=== PATIENT | male | born 1940 | race Caucasian/White ===

== ENCOUNTER 2020-05-31 08:42 | Outpatient (CLI) | payer MEDICARE, SELFPAY ==
[2020-05-31 08:57] LABS: Basophils Absolute Auto 0.1 K/mm3 (0.0-0.1); Basophils Percent Auto 1.8 % (0.2-1.2); Eosinophils Absolute Auto 0.4 K/mm3 (0-0.3); Eosinophils Percent Auto 6.5 % (0-4.4); Hematocrit 44.7 % (42.0-52.0); Hemoglobin 15.1 g/dL (14.0-18.0); Lymphocytes Absolute Auto 1.11 K/mm3 (0.9-3.2); Lymphocytes Percent Auto 16.4 % (18.3-44.2); Mean Corpuscular HGB Conc 33.8 g/dl (32-36); Mean Corpuscular Hemoglobin 30.9 pg (26-34); Mean Corpuscular Volume 91.4 fl (80-100); Mean Platelet Volume 8.9 fl (7.4-10.4); Monocytes Absolute Auto 0.4 K/mm3 (0.1-0.6); Monocytes Percent Auto 6.5 % (2.6-8.5); Neutrophils Absolute Auto 4.7 K/mm3 (1.3-6.7); Neutrophils Percent Auto 68.8 % (45.5-73.1); Platelet Count Result 221 k/mm3 (150-375); Red Blood Count 4.89 M/mm3 (4.6-6.20); Red Cell Distribution Width 12.4 % (11.5-14.5); White Blood Count 6.8 K/mm3 (4.5-10.0)
[2020-05-31 09:10] LABS: Alanine Aminotransferase 76 U/L (4-50); Albumin Level 4.2 g/dL (3.5-5.1); Alkaline Phosphatase 50 U/L (38-126); Anion Gap 6 mmol/L (8-16); Aspartate Amino Transferase 47 U/L (17-59); Bilirubin,Total 0.7 mg/dL (0.2-1.3); Blood Urea Nitrogen 11 mg/dL (9-20); Calcium 9.4 mg/dL (8.4-10.2); Carbon Dioxide 32 mmol/L (22-30); Chloride 103 mmol/L (98-107); Cholesterol 166 mg/dL (0-200); Estimated Glomerular Filt Rate > 60; Glucose 121 mg/dL (75-110); HDL Direct 43 mg/dL; Potassium 3.9 mmol/L (3.4-5.0); Sodium 141 mmol/L (137-145); Triglycerides 137 mg/dL (<150)
[2020-05-31 09:20] LABS: LDL Cholesterol Direct 91 mg/dL
[2020-06-04 00:20] LABS: PSA, Free 0.91 ng/mL; PSA, Total 5.9 ng/mL (<=4.0); Percent Free Prostate Spec Ag 15 % (>25)
== END 2020-05-31 08:43 | disposition home or self-care (01) ==
PROVIDERS: PCP Family Medicine; Visit Provider Family Medicine
DX: N40.1 Benign prostatic hyperplasia with lower urinary tract symptoms (principal); I10 Essential (primary) hypertension; E78.2 Mixed hyperlipidemia
CPT/HCPCS: 36415; 80053; 80061; 84153; 84154; 85025

== ENCOUNTER 2021-05-08 09:53 | Outpatient (CLI) | payer MEDICARE, SELFPAY ==
[2021-05-08 10:28] LABS: Basophils Absolute Auto 0.1 K/mm3 (0.0-0.1); Basophils Percent Auto 1.2 % (0.2-1.2); Eosinophils Absolute Auto 0.1 K/mm3 (0-0.3); Eosinophils Percent Auto 1.9 % (0-4.4); Hematocrit 46.3 % (42.0-52.0); Hemoglobin 15.5 g/dL (14.0-18.0); Immature Granulocyte Absolute 0.02 K/mm3 (0.00-0.031); Immature Granulocyte Percent A 0.3 % (0-0.5); Lymphocytes Absolute Auto 0.83 K/mm3 (0.9-3.2); Lymphocytes Percent Auto 11.2 % (18.3-44.2); Mean Corpuscular HGB Conc 33.5 g/dl (32-36); Mean Corpuscular Hemoglobin 30.5 pg (26-34); Mean Corpuscular Volume 91.1 fl (80-100); Mean Platelet Volume 9.1 fl (7.4-10.4); Monocytes Absolute Auto 0.5 K/mm3 (0.1-0.6); Monocytes Percent Auto 6.8 % (2.6-8.5); Neutrophils Absolute Auto 5.8 K/mm3 (1.3-6.7); Neutrophils Percent Auto 78.6 % (45.5-73.1); Platelet Count Result 212 k/mm3 (150-375); Red Blood Count 5.08 M/mm3 (4.6-6.20); Red Cell Distribution Width 13.2 % (11.5-14.5); White Blood Count 7.4 K/mm3 (4.5-10.0)
[2021-05-08 10:42] LABS: Alanine Aminotransferase 154 U/L (4-50); Albumin Level 4.5 g/dL (3.5-5.1); Alkaline Phosphatase 65 U/L (38-126); Anion Gap 8 mmol/L (8-16); Aspartate Amino Transferase 81 U/L (17-59); Blood Urea Nitrogen 14 mg/dL (9-20); Calcium 9.6 mg/dL (8.4-10.2); Carbon Dioxide 30 mmol/L (22-30); Chloride 104 mmol/L (98-107); Cholesterol 263 mg/dL (0-200); Estimated Glomerular Filt Rate > 60; Glucose 111 mg/dL (65-110); HDL Direct 47 mg/dL; Potassium 3.7 mmol/L (3.4-5.0); Sodium 142 mmol/L (137-145); Triglycerides 96 mg/dL (<150)
[2021-05-08 10:53] LABS: LDL Cholesterol Direct 185 mg/dL
[2021-05-08 11:34] LABS: Vitamin B12 > 1000.0 pg/mL (239-931)
[2021-05-11 11:56] LABS: Vitamin B6 62.1 ng/mL (2.1-21.7)
[2021-05-12 20:52] LABS: PSA, Free 0.98 ng/mL; PSA, Total 5.2 ng/mL (<=4.0); Percent Free Prostate Spec Ag 19 % (>25)
== END 2021-05-08 09:54 | disposition home or self-care (01) ==
PROVIDERS: PCP Family Medicine; Visit Provider Family Medicine
DX: R97.20 Elevated prostate specific antigen [PSA] (principal); I10 Essential (primary) hypertension; E78.2 Mixed hyperlipidemia; E56.9 Vitamin deficiency, unspecified; E03.9 Hypothyroidism, unspecified; R68.89 Other general symptoms and signs
CPT/HCPCS: 36415; 80053; 80061; 82607; 84153; 84154; 84207; 84443; 85025

== ENCOUNTER → 2021-05-16 08:58 | Outpatient (CLI) | payer MEDICARE, SELFPAY ==
--- NOTE | ~2021-05-16 | US_ITS ---
EXAMINATION: US abdomen limited DATE: 05/16/2021 10:40 INDICATION: Abnormal levels of other serum enzymes TECHNIQUE: Multiple grayscale and Doppler ultrasound images of the abdomen were obtained. COMPARISON: None FINDINGS: The pancreatic head and body are normal in appearance. The pancreatic tail is not visualized. Liver has normal contour, with a smooth surface. There is increased parenchymal echogenicity and coarsened echotexture consistent with diffuse hepatic steatosis with typical small geographic hypoechoic region s of focal fatty sparing along the gallbladder fossa. 2.7 cm anechoic hepatic cyst. No other hepatic lesions identified. No intrahepatic biliary duct dilation suspected. Portal venous flow was seen in t he hepatopetal, normal direction and has normal Doppler waveform. The gallbladder is normal in appear ance. There is no cholelithiasis. The common bile duct measures 4 mm, which is normal. Visualized po rtions of the inferior vena cava and aorta are normal. Right kidney measures 10.9 cm in length with n ormal contour and echogenicity and no hydronephrosis. IMPRESSION: 1. Diffuse hepatic steatosis. Reviewed, dictated and finalized at location A. IGN EXCHANGE DEALER
--- NOTE | ~2021-05-16 | MR_ITS ---
EXAMINATION: MR brain IAC wo/w con DATE: 05/16/2021 10:17 INDICATION: Other general symptoms and signs. TECHNIQUE: Magnetic resonance imaging (MRI) of the brain, brainstem, and internal auditory canals was performed without and with 18 mL MultiHance intravenous contrast. Sequences included sagittal and ax ial T1-weighted FSE, axial diffusion-weighted FS EPI, axial T2*-weighted GRE, axial T2-weighted FLAIR Propeller, axial T2-weighted Propeller, small rpyan-kb-cloa coronal FIESTA, small jyjmy-ij-wpcm sudhakar nal T1-weighted FSE, and small ublxq-po-axui axial T1-weighted SPGR. Postcontrast sequences included axial T1-weighted FSE, small oerrh-wz-lhko coronal T1-weighted FSE, and small hdrcs-cf-feif axial T1- weighted SPGR. Apparent diffusion coefficient (ADC) maps were created. COMPARISON: None. FINDINGS: There are scattered areas of nonspecific increased T2-weighted signal intensity in the cere bral white matter, which is within normal limits for the patient's age. There is no intracranial hemo rrhage, acute infarction, or abnormal intracranial mass lesion. The ventricles are normal in size. Th ere are likely changes of ocular lens replacement surgeries. There is mild mucosal thickening in the ethmoid sinuses. There is a trace right mastoid effusion. The internal auditory canals and inner and middle ears are normal. IMPRESSION: 1. Normal aging brain. Reviewed, dictated and finalized at location E. AD MILLING MACHINE SET UP OPERATOR IMPRESSION: 1. Normal aging brain.
[2021-05-16 09:34] LABS: Estimated Glomerular Filt Rate > 60
== END ==
PROVIDERS: PCP Family Medicine; Visit Provider Family Medicine
DX: R74.8 Abnormal levels of other serum enzymes (principal)
CPT/HCPCS: 70553; 76705; A9577

== ENCOUNTER 2021-08-15 18:04 | Observation (INO) | payer MEDICARE, SELFPAY ==
[2021-08-15] VITALS (12 sets, daily range): BP systolic 113–147; BP diastolic 67–87; PULSE 65–72; RESP 17–18; TEMP 36.4; O2SAT 94–100
--- NOTE | ~2021-08-15 | XR_ITS ---
EXAM: XR knee RT 2V HISTORY: pain s/p fall,GENERALIZED PAIN RT KNEE COMPARISON: 05/24/15 FINDINGS: Normal mineralization. No fracture or dislocation. No lytic or blastic lesion. Right knee arthroplasty, without complication. No erosion or periosteal change. Soft tissues within normal limit s. IMPRESSION: No acute osseous finding in the right knee. No hardware related complication. Reviewed, dictated and finalized at location K.
--- NOTE | ~2021-08-15 | CT_ITS ---
EXAMINATION: CT brain wo con DATE: 08/15/2021 22:16 INDICATION: increased confusion, unwitnessed fall today TECHNIQUE: Computed tomography (CT) of the head was performed without intravenous contrast. The mA wa s adjusted according to patient size. Iterative reconstruction technique was employed. The dose-lengt h product was 605.33 mGy-cm. COMPARISON: None FINDINGS: No acute intracranial hemorrhage or extra-axial fluid collection. No hydrocephalus, mass, or herniation. No acute ischemic infarct. Unremarkable dural venous sinus attenuation. No acute osseous abnormality. The aerated spaces are clear. Mild atrophy and moderate chronic white matter change. Bilateral lens replacements. IMPRESSION: No acute intracranial process. Reviewed, dictated and finalized at location K.
[2021-08-15 20:53] LABS: Basophils Absolute Auto 0.1 K/mm3 (0.0-0.1); Basophils Percent Auto 0.5 % (0.2-1.2); Eosinophils Percent Auto 0.2 % (0-4.4); Hematocrit 41.4 % (42.0-52.0); Immature Granulocyte Absolute 0.04 K/mm3 (0.00-0.031); Immature Granulocyte Percent A 0.4 % (0-0.5); Lymphocytes Absolute Auto 0.84 K/mm3 (0.9-3.2); Lymphocytes Percent Auto 7.9 % (18.3-44.2); Mean Corpuscular HGB Conc 33.8 g/dl (32-36); Mean Corpuscular Hemoglobin 30.2 pg (26-34); Mean Corpuscular Volume 89.2 fl (80-100); Mean Platelet Volume 8.9 fl (7.4-10.4); Monocytes Absolute Auto 0.6 K/mm3 (0.1-0.6); Neutrophils Absolute Auto 9.1 K/mm3 (1.3-6.7); Platelet Count Result 224 k/mm3 (150-375); Red Blood Count 4.64 M/mm3 (4.6-6.20); Red Cell Distribution Width 12.8 % (11.5-14.5); White Blood Count 10.7 K/mm3 (4.5-10.0)
[2021-08-15 20:56] LABS: Appearance Urine Clear (Clear); Bilirubin Urine Negative (Negative); Blood Urine Negative (Negative); Color Urine Yellow (Yellow); Glucose Urine UA Negative (Negative); Ketones Urine Trace mg/dL (Negative); Leukocyte Esterase Ur Negative LEU/UL (Negative); Nitrate Urine Negative (Negative); Protein Urine Trace mg/dL (Negative); Urobilinogen Urine 0.2 mg/dL (<2.0); pH Urine 8.5 (5.0-9.0)
--- NOTE | 2021-08-15 20:58 | ED.NAVMDI ---
HPI - Nausea/Vomiting/Diarrhea General Chief complaint: Nausea/Vomiting/Diarrhea <GAYLA Feliciano Last Filed: 08/16/21 02:35> Stated complaint: feel sickly <GAYLA Feliciano Last Filed: 08/16/21 02:35> Time Seen by Provider: 08/15/21 20:24 <GAYLA Feliciano Last Filed: 08/16/21 02:35> History of Present Illness HPI Narrative: Patient is a 80-year-old male with a history of angle-closure glaucoma status post surgery 2 weeks ago, dementia, who presents emergency department with his friend, who is his power of hospital superintendent, for nausea and reported low blood pressure earlier today. Patient's friend states that patient has had increased confusion over the past 2 days as well, and when he went to check on him, he was complaining of nausea. He took his blood pressure, and noted it was low, and decided to bring him to the ED. Patient denies this symptom, he states that he fell earlier today landing on his right knee, is currently feeling fine, and wants to go home. He denies any head injury or loss of consciousness, but he is a poor historian secondary to dementia. POA states that he does not feel that patient is safe to go home due to falls and increased confusion. Additionally, patient has been experiencing eye redness since his surgery, but no pain or change to his vision. <GAYLA Feliciano Last Filed: 08/16/21 02:35> Related Data Home medications: Home Medications Medication Instructions Recorded Confirmed amlodipine 10 mg PO HS 08/16/21 08/16/21 atropine 1 drp RIGHT EYE BID 08/16/21 08/16/21 donepezil 5 mg PO HS 08/16/21 08/16/21 losartan 100 mg PO DAILY 08/16/21 08/16/21 memantine 5 mg PO BID 08/16/21 08/16/21 prednisolone acetate 1 drp RIGHT EYE Q2H 08/16/21 08/16/21 <GAYLA Feliciano Last Filed: 08/16/21 02:35> Allergies/Adverse reactions: Allergies Allergy/AdvReac Type Severity Reaction Status Date / Time No Known Allergies Allergy Verified 08/03/21 13:26 <Inocencia Pisano PA-C - Last Filed: 08/16/21 02:35> Review of Systems Review of Systems: Gen: Denies fevers or chills Eyes: Denies eye pain or visual change ENT: Denies congestion Respiratory: Denies shortness of breath or cough CV: Denies chest pain or palpitations GI: Reports nausea, resolved. Denies abdominal pain emesis or diarrhea denies burning, urgency, frequency or hematuria Musculoskeletal: Denies back pain or muscle pain Neuro: Denies numbness, tingling, weakness or focal weakness Skin: Denies rash Except as documented, all other systems reviewed and negative <Inocencia Pisano PA-C - Last Filed: 08/16/21 02:35> All systems reviewed & are unremarkable except as noted in HPI and below <Inocencia Pisano PA-C - Last Filed: 08/16/21 02:35> [facility] Past Medical History Medical History: Medical History Arthritis Corneal dystrophy Elevated PSA Elevated PSA, less than 10 ng/ml Essential (primary) hypertension Fatty liver Glaucoma (increased eye pressure) Lead exposure Mixed hyperlipidemia <Inocencia Pisano PA-C - Last Filed: 08/16/21 02:35> Surgical History Surgical History: Surgical History History of total knee arthroplasty Hx of blepharoplasty <Inocencia Pisano PA-C - Last Filed: 08/16/21 02:35> Family History Family History: Family History Father Hypertension Cerebrovascular accident Sibling Patient's sister is in good health Family history of lymphoma <Inocencia Pisano PA-C - Last Filed: 08/16/21 02:35> Social History Social History: Social History (Updated 08/03/21 @ 13:27 by Lesley Frazier) Social History: Smoking status: Never smoker Second hand tobacco smoke exposure: No Alcoho
[2021-08-15 21:04] LABS: Mucus Urine Few /lpf; WBC Urine 0-3 /hpf
[2021-08-15 21:07] LABS: Add Urine Microscopic? YES
[2021-08-15 21:08] LABS: Alanine Aminotransferase 56 U/L (4-50); Albumin Level 4.5 g/dL (3.5-5.1); Alkaline Phosphatase 66 U/L (38-126); Anion Gap 9 mmol/L (8-16); Aspartate Amino Transferase 42 U/L (17-59); Bilirubin,Total 0.8 mg/dL (0.2-1.3); Blood Urea Nitrogen 16 mg/dL (9-20); Calcium 10.2 mg/dL (8.4-10.2); Carbon Dioxide 26 mmol/L (22-30); Chloride 103 mmol/L (98-107); Estimated CRCL calculation 63 ml/min; Estimated Glomerular Filt Rate > 60; Glucose 135 mg/dL (65-110); Lipase 192 U/L (23-300); Potassium 3.5 mmol/L (3.4-5.0); Sodium 138 mmol/L (137-145)
[2021-08-15 22:52] LABS: SARS-CoV-2 RNA PCR Negative
[2021-08-16] VITALS (7 sets, daily range): BP systolic 94–155; BP diastolic 54–91; PULSE 65–74; RESP 16–21; TEMP 36.1–37.2; O2SAT 95–100; BMI 27.9
--- NOTE | 2021-08-16 02:01 | PC.NURSE ---
This patient, Enmanuel Kelly, was admitted to [address] [place] [address] Room 305-02. Patient/family oriented to hospital policies and general routines including ID bracelet, bed and alarms, visiting hours, pain management, procedures, bathroom and other care routines, personal items, smoking policy, room service/diet, and visiting hours. Information on how to activate the Rapid Response Team has been discussed. Patient/Family are encouraged to report perceived risks to care and to ask questions if they do not understand what they are told or what they should do.
[2021-08-16] MEDS: ATORVASTATIN 40 MG TABLET PO (09:30)
[2021-08-16] MEDS: ATROPINE SULFATE 1% OPHTH SOLN 5 ML BOTTLE 1 DROP RIGHT EYE ×2 (09:31→17:30)
[2021-08-16] MEDS: prednisoLONE ACETATE 1% OPHTH 5 ML 1 DROP RIGHT EYE ×8 (09:31→22:59)
[2021-08-16] MEDS: TAMSULOSIN HCL 0.4 MG CAPSULE PO (09:32)
[2021-08-16] MEDS: hydroCHLOROthiazide 12.5 MG CAPSULE PO (09:32)
[2021-08-16] MEDS: LOSARTAN POTASSIUM 100 MG TABLET PO (09:32)
--- NOTE | 2021-08-16 11:07 | PM.IMHP ---
H&P: HPI History of Present Illness Date/Time: 08/16/21 11:07 Patient is alert to self and place. He is disoriented to time. He is confused on plan of care. Patient does not a good short-term memory. He continues being needed orientated in turn her conversation. Patient will need placement in a facility for safety and continued management. No acute concerns reported by RN during the night. Chief Complaint: Acute confusion, patient requires placement Review of Systems Review of Systems: All systems reviewed & are unremarkable except as noted in HPI and below PMFSH Past Medical History Medical History Arthritis Corneal dystrophy Elevated PSA Elevated PSA, less than 10 ng/ml Essential (primary) hypertension Fatty liver Glaucoma (increased eye pressure) Lead exposure Mixed hyperlipidemia Surgical History Surgical History History of total knee arthroplasty Hx of blepharoplasty Family History Family History Father Hypertension Cerebrovascular accident Sibling Patient's sister is in good health Family history of lymphoma Social History Social History (Updated 08/03/21 @ 13:27 by Lesley Frazier) Social History: Smoking status: Never smoker Second hand tobacco smoke exposure: No Alcohol intake: current Alcohol use details: Occasionally Substance use: never Substance use type: does not use Additional living arrangements comments: Gender identity (if verbalized by the patient): Male Sexual Orientation (if Verbalized by the Patient): Straight or Heterosexual Spiritual care concerns: No Meds Home Medications and Allergies Home Medications Medication Instructions Recorded Confirmed Type atorvastatin 40 mg tablet 40 mg PO DAILY #90 tablet 05/13/21 08/16/21 Rx hydrochlorothiazide 12.5 mg capsule 12.5 mg PO DAILY #90 cap 05/13/21 08/16/21 Rx latanoprost 0.005 % eye drops 1 drp EACH EYE QPM #7.5 ml 05/13/21 08/16/21 Rx tamsulosin 0.4 mg capsule 0.4 mg PO DAILY #90 cap 05/13/21 08/16/21 Rx donepezil 23 mg tablet 23 mg PO DAILY #90 tablet 08/08/21 08/16/21 Rx memantine 28 mg capsule 28 mg PO DAILY #90 ea 08/08/21 08/16/21 Rx sprinkle,extended release 24hr amlodipine 10 mg PO HS 08/16/21 08/16/21 History atropine 1 drp RIGHT EYE BID 08/16/21 08/16/21 History donepezil 5 mg PO HS 08/16/21 08/16/21 History losartan 100 mg PO DAILY 08/16/21 08/16/21 History memantine 5 mg PO BID 08/16/21 08/16/21 History prednisolone acetate 1 drp RIGHT EYE Q2H 08/16/21 08/16/21 History Allergies Allergy/AdvReac Type Severity Reaction Status Date / Time No Known Allergies Allergy Verified 08/03/21 13:26 Vital Signs Vital Signs - 24 hr 08/15/21 18:59 08/15/21 21:19 08/15/21 21:20 Temperature 97.6 F Pulse Rate 65 Respiratory Rate 17 Blood Pressure 113/67 136/73 Pulse Oximetry 96 99 99 08/15/21 21:30 08/15/21 21:31 08/15/21 21:45 Temperature Pulse Rate Respiratory Rate Blood Pressure 138/79 Pulse Oximetry 99 97 99 08/15/21 21:46 08/15/21 22:00 08/15/21 22:01 Temperature Pulse Rate Respiratory Rate Blood Pressure 125/75 132/71 Pulse Oximetry 98 97 94 08/15/21 22:22 08/15/21 22:32 08/15/21 22:33 Temperature Pulse Rate 71 72 Respiratory Rate 18 18 Blood Pressure 140/83 131/87 147/84 H Pulse Oximetry 100 100 100 08/16/21 00:11 08/16/21 01:35 08/16/21 02:00 Temperature 96.9 F L Pulse Rate 72 74 68 Respiratory Rate 16 16 16 Blood Pressure 105/91 H 135/82 155/82 H Pulse Oximetry 98 99 99 08/16/21 05:24 08/16/21 09:22 Temperature 96.9 F L Pulse Rate 69 Respiratory Rate 16 Blood Pressure 155/81 H Pulse Oximetry 100 100 Exam Narrative: General: No acute distress. Mental Status: Awake, alert and oriented to person, plac
[2021-08-16] MEDS: MEMANTINE HCL XR 28 MG CAP PO (12:23)
[2021-08-16] MEDS: LATANOPROST 0.005% OP SOLN 2.5 ML BTL 1 DROP EACH EYE (17:30)
[2021-08-16] MEDS: amLODIPine BESYLATE 5 MG TABLET 10 MG PO (20:09)
[2021-08-16] MEDS: DONEPEZIL HCL 10 MG TABLET PO (20:09)
[2021-08-17 06:00] VITALS: BP 122/71; PULSE 58; RESP 16; TEMP 36.6; O2SAT 96
[2021-08-17 07:04] LABS: Basophils Absolute Auto 0.2 K/mm3 (0.0-0.1); Eosinophils Absolute Auto 0.3 K/mm3 (0-0.3); Eosinophils Percent Auto 3.7 % (0-4.4); Hematocrit 40.1 % (42.0-52.0); Hemoglobin 13.6 g/dL (14.0-18.0); Immature Granulocyte Absolute 0.03 K/mm3 (0.00-0.031); Immature Granulocyte Percent A 0.4 % (0-0.5); Lymphocytes Absolute Auto 1.43 K/mm3 (0.9-3.2); Lymphocytes Percent Auto 17.5 % (18.3-44.2); Mean Corpuscular HGB Conc 33.9 g/dl (32-36); Mean Corpuscular Hemoglobin 30.4 pg (26-34); Mean Corpuscular Volume 89.7 fl (80-100); Mean Platelet Volume 9.3 fl (7.4-10.4); Monocytes Absolute Auto 0.7 K/mm3 (0.1-0.6); Monocytes Percent Auto 8.6 % (2.6-8.5); Neutrophils Absolute Auto 5.5 K/mm3 (1.3-6.7); Neutrophils Percent Auto 67.8 % (45.5-73.1); Platelet Count Result 221 k/mm3 (150-375); Red Blood Count 4.47 M/mm3 (4.6-6.20); Red Cell Distribution Width 12.9 % (11.5-14.5); White Blood Count 8.2 K/mm3 (4.5-10.0)
[2021-08-17 07:23] LABS: Anion Gap 7 mmol/L (8-16); Blood Urea Nitrogen 18 mg/dL (9-20); Calcium 9.3 mg/dL (8.4-10.2); Carbon Dioxide 27 mmol/L (22-30); Chloride 106 mmol/L (98-107); Estimated CRCL calculation 52 ml/min; Estimated Glomerular Filt Rate > 60; Glucose 93 mg/dL (65-110); Magnesium 1.8 mg/dL (1.6-2.3); Potassium 3.6 mmol/L (3.4-5.0); Sodium 140 mmol/L (137-145)
[2021-08-17 08:00] VITALS: PULSE 58; RESP 16; O2SAT 96
[2021-08-17] MEDS: LOSARTAN POTASSIUM 100 MG TABLET PO (08:42)
[2021-08-17] MEDS: ATORVASTATIN 40 MG TABLET PO (08:42)
[2021-08-17] MEDS: ATROPINE SULFATE 1% OPHTH SOLN 5 ML BOTTLE 1 DROP RIGHT EYE (08:42)
[2021-08-17] MEDS: TAMSULOSIN HCL 0.4 MG CAPSULE PO (08:42)
[2021-08-17] MEDS: MEMANTINE HCL XR 28 MG CAP PO (08:42)
[2021-08-17] MEDS: hydroCHLOROthiazide 12.5 MG CAPSULE PO (08:43)
[2021-08-17] MEDS: prednisoLONE ACETATE 1% OPHTH 5 ML 1 DROP RIGHT EYE ×2 (08:43→10:19)
--- NOTE | 2021-08-17 11:50 | PM.DS ---
DS: Admitting Diagnosis Discharge Date 08/17/2021 Admitting Diagnosis Acute on chronic confusion DS: Discharge Diagnosis Discharge Diagnosis (1) Leukocytosis: Code(s): D72.829 - Elevated white blood cell count, unspecified Status: Acute Assessment and Plan: Monitor vital signs, I and O shows, WBC and trend fever (2) Confusion: Code(s): R41.0 - Disorientation, unspecified Status: Acute Assessment and Plan: Reorientation (3) Alzheimer's dementia: Qualifiers: Alzheimer's disease onset: late-onset Dementia behavioral disturbance: without behavioral disturbance Qualified Code(s): G30.1 - Alzheimer's disease with late onset; F02.80 - Dementia in other diseases classified elsewhere without behavioral disturbance Code(s): G30.9 - Alzheimer's disease, unspecified; F02.80 - Dementia in other diseases classified elsewhere without behavioral disturbance Status: Acute Assessment and Plan: 3 orientated Consult Case Management for possible placement (4) Hyperglycemia: Code(s): R73.9 - Hyperglycemia, unspecified Status: Acute Assessment and Plan: Monitor blood glucose levels were DS: Summary Hospital Course Reason for hospitalization: Acute confusion Hospital Course: Patient is a 80-year-old male who is alert to self and place. He has a past medical history of hypertension hyperlipidemia fatty liver. The patient is a poor historian and therefore is unable to provide an accurate history and plan of care. A mini-mental was performed during his hospitalization which revealed 20 of 30 suggesting moderate dementia. Patient does not have any children and his significant other several years ago. He has a power of patent attorney named Kana who has been a) for 20 years, paperwork is within the chart. My plan is to send him to an assisted living facility. We had an in-depth discussion about fdc, skilled therapy and assisted living facility. Myc was against going to a fdc. We discussed asking for respite care at a assisted living facility for the weekend or possibly staying with the patient during the weekend. Patient is technically able to continue to care for himself and he does not have any medical reasons to be admitted. Patient was able to work well with physical therapy and occupational therapy. Attempted to support friends with resources in the outpatient setting. Case management also provided Ryann with information for assisted living and 24 hour care at home. Status at Discharge Cognitive/behavioral status at discharge: Alert to self and place Functional status at discharge: independent ambulation Overall status at discharge: patient is back to baseline Time Spent with Patient Time attestation: Total time spent providing and/or coordinating discharge services: Time spent: Less than 30 minutes Specific discharge activities: Strongly encouraged to go to an assisted living facility and follow up with primary care physician within 1 week Exam Narrative: General: No acute distress. Mental Status: Awake, alert and oriented to person, place, with clear speech. Skin: Skin in warm, dry and intact without rashes or lesions. Head: Normocephalic and atraumatic. Eyes: Conjunctivae are clear without exudates or hemorrhage. Sclera is non-icteric. EOM are intact, PERRLA. Ears: The external ear and canal are non-tender and without swelling or discharge. Nose: Nasal mucosa is pink and moist. Septum midline. Nares patent bilaterally. Throat: Oral mucosa pink and moist with good dentition. Tongue midline. Neck: The neck supple without adenopathy. Trachea midline. No JVD. Cardiac: S1 and S2 regular rate and rhythm. No murmurs, gallops, or rubs auscultated. Respiratory: Chest wall symmetric, nontender and without deformity or trauma. Respirations even and unlabored. Lung sounds are clear to auscultation in all lobes bilaterally without whe
[2021-08-17 14:00] VITALS: BP 116/57; PULSE 71; RESP 20; TEMP 36.2; O2SAT 95
== END 2021-08-17 15:15 | disposition home or self-care (01) ==
LOC: ANHED 23:04 → ANH3MEDSUR 08-16 11:15
PROVIDERS: Physician Assistant; Admitting Provider Internal Medicine; Emergency Provider Emergency Medicine; PCP Family Medicine; Visit Provider Nurse Practitioner Family
DX: D72.829 Elevated white blood cell count, unspecified (principal); R11.2 Nausea with vomiting, unspecified; R19.7 Diarrhea, unspecified; R41.0 Disorientation, unspecified; E78.5 Hyperlipidemia, unspecified; I10 Essential (primary) hypertension; G30.9 Alzheimer's disease, unspecified; F02.80 Dementia in other diseases classified elsewhere, unspecified severity, without behavioral disturbance, psychotic disturbance, mood disturbance, and anxiety; R73.9 Hyperglycemia, unspecified; Z20.822 Contact with and (suspected) exposure to COVID-19
CPT/HCPCS: 36415; 70450; 73560; 80048; 80053; 81001; 83690; 83735; 85025; 97165; 99285; A9270; C9803; G0378; U0003; U0005

== ENCOUNTER 2024-05-19 16:38 | Inpatient (IN) | payer MEDICARE, SELFPAY ==
--- NOTE | ~2024-05-19 | CT_ITS ---
History: Lethargic, increasing confusion PROCEDURE: CT head without contrast. COMPARISON: 08/15/2021 TECHNIQUE: Axial imaging of the head performed from the skull base to the vertex without IV contrast. Sagittal a nd coronal reformations obtained. DLP: 681mGy-cm FINDINGS: The ventricles are enlarged. The dilatation of the ventricles is proportional to the degree of sulcal prominence, not uncommon in the senescent brain. Decreased attenuation is identified within the periventricular white matter, likely secondary to micr ovascular ischemic disease, in a patient of this age. There is no mass, mass effect or midline shift. There is no abnormal extra-axial fluid collection or intracranial hemorrhage. Visualized paranasal sinuses are clear. The mastoid air cells are well aerated. No acute displaced fractures within the overlying cranium. Impression: No acute intracranial hemorrhage or suspicious mass effect. Reviewed, dictated and finalized at location A. [employer] PROF[employer] Impression: No acute intracranial hemorrhage or suspicious mass effect.
--- NOTE | ~2024-05-19 | XR_ITS ---
CHEST RADIOGRAPH CLINICAL HISTORY: Fever . COMPARISON: 02/15/2016 TECHNIQUE: Single portable view of the chest. FINDINGS The cardiomediastinal silhouette is unremarkable. Increased interstitial markings are identified bilaterally, findings suggesting mild pulmonary vascul ar congestion. The lungs are otherwise clear. IMPRESSION: Mild pulmonary vascular congestion, without focal infiltrate or effusion. Reviewed, dictated and finalized at location A. WORKER
[2024-05-19 16:42] VITALS: BP 131/68; PULSE 75; RESP 23; TEMP 38.2
[2024-05-19 16:46] VITALS: BP 132/67; PULSE 74; RESP 21; TEMP 38.2; O2SAT 94
[2024-05-19 16:47] VITALS: O2SAT 95
--- NOTE | 2024-05-19 17:43 | ECG_ITS ---
Test Date: 2024-05-19 18:31:29 Measurements Intervals [place] Rate: 70 P: 63 UT: 195 QRS: -61 QRSD: 142 T: 23 QT: 392 QTc: 425 Interpretive Statements SINUS RHYTHM RIGHT BUNDLE BRANCH BLOCK LEFT ANTERIOR FASCICULAR BLOCK BASELINE ARTIFACT- I, II, III, AVR, AVL, AVF, V1-V6 ABNORMAL ECG No previous ECG available for comparison Electronically Signed On 05-20-2024 06:10:30 ARTIST'S REPRESENTATIVE by Adrián Wilson D.O.
--- OUTSIDE RECORDS SUMMARY | 2024-05-19 17:58 | XMS_ITS | Continuity of Care Document ---
Author Organization [facility] Address [id number] [place] [address] [address] Phone Care Team Providers Care Pipe Stress Engineer Name Role Phone [facility], [facility] Unavailable Unavail able Sickage, Cassie Unavailable Unavailable Procedures Procedure Date Progressive Lens Per Lens Oct- Vision Svcs Frames Purchases Oct- Anti-reflective Coating Oct- Tint Photochromatic, Polycarb Oct--201 0 Polycarb Lens Per Lens Oct- Medical Tax Oct- Eye Exam & Treatment Oct- Optic Nerve Head Eval Oct- IPO Reduced 15% Oct Fundus Photography W/ Report Refraction Jan- Visual Field Examination-Professional Helen Visual Field Examination(s) Office/outpatient Visit, Est Optic Nerve Head Eval IPO Reduced 15% Office/outpatient Visit, Est Optic Nerve Head Eval IPO Reduced 15% Visual Field Examination-Professional Marcie Visual Field Examination(s) Office/outpatient Visit, Est Optic Nerve Head Eval IOP Red Less Than 15% W Plan Of Care Apr IOP Red Less That 15% W Plan Of Care Apr Office/outpatient Visit, Est Optic Nerve Head Eval Fundus Photography W/ Report Visual Field Examination(s) Office/outpatient Visit, Est Frames Deluxe Progressive Lens, Hi Index Anti-reflective Coating Tint Photochromatic, Hi Index 7 Lens-Index>1.66Plas;>1.80Glas 7 Eye Exam & Treatment Refraction Fundus Photography W/ Report Visual Field Examination(s) Office/outpatient Visit, Est Advance Directives Directive Yes / No Effective Date File Name No Information Encounters Encounter Description Practice Location Reason(s) For Visit Diagnoses Date Provider Providers Copied on Encounter [facility], [address] [place] [address] [address], [place], [place], [address], tel:[phone] [facility] No Information Jan- 9-201 0 [facility] . [address] [facility], [facility] [address], [place], [place], [id number], . tel:[phone] Referring Provider: Jennifer Cochran, [address], [place], [address]. tel:[phone] Provider: Cassie Ayala, [address] [place], [address]. tel:[phone] [facility], [address] [place] [address] [address], [place], [place], [address], [place] tel:[phone] [facility] No Information Jan-1 2-201 0 Gris Mcintyre [address] [facility] [address] , [address], [place], [address], [place]. tel:[phone] Referring Provider: Jennifer Cochran, [address], [place], [address]. tel:[phone] [facility], [address] [place] [address] [address], [place], [place], [address], [place] tel:[phone] [facility] No Information Shamir-0 8-201 0 Gris Mcintyre [address] , [address], [place], [facility], [place]. tel:[phone] Referring Provider: Jennifer Cochran, [address], [place], [facility]. tel:[phone] [facility], [address] [place] [address] [address], [place], [place], [address], [place] tel:[phone] [facility] No Information Shamir-0 7-201 0 Gris Rodriguez. [address] , [address], [place], [facility], [place]. tel:[phone] Referring Provider: Jennifer Cochran, [address], [place], [facility]. tel:[phone] Office/outpat ient Visit, [facility], [address] [facility] [address], [place], [place], [address], [place] tel:[phone] [facility] No Information 2 6-201 0 Gris Rodriguez. [address] , [address], [place], [facility], [place]. tel:[phone] Office/outpat ient Visit, [facility], [address], [place], [place], [address], [place] tel:[phone] [facility] No Information Dec-2 2-200 9 Gris Rodriguez. [address] , [address], [place], [facility], [place]. tel:[phone] [facility], [address], [place], [place], [address], [place] tel:[phone] [facility] No Information August-1 9-200 9 Gris Rodriguez. [address] , [address], [place], [facility], [place]. tel:[phone] Referring Provider: Jennifer Cochran, [address], [place], [facility]. tel:[phone] [facility], [address], [place], [place], [address], [place] tel:[phone] [facility] No Information 8-200 9 Gris Rodriguez. [address] , [address], [place], [facility], [place]. tel:[phone] Referring Provider: Jennifer Cochran, [address], [place], [facility]. tel:[phone] Office/outpat ient Visit, [facility], [address], [place], [place], [address], [place] tel:[phone] [facility] No Information 0200 9 Gris Rodriguez. [address] , [address], [place], [facility], [place]. tel:[phone] Office/outpat ient Visit, [facility], [address], [place], [place], [address], [place] tel:[phone] [facility] No Information 6200 8 Gris Rodriguez. [address] , [address], [place], [facility], [place]. tel:[phone] Referring Provider: Jennifer Cochran, [address], [place], [facility]. tel:[phone] [facility], [address], [place], [place], [address], [place] tel:[phone] [facility] No Information 0200 8 Gris Rodriguez. [address] , [address], [place], [facility], [place]. tel:[phone] Referring Provider: Jennifer Cochran, [address], [place], [facility]. tel:[phone] Office/outpat ient Visit, Est [facility], [address], [place], [place], [address], [place] tel:[phone] [facility] No Information 2 8 Gris Rodriguez. [address] , [address], [place], [facility], [place]. tel:[phone] [facility], [address], [place], [place], [address], [place] tel:[phone] [facility] No Information 7 [facility] . [address] [facility], [address], [place], [place], [address], [place]. tel:[phone] Referring Provider: Jennifer Cochran, [address], [place], [facility]. tel:[phone] sulting Provider: Cassie Ayala, [address] [place] [address], [facility]. tel:[phone] [facility], [address], [place], [place], [address], [place] tel:[phone] [facility] No Information 7 Gris Rodriguez. [address] , [address], [place], [facility], [place]. tel:[phone] Referring Provider: Jennifer Cochran, [address], [place], [facility]. tel:[phone] [facility], [address], [place], [place], [address], [place] tel:[phone] [facility] No Information 7 Gris Rodriguez. [address] , [address], [place], [facility], [place]. tel:[phone] Referring Provider: Jennifer Cochran, [address], [place], [address]. tel:[phone] Office/outpat ient Visit, [facility], [address], [place], [place], [address], [place] tel:[phone] [facility] No Information Mar-2 0-200 7 Landry Jennifer. [address] , [address], [place], [address], [place]. tel:[phone] Family History Family Member Type Diagnosis Age At Onset No Information Payers Payer name Insurance type Covered alliance party ID Authoriza tion(s) No Information Social History Type Description Quantity Date Captured Comments Sex Male Smoking Status No Information Chief Complaint And Reason For Visit No Information Reason For Referral Reason For Referral No Information History Of Present Illness Encounter Date Complaint History Of Prese nt Illness No Information Functional Status Date Functional Assessmen t No Information Instructions Date Instruction Additional Infor mation No Information Assessments Type Assessment Date No Information Patient Care Teams Name Effective Dates (start - stop) Status Members No Information
--- OUTSIDE RECORDS SUMMARY | 2024-05-19 17:58 | XMS_ITS | Referral Summary ---
Author Organization [facility] [place] [address] Address [address] [place] [address] Care Team Providers Care Nut Packer Name Role Phone Mindy Walker MD Primary Care Provider Allergies No known active allergies Medications doxycycline (doxycycline) 100 mg capsule take 1 tablet by oral route every day 0 0 6 Active tafluprost (ZIOPTAN, PF,) 0.0015 % dropperette instill 1 drop by ophthalmic route every day into affected eye(s) 0 each 0 6 Active atorvastatin (LIPITOR) 40 mg tablet take 1 tablet by oral route every day 0 0 6 Active wwrhq-5q-frx-epa -fish oil (OMEGA 3) 350-400 mg capsule 0 0 6 Active meloxicam (MOBIC) 15 mg tablet take 1 tablet by oral route every day 0 0 6 Active b complex vitamins tablet take 1 by Oral route once 0 0 6 Active losartan (COZAAR) 25 mg tablet take 1 tablet by oral route every day 0 0 6 Active ergocalciferol (VITAMIN D2) 50,000 unit capsule take 1 capsule by oral route every week 0 0 6 Active dorzolamide-dolores lol, PF, (COSOPT, PF,) 2-0.5 % dropperette instill 1 drop by ophthalmic route 2 times every day into affected eye(s) 0 each 0 6 Active amLODIPine (NORVASC) 10 mg tablet take 1 tablet by oral route every day 0 0 6 Active Active Problems Problem Noted Date Diagnosed Date Abnormal electrocardiography 05/16/2015 Overview (07/20/2016): Abnormal ECG Preoperative state 05/16/2015 Overview (07/20/2016): Preoperative cardiovascular examination Benign hypertension 05/16/2015 Overview (07/20/2016): HTN (hypertension), benign Dyslipidemia 05/16/2015 Overview (07/20/2016): Dyslipidemia Family history of coronary artery disease 2015 Overview (07/20/2016): Family history of premature CAD Obesity with body mass index 30 or greater 05/16 Overview (07/20/2016): Obesity (BMI 30-39.9) Social History Tobacco Use Types Packs/Day Years Used Date Smoking Tobacco: Former Alcohol Use Standard Drinks/Week Comments Yes 0 (1 standard drink = 0.6 oz pur e alcohol) Personal Safety Answer Date Recorded Getting School Help Needed Not on file 06/27 Sex and Gender Information Value Date Recorded Sex Assigned at Not on file Legal Sex 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 Gender Identity Not on file Sexual Orientation Not on file Last Filed Vital Signs Vital Sign Reading Time Taken Comments Blood Pressure 138/81 05/16/2015 2:16 PM FORENSIC MANAGER Pulse 74 05/16/2015 2:16 PM FORENSIC MANAGER Temperature - - Respiratory Rate - - Oxygen Saturation - - Inhaled Oxygen Concentration - - Weight 102.1 kg (225 lb) 05/16/2015 2:16 PM FORENSIC MANAGER Height 175.3 cm (5' 9 ) 05/16/2015 2:16 PM FORENSIC MANAGER Body Mass Index 33.23 05/16/2015 2:16 PM FORENSIC MANAGER Plan of Treatment [place] [address] MEDICARE [facility] Care Teams Nut Packer Relationship Specialty Start Date End Date Mindy Walker MD [address] [place], [place] [id number] PCP - General 05/24/15
--- OUTSIDE RECORDS SUMMARY | 2024-05-19 17:58 | XMS_ITS | Clinical Summary ---
Author Organization [facility] [place] [address] Address [address] [place] [address] Care Team Providers Care Director Experimental Medicine Name Role Phone Mindy Walker MD Primary [...] route every day 0 0 6 Active sgbem-1p-yeo-epa -fish oil (OMEGA 3) 350-400 mg capsule [...] greater 05/16 Overview (07/20/2016): Obesity (BMI 30-39.9) Family History Medical History Relation Name Comments Heart attack Father 2 Myocardial infa rction; Cause of : Myocardial infarction Hypertension Father 2 Hypertension; Relation Name Status Comments Father 1 (Age 49) Father 2 Social History Tobacco Use Types Packs/Day Years Used Date Smoking Tobacco: Former Alcohol Use Standard Drinks/Week Comments Yes 0 (1 standard drink = 0.6 oz pur e alcohol) Personal Safety Answer Date Recorded Getting School Help Needed Not on file 06/27 Sex and Gender Information Value Date Recorded Sex Assigned at Not on file Legal Sex 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 Gender Identity Not on file Sexual Orientation Not on file Obstetrics History Last Filed Vital Signs Vital Sign Reading Time Taken Comments Blood Pressure 138/81 05/16/2015 2:16 PM INTERNATIONAL SALES MANAGER Pulse 74 05/16/2015 2:16 PM INTERNATIONAL SALES MANAGER Temperature - - Respiratory Rate - - Oxygen Saturation - - Inhaled Oxygen Concentration - - Weight 102.1 kg (225 lb) 05/16/2015 2:16 PM INTERNATIONAL SALES MANAGER Height 175.3 cm (5' 9 ) 05/16/2015 2:16 PM INTERNATIONAL SALES MANAGER Body Mass Index 33.23 05/16/2015 2:16 PM INTERNATIONAL SALES MANAGER Plan of Treatment Not on file Insurance MEDICARE [employer] Care Teams Director Experimental Medicine Relationship Specialty Start Date End Date Mindy Walker MD [address] [facility] [address] [place] [address] PCP - General 05/24/15
[2024-05-19 18:09] VITALS: BP 145/74; PULSE 84; RESP 18; TEMP 38.2; O2SAT 100
--- NOTE | 2024-05-19 18:34 | ED_ITS ---
HPI - General Adult General Chief complaint: Upper Respiratory Infection Stated complaint: lethargic Time Seen by Provider: 05/19/24 17:38 History of Present Illness HPI narrative: This is an 83-year-old male sent from the memory care unit for increased lethargy. The patient himself is A&O x1. He has no complaints. He does not know why he is in the emergency department. The care home says that he has been more lethargic than usual with decreased activity and increased confusion since this morning. 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 Fatty liver Arthritis Essential (primary) hypertension Mixed hyperlipidemia Surgical History Surgical History Hx of blepharoplasty History of total knee arthroplasty Family History Family History Father Hypertension Cerebrovascular accident Sibling Patient's sister is in good health Family history of lymphoma Social History Social History Social History: Smoking status: Never smoker Second hand tobacco smoke exposure: No Alcohol intake: current Alcohol use details: Occasionally Substance use: never Substance use type: does not use Living arrangements: alone Additional living arrangements comments: Occupation/Education: retired Gender identity (if verbalized by the patient): Male Sexual Orientation (if Verbalized by the Patient): Straight or Heterosexual Spiritual care concerns: No Exam 2 Narrative: APPEARANCE: No apparent distress. A&O x1 Head: atraumatic. EYES: EOMI, NOSE: Atraumatic NECK: Trachea midline RESPIRATORY: No increased rate of breathing CTAB CARDIOVASCULAR: RRR, no peripheral edema ABDOMINAL: Non-distended soft nontender MUSCULOSKELETAl: No obvious deformities NEURO: Alert. Moving 4/4 extremities SKIN:: Patient has a large erythematous fluctuant mass on his back consistent with abscess PSYCHIATRIC: Normal affect Course Vital Signs Vital signs: Vital Signs Temperature 100.7 F H 05/19/24 16:42 Pulse Rate 75 05/19/24 16:42 Respiratory Rate 23 H 05/19/24 16:42 Blood Pressure 131/68 05/19/24 16:42 Oxygen Delivery Room Air 05/19/24 16:42 Temperature 100.7 F H 05/19/24 18:09 Pulse Rate 78 05/19/24 19:24 Respiratory Rate 15 05/19/24 19:24 Blood Pressure 142/68 H 05/19/24 19:24 Pulse Oximetry 99 05/19/24 19:24 Oxygen Delivery Room Air 05/19/24 18:09 Procedures Abscess I/D back: Date of Incision: 05/19/24 Technique: incised with #11 blade and probed loculations Amount of fluid expressed (mL): 10 Irrigation: Yes Packing used?: none I&D Results: Pus and Blood Medical Decision Making MDM Narrative Medical decision making narrative: -Course: 83-year-old male presenting with increased lethargy from the care home. On arrival he was febrile. On physical exam he had a large subcutaneous abscess on his back that was incised and drained. Sepsis workup obtained which was positive for influenza. Lactic acid 2.6. Patient received 30 cc/kilogram bolus. Started on Tamiflu. Patient will be placed in observation for further management. -DDX includes but is not limited to: Sepsis UTI dehydration abscess pneumonia viral illness Vital Signs Vital Signs: Vital Signs Temperature 100.7 F H 05/19/24 16:42 Pulse Rate 75 05/19/24 16:42 Respiratory Rate 23 H 05/19/24 16:42 Blood Pressure 131/68 05/19/24 16:42 Oxygen Delivery Room Air 05/19/24 16:42 Temperature 100.7 F H 05/19/24 18:09 Pulse Rate 78 05/19/24 19:24 Respiratory Rate 15 05/19/24 19:24 Blood Pressure 142/68 H 05/19/24 19:24 Pulse Oximetry 99 05/19/24 19:24 Oxygen Delivery Room Air 05/19/24 18:09 Lab Data 05/19/24 18:36 05/19/24 18:36 Labs: Lab Results 0205/19/24 05/19/24 Range/Units 18:36 18:39 18:40 WBC 10.6 H (4.5-10.0) K/mm3 RBC 4.71 (4.6-6.20) M/mm3 Hgb 14.2 (14.0-18.0) g/dL Hct 44.1 (42.0-52.0) % MCV 93.6 (80-100) fl MCH 30.1 (26-34) pg MCHC 32.2 (32-36) g/dl RDW 13.1 (11.5-14.5) % Plt Count 180 (150-375) k/mm3 MPV 9.3 (7.4-10.4) fl Immature Gran % (Auto) Not Reportable Neut % (Auto) Not Reportable Lymph % (Auto) Not Reportable [place] % (Auto) Not Reportable Eos % (Auto) Not Reportable Baso % (Auto) Not Reportable Lymph # (Auto) Not Reportable [place] # (Auto) Not Reportable Eos # (Auto) Not Reportable Baso # (Auto) Not Reportable Abs Immat Gran (auto) Not Reportable Absolute Neuts (auto) Not Reportable Absolute Nucleated RBC Not Reportable Total Counted 100 Neutrophils % (Manual) 80 H (46-73) % Band Neutrophils % 10 H (0-6) % Lymphocytes % (Manual) 4.0 L (18-44) % Monocytes % (Manual) 5 (3-9) % Basophils % (Manual) 1 (0-1) % Nucleated RBC % Not Reportable Abs Neuts (Manual) 9.54 H (1.3-6.7) K/mm3 Abs Lymphs (Manual) 0.42 L (1.1-4.5) K/mm3 Abs Monocytes (Manual) 0.53 (0.1-0.90) K/mm3 Abs Basophils (Manual) 0.10 (0.0-0.1) K/mm3 Platelet Estimate Adequate (Adequate) Schistocytes None seen PT 14.9 H (11.1-14.7) Seconds INR 1.1 APTT 31.3 (22.3-36.8) Seconds Sodium 140 (137-145) mmol/L Potassium 3.8 (3.4-5.0) mmol/L Chloride 102 (98-107) mmol/L Carbon Dioxide 24 (22-30) mmol/L Anion Gap 14 H (4-12) mmol/L BUN 17 (9-20) mg/dL Creatinine 1.03 (0.7-1.3) mg/dL Estim Creat Clear Calc 55 ml/min Estimated GFR > 60 (59 - ) Glucose 99 (65-110) mg/dL Lactic Acid 2.6 H (0.7-2.0) mmol/L Calcium 9.2 (8.4-10.2) mg/dL Phosphorus 3.1 (2.5-4.5) mg/dL Magnesium 2.0 (1.6-2.3) mg/dL Total Bilirubin 0.9 (0.2-1.3) mg/dL AST 48 (17-59) U/L ALT 41 (6-50) U/L Alkaline Phosphatase 80 (38-126) U/L Total Protein 7.0 (6.3-8.2) g/dL Albumin 4.2 (3.5-5.1) g/dL Lipase 164 (23-300) U/L TSH (Reflex) 0.490 (0.465-4.68) uIU/mL Urine Color Yellow (Yellow) Urine Appearance Clear (Clear) Urine pH 5.5 (5.0-9.0) Ur Specific [place] 1.022 (1.001-1.035) Urine Protein 1+ H (Negative) mg/dL Urine Glucose (UA) Negative (Negative) mg/dL Urine Ketones Trace H (Negative) mg/dL Ur Blood (Man) 1+ H (Negative) Urine Nitrate Negative (Negative) Urine Bilirubin Negative (Negative) Urine Urobilinogen 1.0 (<2.0) mg/dL Leukocyte Esterase Rfl Negative (Negative) NIR/UL Urine RBC 11-20 H (0-2) /hpf Urine WBC 0-5 (0-3) /hpf Ur Squamous Epith Cells None seen (Few) /hpf Urine Bacteria None seen /hpf Urine Casts 3-5 Urine Opiates Screen Negative (Negative) Urine Methadone Screen Negative (Negative) Ur Barbiturates Screen Negative (Negative) Ur Phencyclidine Scrn Negative (Negative) Ur Amphetamine Screen Negative (Negative) U Benzodiazepines Scrn Negative (Negative) Urine Cocaine Screen Negative (Negative) U Cannabinoids Screen Negative (Negative) Ethyl Alcohol < 10 (<10) mg/dL Influenza A (RT-PCR) Positive A (Negative) Influenza B (RT-PCR) Negative (Negative) RSV (RT-PCR) Negative (Negative) SARS-CoV-2 RNA (RT-PCR) Negative (Negative) ABG Data ABG results: 05/19/24 18:28 Puncture Site Right radial ABG pH 7.462 H ABG pCO2 34.5 L ABG pO2 56.2 L ABG PO2/FiO2 Ratio 2.68 ABG HCO3 24.1 ABG O2 Saturation 91.1 L ABG O2 Content 17.7 ABG Base Excess 0.8 A-a Gradient 52.2 Oxyhemoglobin 89.9 L Total Hemoglobin 14.0 O2 Delivery Device Room air O2 Liters/Min Not Reportable FiO2 21 Discharge Plan Discharge Clinical Impression: Influenza, Abscess Patient Disposition: Still a Patient Condition: Stable Patient Language: [place] Prescriptions: No Action prednisolone acetate 1 % drops,suspension 1 drp RIGHT EYE Q2H Rx Instructions: instill 1 drp into right eye q2hr for 7 days, started on 08/11 memantine [Namenda Titration Vince] 5-10 mg tablets,dose pack See Rx Instructions PO PER PKG DIR Qty: 49 0RF Rx Instructions: PO PER PKG DIR atorvastatin 40 mg tablet 40 mg PO DAILY Qty: 90 1RF atropine 1 % drops 1 drp RIGHT EYE BID Qty: 15 0RF donepezil [Aricept] 23 mg tablet 23 mg PO DAILY Qty: 90 3RF hydrochlorothiazide 12.5 mg capsule 12.5 mg PO DAILY Qty: 90 1RF losartan 100 mg tablet 100 mg PO DAILY Qty: 90 1RF tamsulosin 0.4 mg capsule 0.4 mg PO DAILY Qty: 90 1RF latanoprost 0.005 % drops 1 drp EACH EYE QPM Qty: 7.5 0RF amlodipine 10 mg tablet See Rx Instructions .ROUTE .COMPLEX Qty: 90 1RF Dose Instruction: 1 TAB BY MOUTH AT BEDTIME Rx Instructions: 1 TAB BY MOUTH AT BEDTIME Follow-up/Referrals: Aaron,Mindy Perea MD [Primary Care Provider] -
[2024-05-19 18:42] LABS: Alveolar/Arterial O2 Gradient 52.2 mmHg; Base Excess ABG 0.8 mEq/l (+/-2.0); Fractional Inspired Oxygen 21 %; HCO3 ABG 24.1 mEq/l (22.0-26.0); Oxygen Content ABG 17.7 %vol (16.0-22.0); Oxygen Saturation ABG 91.1 % (95.0-100.0); Oxyhemoglobin 89.9 % THb (90.0-100.0); PCO2 ABG 34.5 mmHg (35.0-45.0); PO2 ABG 56.2 mmHg (80.0-100.0); PO2 FiO2 Ratio Arterial Blood 2.68 %; pH ABG 7.462 (7.350-7.450)
[2024-05-19 18:43] LABS: Site Drawn RIGHT RADIAL
[2024-05-19 18:44] LABS: Device ROOM AIR; Modified Allen's Test Pass
[2024-05-19 18:46] LABS: Hematocrit 44.1 % (42.0-52.0); Hemoglobin 14.2 g/dL (14.0-18.0); Mean Corpuscular HGB Conc 32.2 g/dl (32-36); Mean Corpuscular Hemoglobin 30.1 pg (26-34); Mean Corpuscular Volume 93.6 fl (80-100); Mean Platelet Volume 9.3 fl (7.4-10.4); Platelet Count Result 180 k/mm3 (150-375); Red Blood Count 4.71 M/mm3 (4.6-6.20); Red Cell Distribution Width 13.1 % (11.5-14.5); White Blood Count 10.6 K/mm3 (4.5-10.0)
[2024-05-19 18:54] LABS: Ethanol < 10 mg/dL (<10)
[2024-05-19 18:55] LABS: Lactic Acid Reflex 2.6 mmol/L (0.7-2.0)
[2024-05-19 18:55] LABS: Add Urine Microscopic? YES; Appearance Urine Clear (Clear); Bacteria Urine None Seen /hpf; Bilirubin Urine Negative (Negative); Blood Urine 1+ (Negative); Color Urine Yellow (Yellow); Glucose Urine UA Negative (Negative); Ketones Urine Trace mg/dL (Negative); Leukocyte Esterase Ur Negative LEU/UL (Negative); Nitrate Urine Negative (Negative); Protein Urine 1+ mg/dL (Negative); Specific Grav Ur 1.022 (1.001-1.035); Squamous Epithelial Cell Urine None Seen /hpf (Few); WBC Urine 0-5 /hpf (0-3); pH Urine 5.5 (5.0-9.0)
[2024-05-19] MEDS: SODIUM CHLORIDE 0.9% IV 700 ML 999 ML IV CONT (18:59)
[2024-05-19] MEDS: SODIUM CHLORIDE 0.9% IV 1,000 ML 999 ML IV CONT ×2 (18:59)
[2024-05-19 19:02] LABS: INR 1.1; Prothrombin Time 14.9 Seconds (11.1-14.7)
[2024-05-19] MEDS: ACETAMINOPHEN 500 MG TABLET 1000 MG PO (19:02)
[2024-05-19 19:03] LABS: Partial Thromboplastin Time 31.3 Seconds (22.3-36.8)
[2024-05-19 19:10] LABS: Alanine Aminotransferase 41 U/L (6-50); Albumin Level 4.2 g/dL (3.5-5.1); Alkaline Phosphatase 80 U/L (38-126); Anion Gap 14 mmol/L (4-12); Aspartate Amino Transferase 48 U/L (17-59); Bilirubin,Total 0.9 mg/dL (0.2-1.3); Blood Urea Nitrogen 17 mg/dL (9-20); Calcium 9.2 mg/dL (8.4-10.2); Carbon Dioxide 24 mmol/L (22-30); Chloride 102 mmol/L (98-107); Estimated CRCL calculation 55 ml/min; Estimated Glomerular Filt Rate > 60; Glucose 99 mg/dL (65-110); Lipase 164 U/L (23-300); Phosphorus 3.1 mg/dL (2.5-4.5); Potassium 3.8 mmol/L (3.4-5.0); Sodium 140 mmol/L (137-145)
[2024-05-19 19:14] LABS: Band Neutrophils Percent 10 % (0-6); Basophils Percent Manual 1 % (0-1); Lymphocytes Absolute Manual 0.42 K/mm3 (1.1-4.5); Monocytes Absolute Manual 0.53 K/mm3 (0.1-0.90); Monocytes Percent Manual 5 % (3-9); Neutrophils Absolute Manual 9.54 K/mm3 (1.3-6.7); Neutrophils Percent Manual 80 % (46-73); Platelet Estimate Adequate (Adequate); Total Cells Counted 100
[2024-05-19 19:15] LABS: Schistocytes None Seen
[2024-05-19 19:22] LABS: Influenza A QL RT-PCR Positive (Negative); Influenza B QL RT-PCR Negative (Negative); RSV RNA, RT-PCR Negative (Negative); SARS-CoV-2 RNA PCR Negative (Negative)
[2024-05-19 19:24] VITALS: BP 142/68; PULSE 78; RESP 15; O2SAT 99
[2024-05-19 19:29] LABS: Amphetamine Screen Urine Negative (Negative); Barbiturate Screen Urine Negative (Negative); Benzodiazepines Screen Urine Negative (Negative); Cannabinoid Screen Urine Negative (Negative); Cocaine Screen Urine Negative (Negative); Methadone Screen Urine Negative (Negative); Opiate Screen Urine Negative (Negative); Phencyclidine Screen Urine Negative (Negative)
[2024-05-19 21:41] LABS: Reflex Lactic Acid Yes or No Add Lactic
[2024-05-19 22:36] LABS: Lactic Acid 0.9 mmol/L (0.7-2.0)
[2024-05-19 22:40] VITALS: BP 111/48; PULSE 66; RESP 22; O2SAT 94
--- NOTE | 2024-05-19 22:43 | P.HP_ITS ---
H&P: HPI History of Present Illness Date/Time: 05/19/24 22:43 Chief Complaint: Decreased activity Narrative: 83-year-old male with past medical history of dementia, essential hypertension, glaucoma, hepatic steatosis and glaucoma who presented to the ER from [facility] due to lethargy and increased confusion. The entirety of the HPI was obtained from review of past medical records, EMS report and ER physician reported as patient is only alert orient x1. Patient is usually alert orient x2 per retirement staff. The patient's only complaint was feeling tired. Patient's temperature in route to the ER was 100.6. The patient cannot provide any meaningful review of systems he has no complaints at the time of my evaluation. He is oriented to person and the fact that he is in a hospital. Review of Systems 2 Review of Systems: Unable to obtain due to patient's history of dementia [facility] Past Medical History Medical History (Updated 05/19/24 @ 22:56 by Cyndee Davis DO) Alcohol abuse Vitamin D deficiency Dementia BPH (benign prostatic hyperplasia) Hepatic steatosis Glaucoma (increased eye pressure) Corneal dystrophy Lead exposure Arthritis Essential (primary) hypertension Mixed hyperlipidemia Surgical History Surgical History (Updated 05/20/24 @ 07:47 by Cyndee Davis DO) Status post cataract extraction of both eyes with insertion of intraocular lens Hx of blepharoplasty History of total knee arthroplasty Family History Family History Father Hypertension Cerebrovascular accident Sibling Patient's sister is in good health Family history of lymphoma Social History Social History (Updated 05/19/24 @ 22:54 by Cyndee Davis DO) Social History: He is and resides at [facility]. Code status: DNR/DNI Healthcare power of deputy attorney general: Kana Grimes Years smoked: 20 Smoking status: Former smoker Tobacco type: cigarettes Second hand tobacco smoke exposure: No Alcohol intake: never Alcohol use details: Occasionally Substance use: never Substance use type: does not use Do You Feel Safe in your Home?: Yes Lack of Transportation: No Lack of Food: Never True Current Housing: I Have Housing Concerned About Future Housing: No Difficulty Paying Gas/Electric Bills: No Difficulty Paying for Meds: No Currently Unemployed: No Education: Don't Know Difficulty w/ Childcare or Family Care: No Living arrangements: alone Additional living arrangements comments: Occupation/Education: retired Gender identity (if verbalized by the patient): Male Sexual Orientation (if Verbalized by the Patient): Straight or Heterosexual Spiritual care concerns: No Meds Home Medications and Allergies Home Medications ?Medication ?Instructions ?Recorded ?Confirmed ?Type atropine 1 % eye drops 1 drp RIGHT EYE BID #15 mL 08/28/21 05/20/24 Rx losartan 100 mg tablet 100 mg PO DAILY #90 tabs 08/28/21 05/20/24 Rx tamsulosin 0.4 mg capsule 0.4 mg PO DAILY #90 caps 08/28/21 05/20/24 Rx latanoprost 0.005 % eye drops 1 drp ophthalmic (eye) QPM #7.5 mL 12/05/21 05/20/24 Rx amlodipine 5 mg tablet 5 mg PO .qam 05/20/24 05/20/24 History atorvastatin 40 mg tablet 40 mg PO QHS 05/20/24 05/20/24 History citalopram 10 mg tablet 10 mg PO DAILY 05/20/24 05/20/24 History divalproex 125 mg tablet,delayed 125 mg PO BID 05/20/24 05/20/24 History release divalproex 250 mg tablet,delayed 250 mg PO DAILY@1200 05/20/24 05/20/24 History release donepezil 23 mg tablet (Aricept) 23 mg PO QHS 05/20/24 05/20/24 History memantine 10 mg tablet 10 mg PO .q12hr 05/20/24 05/20/24 History multivitamin with folic acid 400 1 tablet PO DAILY 05/20/24 05/20/24 History mcg tablet (Tab-A-Luis) ramelteon 8 mg tablet 8 mg PO HS 05/20/24 05/20/24 History Allergies Allergy/AdvReac Type Severity Reaction Status Date / Time No Known Allergies Allergy Verified 05/20/24 02:47 Vital Signs Vital Signs - 24 hr 05/19/24 16:42 05/19/24 16:46 05/19/24 16:47 Temperature 100.7 F H 100.7 F H Pulse Rate 75 74 Respiratory Rate 23 H 21 H Blood Pressure 131/68 132/67 Pulse Oximetry 94 95 Oxygen Delivery Room Air Room Air 05/19/24 18:09 05/19/24 19:24 Temperature 100.7 F H Pulse Rate 84 78 Respiratory Rate 18 15 Blood Pressure 145/74 H 142/68 H Pulse Oximetry 100 99 Oxygen Delivery Room Air Exam 2 Narrative: Weight 87 kg BMI 28.3 Const: Other: No acute distress, well-developed well-nourished, appears stated age HENMT: Other: Head is normocephalic atraumatic, mucous membranes are tacky, no oral pharyngeal erythema Eyes: Other: Pupils are equal and reactive, no scleral icterus, no conjunctival pallor Neck: Other: No JVD, no lymphadenopathy Resp: Other: End-expiratory wheezing, no increased work of breathing GI: Other: Soft, nontender, nondistended, positive bowel Skin: Other: No jaundice, no pallor Neuro: Other: Alert oriented person place, speech is clear, no facial asymmetry Extrem: Other: No clubbing, cyanosis or edema Psych: Other: Pleasantly confused, cooperative, poor judgment and insight H&P: Results Labs Labs: Laboratory Tests 05/19/24 18:36 05/19/24 18:36 05/19/24 05/19/24 05/19/24 18:28 18:36 18:39 WBC 10.6 H RBC 4.71 Hgb 14.2 Hct 44.1 MCV 93.6 MCH 30.1 MCHC 32.2 RDW 13.1 Plt Count 180 MPV 9.3 Immature Gran % (Auto) Not Reportable Neut % (Auto) Not Reportable Lymph % (Auto) Not Reportable [place] % (Auto) Not Reportable Eos % (Auto) Not Reportable Baso % (Auto) Not Reportable Lymph # (Auto) Not Reportable [place] # (Auto) Not Reportable Eos # (Auto) Not Reportable Baso # (Auto) Not Reportable Abs Immat Gran (auto) Not Reportable Absolute Neuts (auto) Not Reportable Absolute Nucleated RBC Not Reportable Total Counted 100 Neutrophils % (Manual) 80 H Band Neutrophils % 10 H Lymphocytes % (Manual) 4.0 L Monocytes % (Manual) 5 Basophils % (Manual) 1 Nucleated RBC % Not Reportable Abs Neuts (Manual) 9.54 H Abs Lymphs (Manual) 0.42 L Abs Monocytes (Manual) 0.53 Abs Basophils (Manual) 0.10 Platelet Estimate Adequate Schistocytes None seen PT 14.9 H INR 1.1 APTT 31.3 Puncture Site Right radial ABG pH 7.462 H ABG pCO2 34.5 L ABG pO2 56.2 L ABG PO2/FiO2 Ratio 2.68 ABG HCO3 24.1 ABG O2 Saturation 91.1 L ABG O2 Content 17.7 ABG Base Excess 0.8 A-a Gradient 52.2 Oxyhemoglobin 89.9 L Total Hemoglobin 14.0 O2 Delivery Device Room air O2 Liters/Min Not Reportable FiO2 21 Sodium 140 Potassium 3.8 Chloride 102 Carbon Dioxide 24 Anion Gap 14 H BUN 17 Creatinine 1.03 Estim Creat Clear Calc 55 Estimated GFR > 60 Glucose 99 Lactic Acid 2.6 H Calcium 9.2 Phosphorus 3.1 Magnesium 2.0 Total Bilirubin 0.9 AST 48 ALT 41 Alkaline Phosphatase 80 Total Protein 7.0 Albumin 4.2 Lipase 164 TSH (Reflex) 0.490 Urine Color Urine Appearance Urine pH Ur Specific [place] Urine Protein Urine Glucose (UA) Urine Ketones Ur Blood (Man) Urine Nitrate Urine Bilirubin Urine Urobilinogen Leukocyte Esterase Rfl Urine RBC Urine WBC Ur Squamous Epith Cells Urine Bacteria Urine Casts Urine Opiates Screen Urine Methadone Screen Ur Barbiturates Screen Ur Phencyclidine Scrn Ur Amphetamine Screen U Benzodiazepines Scrn Urine Cocaine Screen U Cannabinoids Screen Ethyl Alcohol < 10 Influenza A (RT-PCR) Positive A Influenza B (RT-PCR) Negative RSV (RT-PCR) Negative SARS-CoV-2 RNA (RT-PCR) Negative 05/19/24 05/19/24 18:40 22:16 WBC RBC Hgb Hct MCV MCH MCHC RDW Plt Count MPV Immature Gran % (Auto) Neut % (Auto) Lymph % (Auto) [place] % (Auto) Eos % (Auto) Baso % (Auto) Lymph # (Auto) [place] # (Auto) Eos # (Auto) Baso # (Auto) Abs Immat Gran (auto) Absolute Neuts (auto) Absolute Nucleated RBC Total Counted Neutrophils % (Manual) Band Neutrophils % Lymphocytes % (Manual) Monocytes % (Manual) Basophils % (Manual) Nucleated RBC % Abs Neuts (Manual) Abs Lymphs (Manual) Abs Monocytes (Manual) Abs Basophils (Manual) Platelet Estimate Schistocytes PT INR APTT Puncture Site ABG pH ABG pCO2 ABG pO2 ABG PO2/FiO2 Ratio ABG HCO3 ABG O2 Saturation ABG O2 Content ABG Base Excess A-a Gradient Oxyhemoglobin Total Hemoglobin O2 Delivery Device O2 Liters/Min FiO2 Sodium Potassium Chloride Carbon Dioxide Anion Gap BUN Creatinine Estim Creat Clear Calc Estimated GFR Glucose Lactic Acid 0.9 Calcium Phosphorus Magnesium Total Bilirubin AST ALT Alkaline Phosphatase Total Protein Albumin Lipase TSH (Reflex) Urine Color Yellow Urine Appearance Clear Urine pH 5.5 Ur Specific [place] 1.022 Urine Protein 1+ H Urine Glucose (UA) Negative Urine Ketones Trace H Ur Blood (Man) 1+ H Urine Nitrate Negative Urine Bilirubin Negative Urine Urobilinogen 1.0 Leukocyte Esterase Rfl Negative Urine RBC 11-20 H Urine WBC 0-5 Ur Squamous Epith Cells None seen Urine Bacteria None seen Urine Casts 3-5 Urine Opiates Screen Negative Urine Methadone Screen Negative Ur Barbiturates Screen Negative Ur Phencyclidine Scrn Negative Ur Amphetamine Screen Negative U Benzodiazepines Scrn Negative Urine Cocaine Screen Negative U Cannabinoids Screen Negative Ethyl Alcohol Influenza A (RT-PCR) Influenza B (RT-PCR) RSV (RT-PCR) SARS-CoV-2 RNA (RT-PCR) Impressions Head CT 05/19/24 18:03 Impression: No acute intracranial hemorrhage or suspicious mass effect. Chest X-Ray 05/19/24 18:12 IMPRESSION: Mild pulmonary vascular congestion, without focal infiltrate or effusion. EKG: Normal sinus rhythm rate of 70 QTC 425 left axis deviation, right bundle-branch block. Cardiology interpretation pending All imaging and EKGs personally reviewed and interpreted. And unless stated otherwise agree with radiologic and cardiology interpretation. Assessment and Plan Assessment and plan (1) Influenza A: Code(s): J10.1 - Influenza due to other identified influenza virus with other respiratory manifestations Status: Acute (2) Abscess: Code(s): L02.91 - Cutaneous abscess, unspecified Status: Acute (3) Dementia: Qualifiers: Alzheimer's disease onset: late onset Dementia behavioral or psychological symptom: unspecified whether behavioral, psychotic, or mood disturbance or anxiety Dementia severity: severe Dementia type: Alzheimer's Q ualified Code(s): G30.1 - Alzheimer's disease with late onset; F02.C0 - Dementia in other diseases classified elsewhere, severe, without behavioral disturbance, psychotic disturbance, mood disturbance, and anxiety Code(s): F03.90 - Unspecified dementia, unspecified severity, without behavioral disturbance, psychotic disturbance, mood disturbance, and anxiety Status: Acute (4) Essential (primary) hypertension: Code(s): I10 - Essential (primary) hypertension Status: Acute Plan The patient presented with lethargy and fever had some bandemia with a minimal elevation in white count. The patient had to sources of infection with influenza a and an abscess to his back. Abscess on his back was locally incised and drained by ER provider. No surrounding cellulitis noted. Patient was not started on antibiotics as localized incision and drainage should be adequate. However blood cultures have been obtained and are pending. Patient has been started on Tamiflu. The patient did have some ketones in his urine in appeared intervascular volume depleted. He received adequate IV fluid hydration in the ER with a total of 2.7 L of fluid bolus. Will give 1 more L of IV fluids at 100 mL an hour and then re-evaluate fluid status. Patient's blood pressures remain normotensive. Will resume patient's home antihypertensive medications. Will provide supportive care needed with Tylenol. Patient does appear intravascularly volume Will check repeat CBC and electrolyte panel in a.m. patient will need localized wound care to abscess on his back. Will review patient's home medications and reconcile once med rec has been verified. Quality VTE Prophylaxis VTE prophylaxis: pharmacologic ordered (Lovenox 40 mg subQ daily) Hospitalist [facility] Advance Care Plan I have confirmed that the patient's Advanced Care Plan is present, code status is documented, or surrogate decision maker is listed in patient medical record.: Yes Medication Reconciliation I have utilized all available resources to obtain, update and review the patients current medications (includes all prescriptions, OTC, herbals, cannabis, and nutritional supplements).: Yes
[2024-05-20] MEDS: OSELTAMIVIR PHOSPHATE 30 MG CAPSULE PO ×3 (00:23→19:53)
[2024-05-20] MEDS: SODIUM CHLORIDE 0.9% IV 1,000 ML 100 ML IV CONT (00:24)
[2024-05-20 01:10] VITALS: BP 120/80; PULSE 68; RESP 15; O2SAT 96
--- NOTE | 2024-05-20 01:40 | ADMGEN ---
This patient, Enmanuel Kelly, was admitted to [address] [place] [address] Room 305-02 at 01:40. Patient/family oriented to hospital policies and general routines including ID bracelet, bed and alarms, visiting hours, pain management, procedures, bathroom and other care routines, personal items, smoking policy, room service/diet, and visiting hours. Information on how to activate the Rapid Response Team has been discussed. Patient/Family are encouraged to report perceived risks to care and to ask questions if they do not understand what they are told or what they should do.
[2024-05-20 01:47] VITALS: O2SAT 96; BMI 28.3
[2024-05-20 02:18] VITALS: BP 137/70; PULSE 66; RESP 20; TEMP 37.2; O2SAT 94
[2024-05-20 05:14] VITALS: BP 155/67; PULSE 73; RESP 16; TEMP 37.2; O2SAT 92
[2024-05-20 07:10] LABS: Basophils Absolute Auto 0.1 K/mm3 (0.0-0.1); Basophils Percent Auto 0.5 % (0.2-1.2); Eosinophils Percent Auto 0.2 % (0-4.4); Hematocrit 41.4 % (42.0-52.0); Hemoglobin 13.4 g/dL (14.0-18.0); Immature Granulocyte Absolute 0.04 K/mm3 (0.00-0.031); Immature Granulocyte Percent A 0.4 % (0-0.5); Lymphocytes Absolute Auto 0.85 K/mm3 (0.9-3.2); Mean Corpuscular HGB Conc 32.4 g/dl (32-36); Mean Corpuscular Hemoglobin 30.5 pg (26-34); Mean Corpuscular Volume 94.1 fl (80-100); Monocytes Percent Auto 10.8 % (2.6-8.5); Neutrophils Absolute Auto 7.5 K/mm3 (1.3-6.7); Neutrophils Percent Auto 79.1 % (45.5-73.1); Platelet Count Result 163 k/mm3 (150-375); Red Cell Distribution Width 13.1 % (11.5-14.5); White Blood Count 9.4 K/mm3 (4.5-10.0)
[2024-05-20 07:26] LABS: Anion Gap 12 mmol/L (4-12); Blood Urea Nitrogen 13 mg/dL (9-20); Calcium 8.5 mg/dL (8.4-10.2); Carbon Dioxide 25 mmol/L (22-30); Chloride 105 mmol/L (98-107); Estimated CRCL calculation 59 ml/min; Estimated Glomerular Filt Rate > 60; Glucose 77 mg/dL (65-110); Potassium 3.6 mmol/L (3.4-5.0); Sodium 142 mmol/L (137-145)
--- NOTE | 2024-05-20 09:17 | P.PNIM_ITS ---
Progress Note: A&P Assessment and Plan (1) Influenza A: Code(s): J10.1 - Influenza due to other identified influenza virus with other respiratory manifestations Status: Acute Assessment and Plan: * Respiratory panel positive for influenza A * Continue Tamiflu * Chest x-ray showed mild pulmonary vascular congestion without focal infiltrate or effusion * Continue guaifenesin * Will start prednisone 40 mg daily * Pep therapy and incentive spirometry ordered * Will obtain echocardiogram (2) Abscess: Code(s): L02.91 - Cutaneous abscess, unspecified Status: Acute Assessment and Plan: * Patient had abscess on his back, I&D while in the ED * Wound nurse consult * Bandemia noted * Blood cultures obtained and pending * Patient was not treated with antibiotics while in the ED or when admitted * Will treat with vancomycin for now (3) Dementia: Qualifiers: Alzheimer's disease onset: late onset Dementia behavioral or psychological symptom: unspecified whether behavioral, psychotic, or mood disturbance or anxiety Dementia severity: severe Dementia type: Alzheimer's Qualified Code(s): G30.1 - Alzheimer's disease with late onset; F02.C0 - Dementia in other diseases classified elsewhere, severe, without behavioral disturbance, psychotic disturbance, mood disturbance, and anxiety Code(s): F03.90 - Unspecified dementia, unspecified severity, without behavioral disturbance, psychotic disturbance, mood disturbance, and anxiety Status: Acute Assessment and Plan: * Continue Namenda * Head CT was negative for any acute intracranial hemorrhage or suspicious mass- effect, shown decreased attenuation within periventricular white matter secondary to microvascular ischemic disease (4) Essential (primary) hypertension: Code(s): I10 - Essential (primary) hypertension Status: Acute Assessment and Plan: * Blood pressure ranging 137/70 to 155/67 * Continue amlodipine Time Spent With Patient Time with patient: 25 - 35 minutes Subjective Date/time seen: 05/20/24 09:17 Interval history: Interval history: This is an 83-year-old male with a significant past medical history of dementia, hypertension, glaucoma, hepatic steatosis, who presented to the hospital with in decreased lethargy and increased confusion from his memory care center. Workup in the hospital included a right knee x-ray which did not show any acute osseous findings. Head CT was negative for any acute intracranial hemorrhage or suspicious mass-effect. Chest x-ray showed mild pulmonary vascular congestion without focal infiltrate or effusion. Initial labs showed a white blood cell count of 10.6, band neutrophils 10, anion gap 14, lactic acid 2.6> 0.9. UA was obtained which showed 1+ urine protein, trace urine ketone, 1+ urine blood, 11- 20 urine RBC. Urine drug screen was negative. Respiratory panel was positive for influenza A. Blood cultures were obtained and pending. EKG showed sinus rhythm with a right bundle branch block, left anterior fascicular block, with a rate of 70, QTC 425. Patient was given 2.5 L normal saline, Tamiflu and was started on IV fluids at 100 mL/hour while in the ED. Subjective: Patient is only oriented x1. Patient's baseline orientation is alert and oriented times 1-2. He is from memory care. He is currently on room air. Labs and imaging reviewed. Review of Systems Review of Systems: Unable to obtain due to patient's history of dementia Exam Narrative: General: In no acute distress, well nourished Head: atraumatic, no encephalopathy Eyes: PERRLA, sclera clear ENT: moist mucous membranes, nasal passages clear Neck: supple, no JVD, no adenopathy, trachea midline Cardiac: Normal S1 and S2. mild murmur, No gallops or friction rubs, peripheral pulses intact. Respiratory: Currently wheezing with rhonchi throughout all lung amezcua bilaterally, he does not appear to be in any acute respiratory distress or use of accessory muscles to breathe. Currently on room air. Gastrointestinal: soft, non-distended, non-tender, normoactive bowel sounds. : voiding without difficulty. Extremities: moves all extremities well, no edema Skin: clean, dry, intact. No wounds or lesions. Neuro: Alert and oriented x1, cranial nerves intact, no neuro deficits. Psych: normal mood, normal affect, interactive Objective Data Vital Signs Vital Signs: Vital Signs - 24 hr 05/19/24 16:42 05/19/24 16:46 05/19/24 16:47 Temperature 100.7 F H 100.7 F H Pulse Rate 75 74 Respiratory Rate 23 H 21 H Blood Pressure 131/68 132/67 Pulse Oximetry 94 95 Oxygen Delivery Room Air Room Air 05/19/24 18:09 05/19/24 19:24 05/19/24 22:40 Temperature 100.7 F H Pulse Rate 84 78 66 Respiratory Rate 18 15 22 H Blood Pressure 145/74 H 142/68 H 111/48 L Pulse Oximetry 100 99 94 Oxygen Delivery Room Air 05/20/24 01:10 05/20/24 01:47 05/20/24 02:18 Temperature 98.9 F Pulse Rate 68 66 Respiratory Rate 15 20 Blood Pressure 120/80 137/70 Pulse Oximetry 96 96 94 Oxygen Delivery Room Air 05/20/24 05:14 Temperature 98.9 F Pulse Rate 73 Respiratory Rate 16 Blood Pressure 155/67 H Pulse Oximetry 92 Oxygen Delivery Intake/Output Intake/Output: Intake & Output 05/17/24 05/18/24 05/19/24 05/20/24 23:59 23:59 23:59 23:59 Intake Total 2700 Output Total 300 Balance 2700 -300 Meds/Results Medications: Active Medications Generic Name Dose Route Start Last Admin Trade Name Freq PRN Reason Stop Dose Admin Acetaminophen 650 mg 05/19/24 23:00 Acetaminophen 325 Mg Tablet PO Q4H PRN Mild Pain (1-3) or Fever Enoxaparin Sodium 40 mg 05/20/24 09:00 Enoxaparin 40 Mg/0.4 Ml Syringe SUB-Q DAILY TOMMY Oseltamivir Phosphate 30 mg 05/19/24 22:05 05/20/24 00:23 Oseltamivir Phosphate 30 Mg Capsule PO 05/24/24 22:04 30 mg Q12HR TOMMY Administration Radiology Results: ITS Impressions Head CT 05/19/24 18:03 Impression: No acute intracranial hemorrhage or suspicious mass effect. Chest X-Ray 05/19/24 18:12 IMPRESSION: Mild pulmonary vascular congestion, without focal infiltrate or effusion. Labs Labs: Laboratory Results - last 24 hr 05/19/24 05/19/24 05/19/24 18:28 18:36 18:39 WBC 10.6 H RBC 4.71 Hgb 14.2 Hct 44.1 MCV 93.6 MCH 30.1 MCHC 32.2 RDW 13.1 Plt Count 180 MPV 9.3 Immature Gran % (Auto) Not Reportable Neut % (Auto) Not Reportable Lymph % (Auto) Not Reportable [place] % (Auto) Not Reportable Eos % (Auto) Not Reportable Baso % (Auto) Not Reportable Lymph # (Auto) Not Reportable [place] # (Auto) Not Reportable Eos # (Auto) Not Reportable Baso # (Auto) Not Reportable Abs Immat Gran (auto) Not Reportable Absolute Neuts (auto) Not Reportable Absolute Nucleated RBC Not Reportable Total Counted 100 Neutrophils % (Manual) 80 H Band Neutrophils % 10 H Lymphocytes % (Manual) 4.0 L Monocytes % (Manual) 5 Basophils % (Manual) 1 Nucleated RBC % Not Reportable Abs Neuts (Manual) 9.54 H Abs Lymphs (Manual) 0.42 L Abs Monocytes (Manual) 0.53 Abs Basophils (Manual) 0.10 Platelet Estimate Adequate Schistocytes None seen PT 14.9 H INR 1.1 APTT 31.3 Puncture Site Right radial ABG pH 7.462 H ABG pCO2 34.5 L ABG pO2 56.2 L ABG PO2/FiO2 Ratio 2.68 ABG HCO3 24.1 ABG O2 Saturation 91.1 L ABG O2 Content 17.7 ABG Base Excess 0.8 A-a Gradient 52.2 Oxyhemoglobin 89.9 L Total Hemoglobin 14.0 O2 Delivery Device Room air O2 Liters/Min Not Reportable FiO2 21 Sodium 140 Potassium 3.8 Chloride 102 Carbon Dioxide 24 Anion Gap 14 H BUN 17 Creatinine 1.03 Estim Creat Clear Calc 55 Estimated GFR > 60 Glucose 99 Lactic Acid 2.6 H Calcium 9.2 Phosphorus 3.1 Magnesium 2.0 Total Bilirubin 0.9 AST 48 ALT 41 Alkaline Phosphatase 80 Total Protein 7.0 Albumin 4.2 Lipase 164 TSH (Reflex) 0.490 Urine Color Urine Appearance Urine pH Ur Specific [place] Urine Protein Urine Glucose (UA) Urine Ketones Ur Blood (Man) Urine Nitrate Urine Bilirubin Urine Urobilinogen Leukocyte Esterase Rfl Urine RBC Urine WBC Ur Squamous Epith Cells Urine Bacteria Urine Casts Urine Opiates Screen Urine Methadone Screen Ur Barbiturates Screen Ur Phencyclidine Scrn Ur Amphetamine Screen U Benzodiazepines Scrn Urine Cocaine Screen U Cannabinoids Screen Ethyl Alcohol < 10 Influenza A (RT-PCR) Positive A Influenza B (RT-PCR) Negative RSV (RT-PCR) Negative SARS-CoV-2 RNA (RT-PCR) Negative 05/19/24 05/19/24 05/20/24 18:40 22:16 06:03 WBC 9.4 RBC 4.40 L Hgb 13.4 L Hct 41.4 L MCV 94.1 MCH 30.5 MCHC 32.4 RDW 13.1 Plt Count 163 MPV 10.0 Immature Gran % (Auto) 0.4 Neut % (Auto) 79.1 H Lymph % (Auto) 9.0 L [place] % (Auto) 10.8 H Eos % (Auto) 0.2 Baso % (Auto) 0.5 Lymph # (Auto) 0.85 L [place] # (Auto) 1.0 H Eos # (Auto) 0.0 Baso # (Auto) 0.1 Abs Immat Gran (auto) 0.04 H Absolute Neuts (auto) 7.5 H Absolute Nucleated RBC 0.000 Total Counted Neutrophils % (Manual) Band Neutrophils % Lymphocytes % (Manual) Monocytes % (Manual) Basophils % (Manual) Nucleated RBC % 0.0 Abs Neuts (Manual) Abs Lymphs (Manual) Abs Monocytes (Manual) Abs Basophils (Manual) Platelet Estimate Schistocytes PT INR APTT Puncture Site ABG pH ABG pCO2 ABG pO2 ABG PO2/FiO2 Ratio ABG HCO3 ABG O2 Saturation ABG O2 Content ABG Base Excess A-a Gradient Oxyhemoglobin Total Hemoglobin O2 Delivery Device O2 Liters/Min FiO2 Sodium 142 Potassium 3.6 Chloride 105 Carbon Dioxide 25 Anion Gap 12 BUN 13 Creatinine 0.86 Estim Creat Clear Calc 59 Estimated GFR > 60 Glucose 77 Lactic Acid 0.9 Calcium 8.5 Phosphorus Magnesium Total Bilirubin AST ALT Alkaline Phosphatase Total Protein Albumin Lipase TSH (Reflex) Urine Color Yellow Urine Appearance Clear Urine pH 5.5 Ur Specific [place] 1.022 Urine Protein 1+ H Urine Glucose (UA) Negative Urine Ketones Trace H Ur Blood (Man) 1+ H Urine Nitrate Negative Urine Bilirubin Negative Urine Urobilinogen 1.0 Leukocyte Esterase Rfl Negative Urine RBC 11-20 H Urine WBC 0-5 Ur Squamous Epith Cells None seen Urine Bacteria None seen Urine Casts 3-5 Urine Opiates Screen Negative Urine Methadone Screen Negative Ur Barbiturates Screen Negative Ur Phencyclidine Scrn Negative Ur Amphetamine Screen Negative U Benzodiazepines Scrn Negative Urine Cocaine Screen Negative U Cannabinoids Screen Negative Ethyl Alcohol Influenza A (RT-PCR) Influenza B (RT-PCR) RSV (RT-PCR) SARS-CoV-2 RNA (RT-PCR) Quality VTE Prophylaxis VTE prophylaxis: pharmacologic ordered (Lovenox 40 mg subQ daily)
[2024-05-20] MEDS: ENOXAPARIN 40 MG/0.4 ML SYRINGE SUB-Q (10:26)
[2024-05-20] MEDS: amLODIPine BESYLATE 5 MG TABLET PO (11:16)
[2024-05-20] MEDS: TAMSULOSIN HCL 0.4 MG CAPSULE PO (11:16)
[2024-05-20] MEDS: guaiFENesin 12 HR 600 MG TABCR 1200 MG PO ×2 (11:16→19:52)
[2024-05-20] MEDS: MULTIVITAMINS THERAPEUTIC TAB (*BKC) 1 TABLET PO (11:16)
[2024-05-20] MEDS: LOSARTAN POTASSIUM 100 MG TABLET PO (11:16)
[2024-05-20] MEDS: DIVALPROEX SODIUM DR 250 MG TABEC PO (11:16)
[2024-05-20] MEDS: CITALOPRAM HYDROBROMIDE 10 MG TABLET PO (11:17)
[2024-05-20] MEDS: MEMANTINE 10 MG TABLET PO ×2 (11:17→19:52)
[2024-05-20] MEDS: ATROPINE SULFATE 1% OPHTH SOLN 5 ML BOTTLE 1 DROP RIGHT EYE ×2 (11:33→20:01)
[2024-05-20 13:42] VITALS: BP 105/50; PULSE 55; RESP 20; TEMP 36.6; O2SAT 95
[2024-05-20] MEDS: LATANOPROST 0.005% OP SOLN 2.5 ML BTL 1 DROP EACH EYE (17:10)
[2024-05-20] MEDS: DIVALPROEX SODIUM DR 125 MG TABEC PO (17:25)
[2024-05-20] MEDS: predniSONE 20 MG TABLET 40 MG PO (18:11)
[2024-05-20 19:00] LABS: Procalcitonin 0.7 ng/mL
[2024-05-20] MEDS: ATORVASTATIN 40 MG TABLET PO (19:52)
[2024-05-20] MEDS: VANCOMYCIN 1,250 MG/NS 250 ML 1,250 MG/250 ML BAG 166.67 MG IVPB (19:53)
[2024-05-20 21:24] VITALS: BP 120/61; PULSE 59; RESP 24; TEMP 36.8; O2SAT 97
[2024-05-20] MEDS: VANCOMYCIN 1,000 MG/NS 250 ML 1,000 MG/250 ML BAG 250 MG IVPB (21:46)
--- NOTE | 2024-05-21 | ECHO_ITS ---
Patient Info Name: Enmanuel Kelly Age: 83 years : 1940 Gender: Male Ht: 69 in Wt: 191 lbs BSA: 2.07 m2 HR: 57 bpm BP: 131 / 65 mmHg Technical Quality: Good Exam Date: 05/21/2024 11:51 AM Exam Location: Echo Lab Exam Room: [facility] Patient Status: Inpatient Admit Date: 05/21/2024 Staff Ordering Physician: Agatha Gaona APRN [employer] Technician: Juanita Alvarez RDCS Attending Provider: Agatha Gaona APRN Referring Physician: Candelaria CORREIA; Exam Type: CA echo doppler color flow Study Info Indications - Shortness of breath Complete two-dimensional, color flow and Doppler transthoracic echocardiogram is performed. Summary 1. Complete two-dimensional, color flow and Doppler transthoracic echocardiogram is performed. 2. Left ventricular chamber dimension is normal. 3. Left ventricular systolic function is normal, estimated at 60-65%. 4. The left ventricular diastolic function is abnormal. 5. E/e' 11 is mildly elevated. 6. Left atrial chamber dimension is mildly enlarged. 7. There is severe aortic valve sclerosis. 8. There is moderate aortic valve stenosis with a peak velocity of 311 cm/s, mean gradient of 16 mmHg, and aortic valve area of 1.4 cm2. 9. There is mild aortic valve regurgitation. 10. There is mild mitral valve regurgitation. 11. There is mild to moderate tricuspid valve regurgitation. 12. Mild pulmonary hypertension, estimated pulmonary arterial systolic pressure is 45 mmHg. 13. The aortic root size at the sinus of Valsalva is mildly dilated at 4.2 cm. 14. Dilated inferior vena cava with >50% collapse upon inspiration consistent with elevated right atrial pressure, 10 mmHg. Left Ventricle E/e' 11 is mildly elevated. Left ventricular chamber dimension is normal. Left ventricular systolic function is normal, estimated at 60-65%. The left ventricular diastolic function is abnormal. Right Ventricle Right ventricular chamber dimension is normal. Right ventricular systolic function is normal. Left Atria Left atrial chamber dimension is mildly enlarged. Right Atria Right atrial chamber dimension is normal. Aortic Valve The aortic valve is trileaflet. There is severe aortic valve sclerosis. There is moderate aortic valve stenosis with a peak velocity of 311 cm/s, mean gradient of 16 mmHg, and aortic valve area of 1.4 cm2. There is mild aortic valve regurgitation. Pulmonic Valve There is no pulmonic regurgitation. Mitral Valve There is no mitral valve stenosis. There is mild mitral valve regurgitation. Tricuspid Valve There is mild to moderate tricuspid valve regurgitation. Mild pulmonary hypertension, estimated pulmonary arterial systolic pressure is 45 mmHg. Pericardium/Pleural There is no pericardial effusion. Inferior Vena Cava Dilated inferior vena cava with >50% collapse upon inspiration consistent with elevated right atrial pressure, 10 mmHg. Aorta The aortic root size at the sinus of Valsalva is mildly dilated at 4.2 cm. Left Ventricular Outflow Tract Name Value Normal LVOT 2D LVOT Diameter 2.0 cm LVOT Doppler LVOT Peak Gradient 9 mmHg LVOT Mean Gradient 5 mmHg LVOT VTI 36 cm LVOT VTI/AV VTI Ratio 0.5 LVOT Stroke Volume 110 ml LVOT CO 5.7 l/min LVOT CI 2.7 l/min/m2 Pulmonic Valve Name Value Normal PV Doppler PV Peak Gradient 5 mmHg Mitral Valve Name Value Normal MV Doppler MV Peak Gradient 4 mmHg MV Mean Gradient 1 mmHg MV Decel Avery 415 cm/s2 MV PHT 71 ms MV Area (PHT) 3.1 cm2 4.0-5.0 MV Area (Cont Eq VTI) 3.4 cm2 MV Regurgitation Doppler MR Peak Gradient 119 mmHg MV Diastolic Function MV E Peak Velocity 101 cm/s MV A Peak Velocity 65 cm/s MV E/A 1.6 MV Decel Time 244 ms MV Annular TDI MV E/e' (Septal) 10.4 <=8.0 MV E/e' (Lateral) 11.9 <=8.0 MV E/e' (Average) 11.2 Tricuspid Valve Name Value Normal TV Regurgitation Doppler TR Peak Velocity 294 cm/s TR Peak Gradient 35 mmHg Estimated PAP/RSVP RA Pressure 10 mmHg <=5 PA Systolic Pressure 45 mmHg <36 RV Systolic Pressure 45 mmHg <36 Aortic Valve Name Value Normal AV Doppler AV Peak Velocity 311 cm/s AV Peak Gradient 29 mmHg AV Mean Gradient 16 mmHg AV VTI 79 cm AV Area (Cont Eq VTI) 1.4 cm2 >=3.0 AV Regurgitation 2D LVOT Area 3.1 cm2 AV Regurgitation Doppler AR Decel Time 2,788 ms AR Decel Avery 136 cm/s2 AR PHT 809 ms Ventricles Name Value Normal LV Dimensions 2D/MM IVS Diastolic Thickness (2D) 0.9 cm 0.6-1.0 LVID Diastole (2D) 5.8 cm 4.2-5.8 LVIW Diastolic Thickness (2D) 0.9 cm 0.6-1.0 LVID Systole (2D) 3.5 cm 2.5-4.0 LVOT Diameter 2.0 cm LV Mass (2D Cubed) 193.85 g 88.00-224.00 LV Mass Index (2D Cubed) 94 g/m2 49-115 Relative Wall Thickness (2D) 0.31 LV Fractional Shortening/Ejection Fraction 2D/MM LV Fractional Shortening (2D) 39 % 25-43 LV EF (2D Teicholz) 68 % 52-72 LV Diastolic Volume (4C MOD) 163 ml LV EF (4C MOD) 65 % LV Diastolic Volume (2C MOD) 151 ml LV EF (2C MOD) 62 % LV Diastolic Volume (BP MOD) 160 ml 62-150 LV Diastolic Volume Index (BP MOD) 77 ml/m2 34-74 LV Systolic Volume (BP MOD) 57 ml 21-61 LV Systolic Volume Index (BP MOD) 28 ml/m2 11-31 LV EF (BP MOD) 64 % 52-72 LV Diastolic Length (4C) 9.9 cm LV Systolic Length (4C) 8.0 cm LV Stroke Volume (4C MOD) 106 ml Atria Name Value Normal LA Dimensions LA Volume (4C A-L) 48 ml LA Volume (BP A-L) 61 ml RA Dimensions RA Area (4C) 18.1 cm2 <=18.0 Report Signatures
[2024-05-21 06:00] VITALS: BP 131/65; PULSE 57; RESP 22; TEMP 36.2; O2SAT 95
[2024-05-21 07:48] LABS: Basophils Percent Auto 0.2 % (0.2-1.2); Hematocrit 38.1 % (42.0-52.0); Hemoglobin 12.5 g/dL (14.0-18.0); Immature Granulocyte Absolute 0.01 K/mm3 (0.00-0.031); Immature Granulocyte Percent A 0.2 % (0-0.5); Lymphocytes Absolute Auto 0.55 K/mm3 (0.9-3.2); Lymphocytes Percent Auto 10.3 % (18.3-44.2); Mean Corpuscular HGB Conc 32.8 g/dl (32-36); Mean Corpuscular Hemoglobin 30.4 pg (26-34); Mean Corpuscular Volume 92.7 fl (80-100); Mean Platelet Volume 10.1 fl (7.4-10.4); Monocytes Absolute Auto 0.5 K/mm3 (0.1-0.6); Monocytes Percent Auto 9.9 % (2.6-8.5); Neutrophils Absolute Auto 4.2 K/mm3 (1.3-6.7); Neutrophils Percent Auto 79.4 % (45.5-73.1); Platelet Count Result 149 k/mm3 (150-375); Red Blood Count 4.11 M/mm3 (4.6-6.20); Red Cell Distribution Width 12.9 % (11.5-14.5); White Blood Count 5.3 K/mm3 (4.5-10.0)
[2024-05-21 07:51] LABS: Alanine Aminotransferase 44 U/L (6-50); Albumin Level 3.6 g/dL (3.5-5.1); Alkaline Phosphatase 66 U/L (38-126); Anion Gap 9 mmol/L (4-12); Aspartate Amino Transferase 63 U/L (17-59); Bilirubin,Total 0.7 mg/dL (0.2-1.3); Blood Urea Nitrogen 14 mg/dL (9-20); Calcium 8.8 mg/dL (8.4-10.2); Carbon Dioxide 27 mmol/L (22-30); Chloride 105 mmol/L (98-107); Estimated CRCL calculation 69 ml/min; Estimated Glomerular Filt Rate > 60; Glucose 92 mg/dL (65-110); Magnesium 2.1 mg/dL (1.6-2.3); Potassium 3.9 mmol/L (3.4-5.0); Sodium 141 mmol/L (137-145)
[2024-05-21] MEDS: CITALOPRAM HYDROBROMIDE 10 MG TABLET PO (08:12)
[2024-05-21] MEDS: guaiFENesin 12 HR 600 MG TABCR 1200 MG PO ×2 (08:12→22:22)
[2024-05-21] MEDS: DIVALPROEX SODIUM DR 125 MG TABEC PO ×2 (08:12→16:52)
[2024-05-21] MEDS: OSELTAMIVIR PHOSPHATE 30 MG CAPSULE PO ×2 (08:12→22:22)
[2024-05-21] MEDS: predniSONE 20 MG TABLET 40 MG PO (08:12)
[2024-05-21] MEDS: MEMANTINE 10 MG TABLET PO ×2 (08:12→22:21)
[2024-05-21] MEDS: TAMSULOSIN HCL 0.4 MG CAPSULE PO (08:13)
[2024-05-21] MEDS: ATROPINE SULFATE 1% OPHTH SOLN 5 ML BOTTLE 1 DROP RIGHT EYE ×2 (08:13→22:23)
[2024-05-21] MEDS: amLODIPine BESYLATE 5 MG TABLET PO (08:13)
[2024-05-21] MEDS: LOSARTAN POTASSIUM 100 MG TABLET PO (08:13)
[2024-05-21] MEDS: ENOXAPARIN 40 MG/0.4 ML SYRINGE SUB-Q (08:13)
[2024-05-21] MEDS: MULTIVITAMINS THERAPEUTIC TAB (*BKC) 1 TABLET PO (08:13)
[2024-05-21] MEDS: DIVALPROEX SODIUM DR 250 MG TABEC PO (12:11)
[2024-05-21] MEDS: VANCOMYCIN 1,500 MG/NS 500 ML 1,500 MG/500 ML BAG 250 MG IVPB (13:27)
--- NOTE | 2024-05-21 15:40 | P.PNIM_ITS ---
Progress Note: A&P Assessment and Plan (1) Influenza A: Code(s): J10.1 - Influenza due to other identified influenza virus with other respiratory manifestations Status: Acute Assessment and Plan: * Respiratory panel positive for influenza A * Continue Tamiflu * Chest x-ray showed mild pulmonary vascular congestion without focal infiltrate or effusion * Continue guaifenesin * Will start prednisone 40 mg daily * Pep therapy and incentive spirometry ordered * Will obtain echocardiogram 05/21 * echocardiogram shown normal LV systolic function with an ejection fraction of 60-65%, abnormal diastolic function, severe aortic valve sclerosis, moderate aortic valve stenosis, mild pulmonary hypertension * continue incentive spirometry and pep therapy * continue Tamiflu * stop prednisone as it is not recommended for influenza patients (2) Abscess: Code(s): L02.91 - Cutaneous abscess, unspecified Status: Acute Assessment and Plan: * Patient had abscess on his back, I&D while in the ED * Wound nurse consult * Bandemia noted * Blood cultures obtained and pending * Patient was not treated with antibiotics while in the ED or when admitted * Will treat with vancomycin for now 05/21 * pack with Hydrofiber with AG rope and cover with Mepilex daily * continue vancomycin for now * blood cultures showing no growth to date on preliminary read (3) Dementia: Qualifiers: Alzheimer's disease onset: late onset Dementia behavioral or psychological symptom: unspecified whether behavioral, psychotic, or mood disturbance or anxiety Dementia severity: severe Dementia type: Alzheimer's Qualified Code(s): G30.1 - Alzheimer's disease with late onset; F02.C0 - Dementia in other diseases classified elsewhere, severe, without behavioral disturbance, psychotic disturbance, mood disturbance, and anxiety Code(s): F03.90 - Unspecified dementia, unspecified severity, without behavioral disturbance, psychotic disturbance, mood disturbance, and anxiety Status: Acute Assessment and Plan: * Continue Namenda * Head CT was negative for any acute intracranial hemorrhage or suspicious mass- effect, shown decreased attenuation within periventricular white matter secondary to microvascular ischemic disease 05/21 * no change to current treatment plan (4) Essential (primary) hypertension: Code(s): I10 - Essential (primary) hypertension Status: Acute Assessment and Plan: * Blood pressure ranging 137/70 to 155/67 * Continue amlodipine 05/21 * no change to current treatment plan Time Spent With Patient Time with patient: 25 - 35 minutes Subjective Date/time seen: 05/21/24 15:40 Interval history: Interval history: This is an 83-year-old male with a significant past medical history of dementia, hypertension, glaucoma, hepatic steatosis, who presented to the hospital with in decreased lethargy and increased confusion from his memory care center. Workup in the hospital included a right knee x-ray which did not show any acute osseous findings. Head CT was negative for any acute intracranial hemorrhage or s uspicious mass-effect. Chest x-ray showed mild pulmonary vascular congestion without focal infiltrate or effusion. Initial labs showed a white blood cell count of 10.6, band neutrophils 10, anion gap 14, lactic acid 2.6> 0.9. UA was obtained which showed 1+ urine protein, trace urine ketone, 1+ urine blood, 11- 20 urine RBC. Urine drug screen was negative. Respiratory panel was positive for influenza A. Blood cultures were obtained and pending. EKG showed sinus rhythm with a right bundle branch block, left anterior fascicular block, with a rate of 70, QTC 425. Patient was given 2.5 L normal saline, Tamiflu and was started on IV fluids at 100 mL/hour while in the ED. Subjective: Patient is alert and oriented x1. He denies any new complaints today. Labs revie fri. Review of Systems Review of Systems: Unable to obtain due to patient's history of dementia Exam Narrative: General: In no acute distress, well nourished Cardiac: Normal S1 and S2. mild murmur, No gallops or friction rubs, peripheral pulses intact. Respiratory: Currently wheezing with rhonchi throughout all lung amezcua bilaterally, he does not appear to be in any acute respiratory distress or use of accessory muscles to breathe. Currently on room air. Gastrointestinal: soft, non-distended, non-tender, normoactive bowel sounds. : voiding without difficulty. Neuro: Alert and oriented x1 Objective Data Vital Signs Vital Signs: Vital Signs - 24 hr 05/20/24 21:24 05/21/24 06:00 05/21/24 13:52 Temperature 98.3 F 97.2 F L Pulse Rate 59 L 57 L Respiratory Rate 24 H 22 H Blood Pressure 120/61 131/65 Pulse Oximetry 97 95 Oxygen Delivery Room Air 05/21/24 15:13 Temperature Pulse Rate Respiratory Rate Blood Pressure Pulse Oximetry Oxygen Delivery Room Air Intake/Output Intake/Output: Intake & Output 05/18/24 05/19/24 05/20/24 05/21/24 23:59 23:59 23:59 23:59 Intake Total 2700 2075 500 Output Total 450 375 Balance 2700 1625 125 Meds/Results Medications: Active Medications Generic Name Dose Route Start Last Admin Trade Name Freq PRN Reason Stop Dose Admin Acetaminophen 650 mg 05/19/24 23:00 Acetaminophen 325 Mg Tablet PO Q4H PRN Mild Pain (1-3) or Fever Amlodipine Besylate 5 mg 05/20/24 11:05 05/21/24 08:13 Amlodipine Besylate 5 Mg Tablet PO 5 mg QAM TOMMY Administration Atorvastatin Calcium 40 mg 05/20/24 21:00 05/20/24 19:52 Atorvastatin 40 Mg Tablet PO 40 mg QHS TOMMY Administration Atropine Sulfate 1 drop 05/20/24 11:05 05/21/24 08:13 Atropine Sulfate 1% Ophth Soln 5 Ml Bottle RIGHT EYE 1 drop Q12HR TOMMY Administration Citalopram Hydrobromide 10 mg 05/20/24 11:05 05/21/24 08:12 Citalopram Hydrobromide 10 Mg Tablet PO 10 mg DAILY TOMMY Administration Divalproex Sodium 125 mg 05/20/24 17:00 05/21/24 08:[address] 125 Mg Tabec PO 125 mg BID TOMMY Administration Divalproex Sodium 250 mg 05/20/24 12:00 05/21/24 12:[address] 250 Mg Tabec PO 250 mg DAILY@1200 TOMMY Administration Enoxaparin Sodium 40 mg 05/20/24 09:00 05/21/24 08:13 Enoxaparin 40 Mg/0.4 Ml Syringe SUB-Q 40 mg DAILY TOMMY Administration Guaifenesin 1,200 mg 05/20/24 11:10 05/21/24 08:12 Guaifenesin 12 Hr 600 Mg Tabcr PO 1,200 mg Q12HR TOMMY Administration Vancomycin HCl 1,500 mg in 500 mls @ 250 mls/hr 05/21/24 14:00 05/21/24 15:27 Vancomycin 1,500 Mg/Ns 500 Ml IVPB Infused Q18H TOMMY Infusion Latanoprost 1 drop 05/20/24 18:00 05/20/24 17:10 Latanoprost 0.005% Op Soln 2.5 Ml Btl EACH EYE 1 drop QPM TOMMY Administration Losartan Potassium 100 mg 05/20/24 11:05 05/21/24 08:13 Losartan Potassium 100 Mg Tablet PO 100 mg DAILY TOMMY Administration Memantine 10 mg 05/20/24 11:00 05/21/24 08:12 Memantine 10 Mg Tablet PO 10 mg Q12HR TOMMY Administration Multivitamins Therapeutic 1 tablet 05/20/24 11:10 05/21/24 08:13 Multivitamins Therapeutic Tab (*Bkc) PO 1 tablet DAILY TOMMY Administration Ondansetron HCl 4 mg 05/20/24 11:00 Ondansetron Inj 4 Mg/2 Ml Vial IV PUSH Q6H PRN Nausea And Vomiting Oseltamivir Phosphate 30 mg 05/19/24 22:05 05/21/24 08:12 Oseltamivir Phosphate 30 Mg Capsule PO 05/24/24 22:04 30 mg Q12HR TOMMY Administration Perflutren Lipid Microsphere 0 ml 05/20/24 18:07 Perflutren Lipid Microspheres 1.5 Ml Vial Diluted To 10 Ml Total Volume IV PUSH 05/23/24 18:07 ONCE PRN adequate visualization Protocol Prednisone 40 mg 05/20/24 18:00 05/21/24 08:12 Prednisone 20 Mg Tablet PO 40 mg DAILY@0800 TOMMY Administration Tamsulosin HCl 0.4 mg 05/20/24 11:10 05/21/24 08:13 Tamsulosin Hcl 0.4 Mg Capsule PO 0.4 mg DAILY TOMMY Administration Radiology Results: ITS Impressions Head CT 05/19/24 18:03 Impression: No acute intracranial hemorrhage or suspicious mass effect. Chest X-Ray 05/19/24 18:12 IMPRESSION: Mild pulmonary vascular congestion, without focal infiltrate or effusion. Labs Labs: Laboratory Results - last 24 hr 05/20/24 05/21/24 18:20 07:15 WBC 5.3 RBC 4.11 L Hgb 12.5 L Hct 38.1 L MCV 92.7 MCH 30.4 MCHC 32.8 RDW 12.9 Plt Count 149 L MPV 10.1 Immature Gran % (Auto) 0.2 Neut % (Auto) 79.4 H Lymph % (Auto) 10.3 L [place] % (Auto) 9.9 H Eos % (Auto) 0.0 Baso % (Auto) 0.2 Lymph # (Auto) 0.55 L [place] # (Auto) 0.5 Eos # (Auto) 0.0 Baso # (Auto) 0.0 Abs Immat Gran (auto) 0.01 Absolute Neuts (auto) 4.2 Absolute Nucleated RBC 0.000 Nucleated RBC % 0.0 Sodium 141 Potassium 3.9 Chloride 105 Carbon Dioxide 27 Anion Gap 9 BUN 14 Creatinine 0.73 Estim Creat Clear Calc 69 Estimated GFR > 60 Glucose 92 Calcium 8.8 Magnesium 2.1 Total Bilirubin 0.7 AST 63 H ALT 44 Alkaline Phosphatase 66 Total Protein 7.0 Albumin 3.6 Procalcitonin 0.7 Quality VTE Prophylaxis VTE prophylaxis: pharmacologic ordered (Lovenox 40 mg subQ daily)
[2024-05-21 15:43] VITALS: BP 121/60; PULSE 55; RESP 22; TEMP 36.3; O2SAT 98
[2024-05-21] MEDS: LATANOPROST 0.005% OP SOLN 2.5 ML BTL 1 DROP EACH EYE (16:59)
[2024-05-21 22:00] VITALS: BP 128/59; PULSE 62; RESP 20; TEMP 36.3; O2SAT 98
[2024-05-21] MEDS: ATORVASTATIN 40 MG TABLET PO (22:22)
[2024-05-22 06:00] VITALS: BP 128/73; PULSE 85; RESP 18; TEMP 36.4; O2SAT 96
[2024-05-22 06:56] LABS: Basophils Percent Auto 0.4 % (0.2-1.2); Eosinophils Percent Auto 0.2 % (0-4.4); Hematocrit 38.3 % (42.0-52.0); Hemoglobin 12.7 g/dL (14.0-18.0); Immature Granulocyte Absolute 0.01 K/mm3 (0.00-0.031); Immature Granulocyte Percent A 0.2 % (0-0.5); Lymphocytes Absolute Auto 0.99 K/mm3 (0.9-3.2); Lymphocytes Percent Auto 18.5 % (18.3-44.2); Mean Corpuscular HGB Conc 33.2 g/dl (32-36); Mean Corpuscular Hemoglobin 30.5 pg (26-34); Mean Corpuscular Volume 92.1 fl (80-100); Mean Platelet Volume 9.9 fl (7.4-10.4); Monocytes Absolute Auto 0.6 K/mm3 (0.1-0.6); Monocytes Percent Auto 10.7 % (2.6-8.5); Neutrophils Absolute Auto 3.7 K/mm3 (1.3-6.7); Platelet Count Result 151 k/mm3 (150-375); Red Blood Count 4.16 M/mm3 (4.6-6.20); Red Cell Distribution Width 12.7 % (11.5-14.5); White Blood Count 5.3 K/mm3 (4.5-10.0)
[2024-05-22 07:08] LABS: Alanine Aminotransferase 47 U/L (6-50); Albumin Level 3.1 g/dL (3.5-5.1); Alkaline Phosphatase 57 U/L (38-126); Anion Gap 6 mmol/L (4-12); Aspartate Amino Transferase 55 U/L (17-59); Bilirubin,Total 0.8 mg/dL (0.2-1.3); Blood Urea Nitrogen 14 mg/dL (9-20); Calcium 8.3 mg/dL (8.4-10.2); Carbon Dioxide 27 mmol/L (22-30); Chloride 106 mmol/L (98-107); Estimated CRCL calculation 68 ml/min; Estimated Glomerular Filt Rate > 60; Glucose 79 mg/dL (65-110); Potassium 3.4 mmol/L (3.4-5.0); Sodium 139 mmol/L (137-145)
[2024-05-22 07:14] LABS: Vancomycin Trough 9.4 ug/mL (10.0-20.0)
[2024-05-22] MEDS: DIVALPROEX SODIUM DR 125 MG TABEC PO ×2 (09:38→17:36)
[2024-05-22] MEDS: VANCOMYCIN 1,750 MG/NS 500 ML 1,750 MG/500 ML BAG 250 MG IVPB (09:38)
[2024-05-22] MEDS: LOSARTAN POTASSIUM 100 MG TABLET PO (09:38)
[2024-05-22] MEDS: guaiFENesin 12 HR 600 MG TABCR 1200 MG PO ×2 (09:39→21:06)
[2024-05-22] MEDS: CITALOPRAM HYDROBROMIDE 10 MG TABLET PO (09:39)
[2024-05-22] MEDS: ENOXAPARIN 40 MG/0.4 ML SYRINGE SUB-Q (09:39)
[2024-05-22] MEDS: TAMSULOSIN HCL 0.4 MG CAPSULE PO (09:39)
[2024-05-22] MEDS: MEMANTINE 10 MG TABLET PO ×2 (09:39→21:06)
[2024-05-22] MEDS: OSELTAMIVIR PHOSPHATE 30 MG CAPSULE PO ×2 (09:39→21:06)
[2024-05-22] MEDS: MULTIVITAMINS THERAPEUTIC TAB (*BKC) 1 TABLET PO (09:39)
[2024-05-22] MEDS: amLODIPine BESYLATE 5 MG TABLET PO (09:39)
[2024-05-22] MEDS: ATROPINE SULFATE 1% OPHTH SOLN 5 ML BOTTLE 1 DROP RIGHT EYE ×2 (09:40→21:06)
--- NOTE | 2024-05-22 10:38 | P.DS_ITS ---
DS: Admitting Diagnosis Discharge Date 05/22/24 DS: Summary Time Spent with Patient Time attestation: Total time spent providing and/or coordinating discharge services: DS: Data Data Completed and Pending Labs on day of discharge: Labs from last 24 hours 05/22/24 06:46 WBC 5.3 RBC 4.16 L Hgb 12.7 L Hct 38.3 L MCV 92.1 MCH 30.5 MCHC 33.2 RDW 12.7 Plt Count 151 MPV 9.9 Immature Gran % (Auto) 0.2 Neut % (Auto) 70.0 Lymph % (Auto) 18.5 [place] % (Auto) 10.7 H Eos % (Auto) 0.2 Baso % (Auto) 0.4 Lymph # (Auto) 0.99 [place] # (Auto) 0.6 Eos # (Auto) 0.0 Baso # (Auto) 0.0 Abs Immat Gran (auto) 0.01 Absolute Neuts (auto) 3.7 Absolute Nucleated RBC 0.000 Nucleated RBC % 0.0 Sodium 139 Potassium 3.4 Chloride 106 Carbon Dioxide 27 Anion Gap 6 BUN 14 Creatinine 0.74 Estim Creat Clear Calc 68 Estimated GFR > 60 Glucose 79 Calcium 8.3 L Total Bilirubin 0.8 AST 55 ALT 47 Alkaline Phosphatase 57 Total Protein 6.0 L Albumin 3.1 L Vancomycin Trough 9.4 L Preliminary micro results at discharge 05/19/24 18:36 Blood Culture - Preliminary Blood 05/19/24 18:39 Blood Culture - Preliminary Blood Discharge Plan Discharge Attending physician on discharge: Skip Ellington Discharging Clinician: Agatha Gaona Anticipated Discharge Date/Time: 05/22/24 10:31 Patient Disposition: NH Retirement/As[facility] Living Activity: as tolerated Diet: as tolerated and heart healthy Wound Care Instructions: other - see discharge instructions Discharge Instructions: * Finish all your antibiotics and antivirals as prescribed even if you are feeling better * follow up with primary care doctor in 1 week. * For wound care--cleanse wound with wound cleanser, pack wound with hydrofiber Ag (Aquacel Ag) and then cover with foam boarder. Patient Instructions: Antibiotic Form, Doxycycline (By mouth), Oseltamivir (By mouth), Pain Management in Older Adults (DC), Influenza (DC), Abscess (ED) Patient Language: Sami Stand Alone Forms: General Discharge Information, [facility] Discharge Follow-up/Referrals: Aaron,Mindy Perea MD [Primary Care Provider] - 1 Week Discharge Medications: New oseltamivir [Tamiflu] 30 mg Capsule 30 mg PO Q12HR Qty: 5 0RF guaifenesin [Mucus Relief ER] 600 mg Tablet Extended Release 12hr 1,200 mg PO Q12HR Qty: 20 0RF doxycycline hyclate 100 mg tablet 100 mg PO DAILY Qty: 7 0RF Continued amlodipine 5 mg tablet 5 mg PO .qam citalopram 10 mg tablet 10 mg PO DAILY divalproex 250 mg tablet,delayed release (DR/EC) 250 mg PO DAILY@1200 multivitamin with folic acid [Tab-A-Luis] 400 mcg tablet 1 tablet PO DAILY divalproex 125 mg tablet,delayed release (DR/EC) 125 mg PO BID memantine 10 mg tablet 10 mg PO .q12hr atorvastatin 40 mg tablet 40 mg PO QHS donepezil [Aricept] 23 mg tablet 23 mg PO QHS ramelteon 8 mg tablet 8 mg PO HS atropine 1 % drops 1 drp RIGHT EYE BID Qty: 15 0RF losartan 100 mg tablet 100 mg PO DAILY Qty: 90 1RF tamsulosin 0.4 mg capsule 0.4 mg PO DAILY Qty: 90 1RF latanoprost 0.005 % drops 1 drp EACH EYE QPM Qty: 7.5 0RF Date of admission: 05/21/24 10:18 Primary Care Provider: Aaron,Mindy Perea Admitting Provider: Cyndee Davis Attending physician on admission: Agatha Gaona Condition: Improved
[2024-05-22] MEDS: DIVALPROEX SODIUM DR 250 MG TABEC PO (13:00)
[2024-05-22 14:00] VITALS: BP 115/52; PULSE 60; RESP 24; TEMP 36.6; O2SAT 94
--- NOTE | 2024-05-22 16:43 | P.PNIM_ITS ---
Progress Note: A&P Assessment and Plan (1) Influenza A: Code(s): J10.1 - Influenza due to other identified influenza virus with other respiratory manifestations Status: Acute Assessment and Plan: * Respiratory panel positive for influenza A * Continue Tamiflu * Chest x-ray showed mild pulmonary vascular congestion without focal infiltrate or effusion * Continue guaifenesin * Will start prednisone 40 mg daily * Pep therapy and incentive spirometry ordered * Will obtain echocardiogram 05/21 * echocardiogram shown normal LV systolic function with an ejection fraction of 60-65%, abnormal diastolic function, severe aortic valve sclerosis, moderate aortic valve stenosis, mild pulmonary hypertension * continue incentive spirometry and pep therapy * continue Tamiflu * stop prednisone as it is not recommended for influenza patients 05/22 * continue Tamiflu * continue incentive spirometry and pep therapy (2) Abscess: Code(s): L02.91 - Cutaneous abscess, unspecified Status: Acute Assessment and Plan: * Patient had abscess on his back, I&D while in the ED * Wound nurse consult * Bandemia noted * Blood cultures obtained and pending * Patient was not treated with antibiotics while in the ED or when admitted * Will treat with vancomycin for now 05/21 * pack with Hydrofiber with AG rope and cover with Mepilex daily * continue vancomycin for now * blood cultures showing no growth to date on preliminary read 05/22 * vancomycin discontinued * doxycycline oral ordered (3) Dementia: Qualifiers: Dementia type: Alzheimer's Alzheimer's disease onset: late onset Dementia severity: severe Dementia behavioral or psychological symptom: unspecified whether behavioral, psychotic, or mood disturbance or anxiety Qualified Code(s): G30.1 - Alzheimer's disease with late onset; F02.C0 - Dementia in other diseases classified elsewhere, severe, without behavioral disturbance, psychotic disturbance, mood disturbance, and anxiety Code(s): F03.90 - Unspecified dementia, unspecified severity, without behavioral disturbance, psychotic disturbance, mood disturbance, and anxiety Status: Acute Assessment and Plan: * Continue Namenda * Head CT was negative for any acute intracranial hemorrhage or suspicious mass- effect, shown decreased attenuation within periventricular white matter secondary to microvascular ischemic disease 05/21 * no change to current treatment plan (4) Essential (primary) hypertension: Code(s): I10 - Essential (primary) hypertension Status: Acute Assessment and Plan: * Blood pressure ranging 137/70 to 155/67 * Continue amlodipine 05/21 * no change to current treatment plan Time Spent With Patient Time with patient: 25 - 35 minutes Subjective Date/time seen: 05/22/24 16:43 Interval history: Interval history: This is an 83-year-old male with a significant past medical history of dementia, hypertension, glaucoma, hepatic steatosis, who presented to the hospital with in decreased lethargy and increased confusion from his memory care center. Workup in the hospital included a right knee x-ray which did not show any acute osseous findings. Head CT was negative for any acute intracranial hemorrhage or suspicious mass-effect. Chest x-ray showed mild pulmonary vascular congestion without focal infiltrate or effusion. Initial labs showed a white blood cell count of 10.6, band neutrophils 10, anion gap 14, lactic acid 2.6> 0.9. UA was obtained which showed 1+ urine protein, trace urine ketone, 1+ urine blood, 11- 20 urine RBC. Urine drug screen was negative. Respiratory panel was positive for influenza A. Blood cultures were obtained and pending. EKG showed sinus rhythm with a right bundle branch block, left anterior fascicular block, with a rate of 70, QTC 425. Patient was given 2.5 L normal saline, Tamiflu and was started on IV fluids at 100 mL/hour while in the ED. Subjective: Patient is alert and oriented x1. He denies any new complaints today. Labs reviewed. Review of Systems Review of Systems: Unable to obtain due to patient's history of dementia Exam Narrative: General: In no acute distress, well nourished Cardiac: Normal S1 and S2. mild murmur, No gallops or friction rubs, peripheral pulses intact. Respiratory: Currently wheezing with rhonchi throughout all lung amezcua bilaterally, he does not appear to be in any acute respiratory distress or use of accessory muscles to breathe. Currently on room air. Gastrointestinal: soft, non-distended, non-tender, normoactive bowel sounds. : voiding without difficulty. Neuro: Alert and oriented x1 Objective Data Vital Signs Vital Signs: Vital Signs - 24 hr 05/21/24 22:00 05/22/24 06:00 05/22/24 14:00 Temperature 97.3 F L 97.5 F L 97.8 F Pulse Rate 62 85 60 Respiratory Rate 20 18 24 H Blood Pressure 128/59 L 128/73 115/52 L Pulse Oximetry 98 96 94 Intake/Output Intake/Output: Intake & Output 05/19/24 05/20/24 05/21/24 05/22/24 23:59 23:59 23:59 23:59 Intake Total 2700 2075 1530 1030 Output Total 450 375 Balance 2700 1625 1155 1030 Meds/Results Medications: Active Medications Generic Name Dose Route Start Last Admin Trade Name Freq PRN Reason Stop Dose Admin Acetaminophen 650 mg 05/19/24 23:00 Acetaminophen 325 Mg Tablet PO Q4H PRN Mild Pain (1-3) or Fever Amlodipine Besylate 5 mg 05/20/24 11:05 05/22/24 09:39 Amlodipine Besylate 5 Mg Tablet PO 5 mg QAM TOMMY Administration Atorvastatin Calcium 40 mg 05/20/24 21:00 05/21/24 22:22 Atorvastatin 40 Mg Tablet PO 40 mg QHS TOMMY Administration Atropine Sulfate 1 drop 05/20/24 11:05 05/22/24 09:40 Atropine Sulfate 1% Ophth Soln 5 Ml Bottle RIGHT EYE 1 drop Q12HR TOMMY Administration Citalopram Hydrobromide 10 mg 05/20/24 11:05 05/22/24 09:39 Citalopram Hydrobromide 10 Mg Tablet PO 10 mg DAILY TOMMY Administration Divalproex Sodium 125 mg 05/20/24 17:00 05/22/24 09:[address] 125 Mg Tabec PO 125 mg BID TOMMY Administration Divalproex Sodium 250 mg 05/20/24 12:00 05/22/24 13:[address] 250 Mg Tabec PO 250 mg DAILY@1200 TOMMY Administration Enoxaparin Sodium 40 mg 05/20/24 09:00 05/22/24 09:39 Enoxaparin 40 Mg/0.4 Ml Syringe SUB-Q 40 mg DAILY TOMMY Administration Guaifenesin 1,200 mg 05/20/24 11:10 05/22/24 09:39 Guaifenesin 12 Hr 600 Mg Tabcr PO 1,200 mg Q12HR TOMMY Administration Vancomycin HCl 1,750 mg in 500 mls @ 250 mls/hr 05/22/24 08:00 05/22/24 09:38 Vancomycin 1,750 Mg/Ns 500 Ml IVPB 250 mls/hr Q12H TOMMY Administration Latanoprost 1 drop 05/20/24 18:00 05/21/24 16:59 Latanoprost 0.005% Op Soln 2.5 Ml Btl EACH EYE 1 drop QPM TOMMY Administration Losartan Potassium 100 mg 05/20/24 11:05 05/22/24 09:38 Losartan Potassium 100 Mg Tablet PO 100 mg DAILY TOMMY Administration Memantine 10 mg 05/20/24 11:00 05/22/24 09:39 Memantine 10 Mg Tablet PO 10 mg Q12HR TOMMY Administration Multivitamins Therapeutic 1 tablet 05/20/24 11:10 05/22/24 09:39 Multivitamins Therapeutic Tab (*Bkc) PO 1 tablet DAILY TOMMY Administration Ondansetron HCl 4 mg 05/20/24 11:00 Ondansetron Inj 4 Mg/2 Ml Vial IV PUSH Q6H PRN Nausea And Vomiting Oseltamivir Phosphate 30 mg 05/19/24 22:05 05/22/24 09:39 Oseltamivir Phosphate 30 Mg Capsule PO 05/24/24 22:04 30 mg Q12HR TOMMY Administration Perflutren Lipid Microsphere 0 ml 05/20/24 18:07 Perflutren Lipid Microspheres 1.5 Ml Vial Diluted To 10 Ml Total Volume IV PUSH 05/23/24 18:07 ONCE PRN adequate visualization Protocol Tamsulosin HCl 0.4 mg 05/20/24 11:10 05/22/24 09:39 Tamsulosin Hcl 0.4 Mg Capsule PO 0.4 mg DAILY TOMMY Administration Radiology Results: ITS Impressions Head CT 05/19/24 18:03 Impression: No acute intracranial hemorrhage or suspicious mass effect. Chest X-Ray 05/19/24 18:12 IMPRESSION: Mild pulmonary vascular congestion, without focal infiltrate or effusion. Labs Labs: Laboratory Results - last 24 hr 05/22/24 06:46 WBC 5.3 RBC 4.16 L Hgb 12.7 L Hct 38.3 L MCV 92.1 MCH 30.5 MCHC 33.2 RDW 12.7 Plt Count 151 MPV 9.9 Immature Gran % (Auto) 0.2 Neut % (Auto) 70.0 Lymph % (Auto) 18.5 [place] % (Auto) 10.7 H Eos % (Auto) 0.2 Baso % (Auto) 0.4 Lymph # (Auto) 0.99 [place] # (Auto) 0.6 Eos # (Auto) 0.0 Baso # (Auto) 0.0 Abs Immat Gran (auto) 0.01 Absolute Neuts (auto) 3.7 Absolute Nucleated RBC 0.000 Nucleated RBC % 0.0 Sodium 139 Potassium 3.4 Chloride 106 Carbon Dioxide 27 Anion Gap 6 BUN 14 Creatinine 0.74 Estim Creat Clear Calc 68 Estimated GFR > 60 Glucose 79 Calcium 8.3 L Total Bilirubin 0.8 AST 55 ALT 47 Alkaline Phosphatase 57 Total Protein 6.0 L Albumin 3.1 L Vancomycin Trough 9.4 L Quality VTE Prophylaxis VTE prophylaxis: pharmacologic ordered (Lovenox 40 mg subQ daily)
[2024-05-22] MEDS: DOXYCYCLINE HYCLATE 100 MG TABLET PO (21:06)
[2024-05-22] MEDS: ATORVASTATIN 40 MG TABLET PO (21:07)
[2024-05-22 21:44] VITALS: BP 135/66; PULSE 63; RESP 16; TEMP 37.1; O2SAT 95
[2024-05-22] MEDS: ACETAMINOPHEN 325 MG TABLET 650 MG PO (23:12)
[2024-05-23 06:00] VITALS: BP 138/64; PULSE 59; RESP 20; TEMP 36.8; O2SAT 96
[2024-05-23 06:40] LABS: Basophils Percent Auto 0.8 % (0.2-1.2); Eosinophils Percent Auto 0.4 % (0-4.4); Hematocrit 38.6 % (42.0-52.0); Hemoglobin 12.8 g/dL (14.0-18.0); Immature Granulocyte Absolute 0.02 K/mm3 (0.00-0.031); Immature Granulocyte Percent A 0.4 % (0-0.5); Lymphocytes Absolute Auto 1.22 K/mm3 (0.9-3.2); Lymphocytes Percent Auto 25.5 % (18.3-44.2); Mean Corpuscular HGB Conc 33.2 g/dl (32-36); Mean Corpuscular Hemoglobin 30.3 pg (26-34); Mean Corpuscular Volume 91.3 fl (80-100); Monocytes Absolute Auto 0.7 K/mm3 (0.1-0.6); Monocytes Percent Auto 13.8 % (2.6-8.5); Neutrophils Absolute Auto 2.8 K/mm3 (1.3-6.7); Neutrophils Percent Auto 59.1 % (45.5-73.1); Platelet Count Result 178 k/mm3 (150-375); Red Blood Count 4.23 M/mm3 (4.6-6.20); Red Cell Distribution Width 12.7 % (11.5-14.5); White Blood Count 4.8 K/mm3 (4.5-10.0)
[2024-05-23 06:48] LABS: Alanine Aminotransferase 57 U/L (6-50); Albumin Level 3.2 g/dL (3.5-5.1); Alkaline Phosphatase 60 U/L (38-126); Anion Gap 8 mmol/L (4-12); Aspartate Amino Transferase 54 U/L (17-59); Bilirubin,Total 0.8 mg/dL (0.2-1.3); Blood Urea Nitrogen 12 mg/dL (9-20); Calcium 8.4 mg/dL (8.4-10.2); Carbon Dioxide 26 mmol/L (22-30); Chloride 105 mmol/L (98-107); Estimated CRCL calculation 62 ml/min; Estimated Glomerular Filt Rate > 60; Glucose 76 mg/dL (65-110); Potassium 3.3 mmol/L (3.4-5.0); Sodium 139 mmol/L (137-145)
--- NOTE | 2024-05-23 09:08 | PM.DS ---
DS: Admitting Diagnosis Discharge Date 05/23/24 DS: Summary Time Spent with Patient Time attestation: Total time spent providing and/or coordinating discharge services: DS: Data Data Completed and Pending Labs on day of discharge: Labs from last 24 hours 05/23/24 05:37 WBC 4.8 RBC 4.23 L Hgb 12.8 L Hct 38.6 L MCV 91.3 MCH 30.3 MCHC 33.2 RDW 12.7 Plt Count 178 MPV 10.0 Immature Gran % (Auto) 0.4 Neut % (Auto) 59.1 Lymph % (Auto) 25.5 [place] % (Auto) 13.8 H Eos % (Auto) 0.4 Baso % (Auto) 0.8 Lymph # (Auto) 1.22 [place] # (Auto) 0.7 H Eos # (Auto) 0.0 Baso # (Auto) 0.0 Abs Immat Gran (auto) 0.02 Absolute Neuts (auto) 2.8 Absolute Nucleated RBC 0.000 Nucleated RBC % 0.0 Sodium 139 Potassium 3.3 L Chloride 105 Carbon Dioxide 26 Anion Gap 8 BUN 12 Creatinine 0.82 Estim Creat Clear Calc 62 Estimated GFR > 60 Glucose 76 Calcium 8.4 Total Bilirubin 0.8 AST 54 ALT 57 H Alkaline Phosphatase 60 Total Protein 5.0 L Albumin 3.2 L Preliminary micro results at discharge 05/19/24 18:36 Blood Culture - Preliminary Blood 05/19/24 18:39 Blood Culture - Preliminary Blood Discharge Plan Discharge Attending physician on discharge: Skip Ellington Discharging Clinician: Agatha Gaona Anticipated Discharge Date/Time: 05/23/24 09:05 Patient Disposition: NH Skilled Nursing/Asst Living Activity: as tolerated Diet: as tolerated and heart healthy Wound Care Instructions: other - see discharge instructions Discharge Instructions: Finish all your antibiotics and antivirals as prescribed even if you are feeling better follow up with primary care doctor in 1 week. For wound care--cleanse wound with wound cleanser, pack wound with hydrofiber Ag (Aquacel Ag) and then cover with foam boarder. Patient Instructions: Antibiotic Form, Doxycycline (By mouth), Oseltamivir (By mouth), Pain Management in Older Adults (DC), Influenza (DC), Abscess (ED) Patient Language: French Stand Alone Forms: General Discharge Information, [facility] Discharge Follow-up/Referrals: Rostovtseva,Mindy Perea MD [Primary Care Provider] - 1 Week Discharge Medications: New oseltamivir [Tamiflu] 30 mg Capsule 30 mg PO Q12HR Qty: 2 0RF guaifenesin [Mucus Relief ER] 600 mg Tablet Extended Release 12hr 1,200 mg PO Q12HR Qty: 20 0RF doxycycline hyclate 100 mg tablet 100 mg PO DAILY Qty: 5 0RF Continued amlodipine 5 mg tablet 5 mg PO .qam citalopram 10 mg tablet 10 mg PO DAILY divalproex 250 mg tablet,delayed release (DR/EC) 250 mg PO DAILY@1200 multivitamin with folic acid [Tab-A-Luis] 400 mcg tablet 1 tablet PO DAILY divalproex 125 mg tablet,delayed release (DR/EC) 125 mg PO BID memantine 10 mg tablet 10 mg PO .q12hr atorvastatin 40 mg tablet 40 mg PO QHS donepezil [Aricept] 23 mg tablet 23 mg PO QHS ramelteon 8 mg tablet 8 mg PO HS atropine 1 % drops 1 drp RIGHT EYE BID Qty: 15 0RF losartan 100 mg tablet 100 mg PO DAILY Qty: 90 1RF tamsulosin 0.4 mg capsule 0.4 mg PO DAILY Qty: 90 1RF latanoprost 0.005 % drops 1 drp EACH EYE QPM Qty: 7.5 0RF Date of admission: 05/21/24 10:18 Primary Care Provider: Aaron,Mindy Perea Admitting Provider: Cyndee Davis Attending physician on admission: Agatha Gaona Condition: Improved
[2024-05-23] MEDS: ENOXAPARIN 40 MG/0.4 ML SYRINGE SUB-Q (09:48)
[2024-05-23] MEDS: LOSARTAN POTASSIUM 100 MG TABLET PO (09:49)
[2024-05-23] MEDS: DOXYCYCLINE HYCLATE 100 MG TABLET PO ×2 (09:49→20:38)
[2024-05-23] MEDS: guaiFENesin 12 HR 600 MG TABCR 1200 MG PO ×2 (09:49→20:39)
[2024-05-23] MEDS: amLODIPine BESYLATE 5 MG TABLET PO (09:49)
[2024-05-23] MEDS: MEMANTINE 10 MG TABLET PO ×2 (09:49→20:39)
[2024-05-23] MEDS: DIVALPROEX SODIUM DR 125 MG TABEC PO ×2 (09:49→17:24)
[2024-05-23] MEDS: CITALOPRAM HYDROBROMIDE 10 MG TABLET PO (09:49)
[2024-05-23] MEDS: TAMSULOSIN HCL 0.4 MG CAPSULE PO (09:49)
[2024-05-23] MEDS: MULTIVITAMINS THERAPEUTIC TAB (*BKC) 1 TABLET PO (09:49)
[2024-05-23] MEDS: OSELTAMIVIR PHOSPHATE 30 MG CAPSULE PO ×2 (09:49→20:39)
[2024-05-23 09:50] VITALS: BP 148/75; PULSE 51; O2SAT 96
[2024-05-23] MEDS: ATROPINE SULFATE 1% OPHTH SOLN 5 ML BOTTLE 1 DROP RIGHT EYE ×2 (09:57→20:38)
[2024-05-23] MEDS: DIVALPROEX SODIUM DR 250 MG TABEC PO (12:20)
--- NOTE | 2024-05-23 13:52 | P.PNIM_ITS ---
Progress Note: A&P Assessment and Plan (1) Influenza A: Code(s): J10.1 - Influenza due to other identified influenza virus with other respiratory manifestations Status: Acute Assessment and Plan: * Respiratory panel positive for influenza A * Continue Tamiflu * Chest x-ray showed mild pulmonary vascular congestion without focal infiltrate or effusion * Continue guaifenesin * Will start prednisone 40 mg daily * Pep therapy and incentive spirometry ordered * Will obtain echocardiogram 05/21 * echocardiogram shown normal LV systolic function with an ejection fraction of 60-65%, abnormal diastolic function, severe aortic valve sclerosis, moderate aortic valve stenosis, mild pulmonary hypertension * continue incentive spirometry and pep therapy * continue Tamiflu * stop prednisone as it is not recommended for influenza patients 05/22 * continue Tamiflu * continue incentive spirometry and pep therapy 05/23 * No change to current treatment plan (2) Abscess: Code(s): L02.91 - Cutaneous abscess, unspecified Status: Acute Assessment and Plan: * Patient had abscess on his back, I&D while in the ED * Wound nurse consult * Bandemia noted * Blood cultures obtained and pending * Patient was not treated with antibiotics while in the ED or when admitted * Will treat with vancomycin for now 05/21 * pack with Hydrofiber with AG rope and cover with Mepilex daily * continue vancomycin for now * blood cultures showing no growth to date on preliminary read 05/22 * vancomycin discontinued * doxycycline oral ordered 05/23 * Continue dressing changes * Continue (3) Dementia: Qualifiers: Dementia type: Alzheimer's Alzheimer's disease onset: late onset Dementia severity: severe Dementia behavioral or psychological symptom: unspecified whether behavioral, psychotic, or mood disturbance or anxiety Qualified Code(s): G30.1 - Alzheimer's disease with late onset; F02.C0 - Dementi a in other diseases classified elsewhere, severe, without behavioral disturbance, psychotic disturbance, mood disturbance, and anxiety Code(s): F03.90 - Unspecified dementia, unspecified severity, without behavioral disturbance, psychotic disturbance, mood disturbance, and anxiety Status: Acute Assessment and Plan: * Continue Namenda * Head CT was negative for any acute intracranial hemorrhage or suspicious mass- effect, shown decreased attenuation within periventricular white matter secondary to microvascular ischemic disease 05/21 * no change to current treatment plan 05/23 * Sitter at bedside (4) Essential (primary) hypertension: Code(s): I10 - Essential (primary) hypertension Status: Acute Assessment and Plan: * Blood pressure ranging 137/70 to 155/67 * Continue amlodipine 05/21 * no change to current treatment plan Time Spent With Patient Time with patient: 25 - 35 minutes Subjective Date/time seen: 05/23/24 13:52 Interval history: Interval history: This is an 83-year-old male with a significant past medical history of dementia, hypertension, glaucoma, hepatic steatosis, who presented to the hospital with in decreased lethargy and increased confusion from his memory care center. Workup in the hospital included a right knee x-ray which did not show any acute osseous findings. Head CT was negative for any acute intracranial hemorrhage or suspicious mass-effect. Chest x-ray showed mild pulmonary vascular congestion without focal infiltrate or effusion. Initial labs showed a white blood cell count of 10.6, band neutrophils 10, anion gap 14, lactic acid 2.6> 0.9. UA was obtained which showed 1+ urine protein, trace urine ketone, 1+ urine blood, 11- 20 urine RBC. Urine drug screen was negative. Respiratory panel was positive for influenza A. Blood cultures were obtained and pending. EKG showed sinus rhythm with a right bundle branch block, left anterior fascicular block, with a rate of 70, QTC 425. Patient was given 2.5 L normal saline, Tamiflu and was started on IV fluids at 100 mL/hour while in the ED. Subjective: Patient is alert and oriented x1. He has a sitter at the bedside. Labs reviewed. Review of Systems Review of Systems: Unable to obtain due to patient's history of dementia Exam Narrative: General: In no acute distress, well nourished Cardiac: Normal S1 and S2. mild murmur, No gallops or friction rubs, peripheral pulses intact. Respiratory: Currently wheezing with rhonchi throughout all lung amezcua bilaterally, he does not appear to be in any acute respiratory distress or use of accessory muscles to breathe. Currently on room air. Gastrointestinal: soft, non-distended, non-tender, normoactive bowel sounds. : voiding without difficulty. Neuro: Alert to voice and oriented x1 Objective Data Vital Signs Vital Signs: Vital Signs - 24 hr 05/22/24 14:00 05/22/24 21:44 05/23/24 06:00 Temperature 97.8 F 98.8 F 98.3 F Pulse Rate 60 63 59 L Respiratory Rate 24 H 16 20 Blood Pressure 115/52 L 135/66 138/64 Pulse Oximetry 94 95 96 Oxygen Delivery 05/23/24 09:50 05/23/24 09:50 Temperature Pulse Rate 51 L Respiratory Rate Blood Pressure 148/75 H Pulse Oximetry 96 Oxygen Delivery Room Air Intake/Output Intake/Output: Intake & Output 05/20/24 05/21/24 05/22/24 05/23/24 23:59 23:59 23:59 23:59 Intake Total 2075 1530 1979 240 Output Total 450 375 250 Balance 1625 1155 1979 Meds/Results Medications: Active Medications Generic Name Dose Route Start Last Admin Trade Name Freq PRN Reason Stop Dose Admin Acetaminophen 650 mg 05/19/24 23:00 05/22/24 23:12 Acetaminophen 325 Mg Tablet PO 650 mg Q4H PRN Administration Mild Pain (1-3) or Fever Amlodipine Besylate 5 mg 05/20/24 11:05 05/23/24 09:49 Amlodipine Besylate 5 Mg Tablet PO 5 mg QAM TOMMY Administration Atorvastatin Calcium 40 mg 05/20/24 21:00 05/22/24 21:07 Atorvastatin 40 Mg Tablet PO 40 mg QHS TOMMY Administration Atropine Sulfate 1 drop 05/20/24 11:05 05/23/24 09:57 Atropine Sulfate 1% Ophth Soln 5 Ml Bottle RIGHT EYE 1 drop Q12HR TOMMY Administration Citalopram Hydrobromide 10 mg 05/20/24 11:05 05/23/24 09:49 Citalopram Hydrobromide 10 Mg Tablet PO 10 mg DAILY TOMMY Administration Divalproex Sodium 125 mg 05/20/24 17:00 05/23/24 09:[address] 125 Mg Tabec PO 125 mg BID TOMMY Administration Divalproex Sodium 250 mg 05/20/24 12:00 05/23/24 12:[address] 250 Mg Tabec PO 250 mg DAILY@1200 TOMMY Administration Doxycycline Hyclate 100 mg 05/22/24 21:00 05/23/24 09:49 Doxycycline Hyclate 100 Mg Tablet PO 100 mg Q12HR TOMMY Administration Enoxaparin Sodium 40 mg 05/20/24 09:00 05/23/24 09:48 Enoxaparin 40 Mg/0.4 Ml Syringe SUB-Q 40 mg DAILY TOMMY Administration Guaifenesin 1,200 mg 05/20/24 11:10 05/23/24 09:49 Guaifenesin 12 Hr 600 Mg Tabcr PO 1,200 mg Q12HR TOMMY Administration Latanoprost 1 drop 05/20/24 18:00 05/22/24 17:53 Latanoprost 0.005% Op Soln 2.5 Ml Btl EACH EYE Not Given QPM TOMMY Losartan Potassium 100 mg 05/20/24 11:05 05/23/24 09:49 Losartan Potassium 100 Mg Tablet PO 100 mg DAILY TOMMY Administration Memantine 10 mg 05/20/24 11:00 05/23/24 09:49 Memantine 10 Mg Tablet PO 10 mg Q12HR TOMMY Administration Multivitamins Therapeutic 1 tablet 05/20/24 11:10 05/23/24 09:49 Multivitamins Therapeutic Tab (*Bkc) PO 1 tablet DAILY TOMMY Administration Ondansetron HCl 4 mg 05/20/24 11:00 Ondansetron Inj 4 Mg/2 Ml Vial IV PUSH Q6H PRN Nausea And Vomiting Oseltamivir Phosphate 30 mg 05/19/24 22:05 05/23/24 09:49 Oseltamivir Phosphate 30 Mg Capsule PO 05/24/24 22:04 30 mg Q12HR TOMMY Administration Perflutren Lipid Microsphere 0 ml 05/20/24 18:07 Perflutren Lipid Microspheres 1.5 Ml Vial Diluted To 10 Ml Total Volume IV PUSH 05/23/24 18:07 ONCE PRN adequate visualization Protocol Tamsulosin HCl 0.4 mg 05/20/24 11:10 05/23/24 09:49 Tamsulosin Hcl 0.4 Mg Capsule PO 0.4 mg DAILY TOMMY Administration Radiology Results: ITS Impressions Head CT 05/19/24 18:03 Impression: No acute intracranial hemorrhage or suspicious mass effect. Chest X-Ray 05/19/24 18:12 IMPRESSION: Mild pulmonary vascular congestion, without focal infiltrate or effusion. Labs Labs: Laboratory Results - last 24 hr 05/23/24 05:37 WBC 4.8 RBC 4.23 L Hgb 12.8 L Hct 38.6 L MCV 91.3 MCH 30.3 MCHC 33.2 RDW 12.7 Plt Count 178 MPV 10.0 Immature Gran % (Auto) 0.4 Neut % (Auto) 59.1 Lymph % (Auto) 25.5 [place] % (Auto) 13.8 H Eos % (Auto) 0.4 Baso % (Auto) 0.8 Lymph # (Auto) 1.22 [place] # (Auto) 0.7 H Eos # (Auto) 0.0 Baso # (Auto) 0.0 Abs Immat Gran (auto) 0.02 Absolute Neuts (auto) 2.8 Absolute Nucleated RBC 0.000 Nucleated RBC % 0.0 Sodium 139 Potassium 3.3 L Chloride 105 Carbon Dioxide 26 Anion Gap 8 BUN 12 Creatinine 0.82 Estim Creat Clear Calc 62 Estimated GFR > 60 Glucose 76 Calcium 8.4 Total Bilirubin 0.8 AST 54 ALT 57 H Alkaline Phosphatase 60 Total Protein 5.0 L Albumin 3.2 L Quality VTE Prophylaxis VTE prophylaxis: pharmacologic ordered (Lovenox 40 mg subQ daily)
[2024-05-23 14:00] VITALS: BP 121/65; PULSE 61; RESP 20; TEMP 36.2; O2SAT 91
[2024-05-23] MEDS: LATANOPROST 0.005% OP SOLN 2.5 ML BTL 1 DROP EACH EYE (18:26)
[2024-05-23] MEDS: ATORVASTATIN 40 MG TABLET PO (20:38)
[2024-05-23 22:00] VITALS: BP 135/63; PULSE 60; RESP 18; TEMP 36.3; O2SAT 98
[2024-05-24 06:00] VITALS: BP 144/68; PULSE 62; RESP 18; TEMP 36.4; O2SAT 95
[2024-05-24 06:21] LABS: Basophils Absolute Auto 0.1 K/mm3 (0.0-0.1); Basophils Percent Auto 1.2 % (0.2-1.2); Eosinophils Absolute Auto 0.1 K/mm3 (0-0.3); Eosinophils Percent Auto 2.7 % (0-4.4); Hematocrit 38.6 % (42.0-52.0); Hemoglobin 12.9 g/dL (14.0-18.0); Immature Granulocyte Absolute 0.03 K/mm3 (0.00-0.031); Immature Granulocyte Percent A 0.7 % (0-0.5); Lymphocytes Absolute Auto 1.17 K/mm3 (0.9-3.2); Lymphocytes Percent Auto 29.1 % (18.3-44.2); Mean Corpuscular HGB Conc 33.4 g/dl (32-36); Mean Corpuscular Hemoglobin 30.2 pg (26-34); Mean Corpuscular Volume 90.4 fl (80-100); Mean Platelet Volume 9.5 fl (7.4-10.4); Monocytes Absolute Auto 0.5 K/mm3 (0.1-0.6); Monocytes Percent Auto 13.4 % (2.6-8.5); Neutrophils Absolute Auto 2.1 K/mm3 (1.3-6.7); Neutrophils Percent Auto 52.9 % (45.5-73.1); Platelet Count Result 174 k/mm3 (150-375); Red Blood Count 4.27 M/mm3 (4.6-6.20); Red Cell Distribution Width 12.5 % (11.5-14.5)
[2024-05-24 06:40] LABS: Alanine Aminotransferase 54 U/L (6-50); Albumin Level 3.2 g/dL (3.5-5.1); Alkaline Phosphatase 67 U/L (38-126); Anion Gap 8 mmol/L (4-12); Aspartate Amino Transferase 48 U/L (17-59); Bilirubin,Total 0.8 mg/dL (0.2-1.3); Blood Urea Nitrogen 10 mg/dL (9-20); Calcium 8.4 mg/dL (8.4-10.2); Carbon Dioxide 28 mmol/L (22-30); Chloride 105 mmol/L (98-107); Estimated CRCL calculation 72 ml/min; Estimated Glomerular Filt Rate > 60; Glucose 75 mg/dL (65-110); Potassium 3.3 mmol/L (3.4-5.0); Sodium 141 mmol/L (137-145)
[2024-05-24] MEDS: guaiFENesin 12 HR 600 MG TABCR 1200 MG PO ×2 (09:58→20:10)
[2024-05-24] MEDS: DOXYCYCLINE HYCLATE 100 MG TABLET PO ×2 (09:58→20:10)
[2024-05-24] MEDS: CITALOPRAM HYDROBROMIDE 10 MG TABLET PO (09:58)
[2024-05-24] MEDS: MEMANTINE 10 MG TABLET PO ×2 (09:58→20:10)
[2024-05-24] MEDS: LOSARTAN POTASSIUM 100 MG TABLET PO (09:58)
[2024-05-24] MEDS: OSELTAMIVIR PHOSPHATE 30 MG CAPSULE PO ×2 (09:58→20:10)
[2024-05-24] MEDS: amLODIPine BESYLATE 5 MG TABLET PO (09:58)
[2024-05-24] MEDS: TAMSULOSIN HCL 0.4 MG CAPSULE PO (09:58)
[2024-05-24] MEDS: ATROPINE SULFATE 1% OPHTH SOLN 5 ML BOTTLE 1 DROP RIGHT EYE ×2 (09:58→20:14)
[2024-05-24] MEDS: DIVALPROEX SODIUM DR 125 MG TABEC PO ×2 (09:58→16:43)
[2024-05-24] MEDS: ENOXAPARIN 40 MG/0.4 ML SYRINGE SUB-Q (09:59)
[2024-05-24] MEDS: MULTIVITAMINS THERAPEUTIC TAB (*BKC) 1 TABLET PO (09:59)
[2024-05-24] MEDS: DIVALPROEX SODIUM DR 250 MG TABEC PO (13:02)
[2024-05-24 14:00] VITALS: BP 138/75; PULSE 58; RESP 20; TEMP 37; O2SAT 93
--- NOTE | 2024-05-24 15:10 | PM.DS ---
DS: Admitting Diagnosis Discharge Date 05/24/24 DS: Summary Time Spent with Patient Time attestation: Total time spent providing and/or coordinating discharge services: DS: Data Data Completed and Pending Labs on day of discharge: Labs from last 24 hours 05/24/24 05:56 WBC 4.0 L RBC 4.27 L Hgb 12.9 L Hct 38.6 L MCV 90.4 MCH 30.2 MCHC 33.4 RDW 12.5 Plt Count 174 MPV 9.5 Immature Gran % (Auto) 0.7 H Neut % (Auto) 52.9 Lymph % (Auto) 29.1 [place] % (Auto) 13.4 H Eos % (Auto) 2.7 Baso % (Auto) 1.2 Lymph # (Auto) 1.17 [place] # (Auto) 0.5 Eos # (Auto) 0.1 Baso # (Auto) 0.1 Abs Immat Gran (auto) 0.03 Absolute Neuts (auto) 2.1 Absolute Nucleated RBC 0.000 Nucleated RBC % 0.0 Sodium 141 Potassium 3.3 L Chloride 105 Carbon Dioxide 28 Anion Gap 8 BUN 10 Creatinine 0.69 L Estim Creat Clear Calc 72 Estimated GFR > 60 Glucose 75 Calcium 8.4 Total Bilirubin 0.8 AST 48 ALT 54 H Alkaline Phosphatase 67 Total Protein 6.0 L Albumin 3.2 L Preliminary micro results at discharge 05/19/24 18:36 Blood Culture - Preliminary Blood 05/19/24 18:39 Blood Culture - Preliminary Blood Discharge Plan Discharge Attending physician on discharge: Skip Ellington Discharging Clinician: Agatha Gaona Anticipated Discharge Date/Time: 05/23/24 09:05 Patient Disposition: NH Half-Way/Asst Living Activity: as tolerated Diet: as tolerated and heart healthy Wound Care Instructions: other - see discharge instructions Discharge Instructions: Finish all your antibiotics and antivirals as prescribed even if you are feeling better follow up with primary care doctor in 1 week. For wound care--cleanse wound with wound cleanser, pack wound with hydrofiber Ag (Aquacel Ag) and then cover with foam boarder. Patient Instructions: Antibiotic Form, Doxycycline (By mouth), Oseltamivir (By mouth), Pain Management in Older Adults (DC), Influenza (DC), Abscess (ED) Patient Language: Setswana Stand Alone Forms: General Discharge Information, Correction Discharge Follow-up/Referrals: Aaron,Mindy Perea MD [Primary Care Provider] - 1 Week Discharge Medications: New oseltamivir [Tamiflu] 30 mg Capsule 30 mg PO Q12HR Qty: 2 0RF guaifenesin [Mucus Relief ER] 600 mg Tablet Extended Release 12hr 1,200 mg PO Q12HR Qty: 20 0RF doxycycline hyclate 100 mg tablet 100 mg PO DAILY Qty: 5 0RF Continued amlodipine 5 mg tablet 5 mg PO .qam citalopram 10 mg tablet 10 mg PO DAILY divalproex 250 mg tablet,delayed release (DR/EC) 250 mg PO DAILY@1200 multivitamin with folic acid [Tab-A-Luis] 400 mcg tablet 1 tablet PO DAILY divalproex 125 mg tablet,delayed release (DR/EC) 125 mg PO BID memantine 10 mg tablet 10 mg PO .q12hr atorvastatin 40 mg tablet 40 mg PO QHS donepezil [Aricept] 23 mg tablet 23 mg PO QHS ramelteon 8 mg tablet 8 mg PO HS atropine 1 % drops 1 drp RIGHT EYE BID Qty: 15 0RF losartan 100 mg tablet 100 mg PO DAILY Qty: 90 1RF tamsulosin 0.4 mg capsule 0.4 mg PO DAILY Qty: 90 1RF latanoprost 0.005 % drops 1 drp EACH EYE QPM Qty: 7.5 0RF Date of admission: 05/21/24 10:18 Primary Care Provider: Aaron,Mindy Perea Admitting Provider: Cyndee Davis Attending physician on admission: Agatha Gaona Condition: Improved
[2024-05-24] MEDS: LATANOPROST 0.005% OP SOLN 2.5 ML BTL 1 DROP EACH EYE (16:44)
--- NOTE | 2024-05-24 18:21 | P.PNIM_ITS ---
Progress Note: A&P Assessment and Plan (1) Influenza A: Code(s): J10.1 - Influenza due to other identified influenza virus with other respiratory manifestations Status: Acute Assessment and Plan: * Respiratory panel positive for influenza A * Continue Tamiflu * Chest x-ray showed mild pulmonary vascular congestion without focal infiltrate or effusion * Continue guaifenesin * Will start prednisone 40 mg daily * Pep therapy and incentive spirometry ordered * Will obtain echocardiogram 05/21 * echocardiogram shown normal LV systolic function with an ejection fraction of 60-65%, abnormal diastolic function, severe aortic valve sclerosis, moderate aortic valve stenosis, mild pulmonary hypertension * continue incentive spirometry and pep therapy * continue Tamiflu * stop prednisone as it is not recommended for influenza patients 05/22 * continue Tamiflu * continue incentive spirometry and pep therapy 05/23 * No change to current treatment plan 05/24 * Finishing Tamiflu tonight (2) Abscess: Code(s): L02.91 - Cutaneous abscess, unspecified Status: Acute Assessment and Plan: * Patient had abscess on his back, I&D while in the ED * Wound nurse consult * Bandemia noted * Blood cultures obtained and pending * Patient was not treated with antibiotics while in the ED or when admitted * Will treat with vancomycin for now 05/21 * pack with Hydrofiber with AG rope and cover with Mepilex daily * continue vancomycin for now * blood cultures showing no growth to date on preliminary read 05/22 * vancomycin discontinued * doxycycline oral ordered 05/23 * Continue dressing changes * Continue doxycycline (3) Dementia: Qualifiers: Dementia type: Alzheimer's Alzheimer's disease onset: late onset Dementia severity: severe Dementia behavioral or psychological symptom: unspecified whether behavioral, psychotic, or mood disturbance or anxiety Qualified Code(s): G30.1 - Alzheimer's disease with late onset; F02.C0 - Dementia in other diseases classified elsewhere, severe, without behavioral disturbance, psychotic disturbance, mood disturbance, and anxiety Code(s): F03.90 - Unspecified dementia, unspecified severity, without behavioral disturbance, psychotic disturbance, mood disturbance, and anxiety Status: Acute Assessment and Plan: * Continue Namenda * Head CT was negative for any acute intracranial hemorrhage or suspicious mass-effect, shown decreased attenuation within periventricular white matter secondary to microvascular ischemic disease 05/21 * no change to current treatment plan 05/23 * Sitter at bedside 2/10 * No sitter available today, restless and trying to get up out of the bed * Keep patient near nurse's station * Utilize bed alarm and chair alarms * Will give Seroquel tonight for sleep/restlessness * Case management working on placement (4) Essential (primary) hypertension: Code(s): I10 - Essential (primary) hypertension Status: Acute Assessment and Plan: * Blood pressure ranging 137/70 to 155/67 * Continue amlodipine 05/21 * no change to current treatment plan Time Spent With Patient Time with patient: Greater than 35 minutes Subjective Date/time seen: 05/24/24 18:21 Interval history: Interval history: This is an 83-year-old male with a significant past medical history of dementia, hypertension, glaucoma, hepatic steatosis, who presented to the hospital with in decreased lethargy and increased confusion from his memory care center. Workup in the hospital included a right knee x-ray which did not show any acute osseous findings. Head CT was negative for any acute intracranial hemorrhage or suspicious mass-effect. Chest x-ray showed mild pulmonary vascular congestion without focal infiltrate or effusion. Initial labs showed a white blood cell count of 10.6, band neutrophils 10, anion gap 14, lactic acid 2.6> 0.9. UA was obtained which showed 1+ urine protein, trace urine ketone, 1+ urine blood, 11- 20 urine RBC. Urine drug screen was negative. Respiratory panel was positive for influenza A. Blood cultures were obtained and pending. EKG showed sinus rhythm with a right bundle branch block, left anterior fascicular block, with a rate of 70, QTC 425. Patient was given 2.5 L normal saline, Tamiflu and was started on IV fluids at 100 mL/hour while in the ED. Subjective: Patient is restless and trying to get up out of the bed when I came to visit. He is alert and oriented x1. Labs and imaging reviewed Review of Systems Review of Systems: Unable to obtain due to patient's history of dementia Exam Narrative: General: In no acute distress, well nourished Cardiac: Normal S1 and S2. mild murmur, No gallops or friction rubs, peripheral pulses intact. Respiratory: Currently wheezing with rhonchi throughout all lung amezcua bilaterally, he does not appear to be in any acute respiratory distress or use of accessory muscles to breathe. Currently on room air. Gastrointestinal: soft, non-distended, non-tender, normoactive bowel sounds. : voiding without difficulty. Neuro: Alert to voice and oriented x1 Objective Data Vital Signs Vital Signs: Vital Signs - 24 hr 05/23/24 20:00 05/23/24 22:00 05/24/24 06:00 Temperature 97.3 F L 97.6 F Pulse Rate 60 62 Respiratory Rate 18 18 Blood Pressure 135/63 144/68 H Pulse Oximetry 98 95 Oxygen Delivery Room Air 05/24/24 08:00 Temperature Pulse Rate Respiratory Rate Blood Pressure Pulse Oximetry Oxygen Delivery Room Air Intake/Output Intake/Output: Intake & Output 05/21/24 05/22/24 05/23/24 05/24/24 23:59 23:59 23:59 23:59 Intake Total 1530 1979 490 473 Output Total 375 550 0 Balance 1155 1979 -60 473 Meds/Results Medications: Active Medications Generic Name Dose Route Start Last Admin Trade Name Freq PRN Reason Stop Dose Admin Acetaminophen 650 mg 05/19/24 23:00 05/22/24 23:12 Acetaminophen 325 Mg Tablet PO 650 mg Q4H PRN Administration Mild Pain (1-3) or Fever Amlodipine Besylate 5 mg 05/20/24 11:05 05/24/24 09:58 Amlodipine Besylate 5 Mg Tablet PO 5 mg QAM TOMMY Administration Atorvastatin Calcium 40 mg 05/20/24 21:00 05/23/24 20:38 Atorvastatin 40 Mg Tablet PO 40 mg QHS TOMMY Administration Atropine Sulfate 1 drop 05/20/24 11:05 05/24/24 09:58 Atropine Sulfate 1% Oph Soln 5 Ml Bottle RIGHT EYE 1 drop Q12HR TOMMY Administration Citalopram Hydrobromide 10 mg 05/20/24 11:05 05/24/24 09:58 Citalopram Hydrobromide 10 Mg Tablet PO 10 mg DAILY TOMMY Administration Divalproex Sodium 125 mg 05/20/24 17:00 05/24/24 16:[address] 125 Mg Tabec PO 125 mg BID TOMMY Administration Divalproex Sodium 250 mg 05/20/24 12:00 05/24/24 13:[address] 250 Mg Tabec PO 250 mg DAILY@1200 [facility] Administration Doxycycline Hyclate 100 mg 05/22/24 21:00 05/24/24 09:58 Doxycycline Hyclate 100 Mg Tablet PO 100 mg Q12HR TOMMY Administration Enoxaparin Sodium 40 mg 05/20/24 09:00 05/24/24 09:59 Enoxaparin 40 Mg/0.4 Ml Syringe SUB-Q 40 mg DAILY TOMMY Administration Guaifenesin 1,200 mg 05/20/24 11:10 05/24/24 09:58 Guaifenesin 12 Hr 600 Mg Tabcr PO 1,200 mg Q12HR TOMMY Administration Latanoprost 1 drop 05/20/24 18:00 05/24/24 16:44 Latanoprost 0.005% Op Soln 2.5 Ml Btl EACH EYE 1 drop QPM TOMMY Administration Losartan Potassium 100 mg 05/20/24 11:05 05/24/24 09:58 Losartan Potassium 100 Mg Tablet PO 100 mg DAILY TOMMY Administration Memantine 10 mg 05/20/24 11:00 05/24/24 09:58 Memantine 10 Mg Tablet PO 10 mg Q12HR TOMMY Administration Multivitamins Therapeutic 1 tablet 05/20/24 11:10 05/24/24 09:59 Multivitamins Therapeutic Tab (*Bkc) PO 1 tablet DAILY TOMMY Administration Ondansetron HCl 4 mg 05/20/24 11:00 Ondansetron Inj 4 Mg/2 Ml Vial IV PUSH Q6H PRN Nausea And Vomiting Oseltamivir Phosphate 30 mg 05/19/24 22:05 05/24/24 09:58 Oseltamivir Phosphate 30 Mg Capsule PO 05/24/24 22:04 30 mg Q12HR TOMMY Administration Tamsulosin HCl 0.4 mg 05/20/24 11:10 05/24/24 09:58 Tamsulosin Hcl 0.4 Mg Capsule PO 0.4 mg DAILY TOMMY Administration Radiology Results: ITS Impressions Head CT 05/19/24 18:03 Impression: No acute intracranial hemorrhage or suspicious mass effect. Chest X-Ray 05/19/24 18:12 IMPRESSION: Mild pulmonary vascular congestion, without focal infiltrate or effusion. Labs Labs: Laboratory Results - last 24 hr 05/24/24 05:56 WBC 4.0 L RBC 4.27 L Hgb 12.9 L Hct 38.6 L MCV 90.4 MCH 30.2 MCHC 33.4 RDW 12.5 Plt Count 174 MPV 9.5 Immature Gran % (Auto) 0.7 H Neut % (Auto) 52.9 Lymph % (Auto) 29.1 [place] % (Auto) 13.4 H Eos % (Auto) 2.7 Baso % (Auto) 1.2 Lymph # (Auto) 1.17 [place] # (Auto) 0.5 Eos # (Auto) 0.1 Baso # (Auto) 0.1 Abs Immat Gran (auto) 0.03 Absolute Neuts (auto) 2.1 Absolute Nucleated RBC 0.000 Nucleated RBC % 0.0 Sodium 141 Potassium 3.3 L Chloride 105 Carbon Dioxide 28 Anion Gap 8 BUN 10 Creatinine 0.69 L Estim Creat Clear Calc 72 Estimated GFR > 60 Glucose 75 Calcium 8.4 Total Bilirubin 0.8 AST 48 ALT 54 H Alkaline Phosphatase 67 Total Protein 6.0 L Albumin 3.2 L Quality VTE Prophylaxis VTE prophylaxis: pharmacologic ordered (Lovenox 40 mg subQ daily)
[2024-05-24] MEDS: ATORVASTATIN 40 MG TABLET PO (20:10)
[2024-05-24] MEDS: QUEtiapine FUMARATE 25 MG TABLET 50 MG PO (20:10)
[2024-05-24 22:00] VITALS: BP 125/76; PULSE 60; RESP 18; TEMP 36.5; O2SAT 95
[2024-05-25 06:00] VITALS: BP 130/72; PULSE 61; RESP 18; TEMP 36.2; O2SAT 96
[2024-05-25 08:03] LABS: Glucose Point of Care 75 mg/dl (65-105)
[2024-05-25 08:52] LABS: Basophils Percent Auto 0.5 % (0.2-1.2); Eosinophils Absolute Auto 0.1 K/mm3 (0-0.3); Eosinophils Percent Auto 2.4 % (0-4.4); Hematocrit 37.8 % (42.0-52.0); Hemoglobin 12.5 g/dL (14.0-18.0); Immature Granulocyte Absolute 0.03 K/mm3 (0.00-0.031); Immature Granulocyte Percent A 0.5 % (0-0.5); Lymphocytes Absolute Auto 1.21 K/mm3 (0.9-3.2); Lymphocytes Percent Auto 21.1 % (18.3-44.2); Mean Corpuscular HGB Conc 33.1 g/dl (32-36); Mean Corpuscular Volume 90.9 fl (80-100); Mean Platelet Volume 9.4 fl (7.4-10.4); Monocytes Absolute Auto 0.6 K/mm3 (0.1-0.6); Monocytes Percent Auto 9.9 % (2.6-8.5); Neutrophils Absolute Auto 3.8 K/mm3 (1.3-6.7); Neutrophils Percent Auto 65.6 % (45.5-73.1); Platelet Count Result 187 k/mm3 (150-375); Red Blood Count 4.16 M/mm3 (4.6-6.20); Red Cell Distribution Width 12.4 % (11.5-14.5); White Blood Count 5.7 K/mm3 (4.5-10.0)
[2024-05-25 08:54] LABS: Alanine Aminotransferase 72 U/L (6-50); Albumin Level 3.2 g/dL (3.5-5.1); Alkaline Phosphatase 67 U/L (38-126); Anion Gap 5 mmol/L (4-12); Aspartate Amino Transferase 61 U/L (17-59); Bilirubin,Total 0.8 mg/dL (0.2-1.3); Blood Urea Nitrogen 9 mg/dL (9-20); Calcium 8.5 mg/dL (8.4-10.2); Carbon Dioxide 30 mmol/L (22-30); Chloride 106 mmol/L (98-107); Estimated CRCL calculation 64 ml/min; Estimated Glomerular Filt Rate > 60; Glucose 78 mg/dL (65-110); Potassium 3.2 mmol/L (3.4-5.0); Sodium 141 mmol/L (137-145)
[2024-05-25 09:54] LABS: Magnesium 1.9 mg/dL (1.6-2.3)
[2024-05-25 11:37] LABS: Glucose Point of Care 71 mg/dl (65-105)
[2024-05-25] MEDS: CITALOPRAM HYDROBROMIDE 10 MG TABLET PO (12:04)
[2024-05-25] MEDS: DIVALPROEX SODIUM DR 125 MG TABEC PO ×2 (12:04→17:09)
[2024-05-25] MEDS: amLODIPine BESYLATE 5 MG TABLET PO (12:04)
[2024-05-25] MEDS: ATROPINE SULFATE 1% OPHTH SOLN 5 ML BOTTLE 1 DROP RIGHT EYE ×2 (12:04→21:25)
[2024-05-25] MEDS: DOXYCYCLINE HYCLATE 100 MG TABLET PO ×2 (12:05→21:24)
[2024-05-25] MEDS: MULTIVITAMINS THERAPEUTIC TAB (*BKC) 1 TABLET PO (12:05)
[2024-05-25] MEDS: TAMSULOSIN HCL 0.4 MG CAPSULE PO (12:05)
[2024-05-25] MEDS: LOSARTAN POTASSIUM 100 MG TABLET PO (12:05)
[2024-05-25] MEDS: MEMANTINE 10 MG TABLET PO ×2 (12:05→21:24)
[2024-05-25] MEDS: ENOXAPARIN 40 MG/0.4 ML SYRINGE SUB-Q (12:05)
[2024-05-25] MEDS: guaiFENesin 12 HR 600 MG TABCR 1200 MG PO ×2 (12:05→21:23)
[2024-05-25] MEDS: POTASSIUM CHLORIDE 20 MEQ ER TABLET 40 MEQ PO (12:08)
--- NOTE | 2024-05-25 12:34 | P.PNIM_ITS ---
Progress Note: A&P Assessment and Plan (1) Influenza A: Code(s): J10.1 - Influenza due to other identified influenza virus with other respiratory manifestations Status: Acute Assessment and Plan: * Respiratory panel positive for influenza A * Continue Tamiflu * Chest x-ray showed mild pulmonary vascular congestion without focal infiltrate or effusion * Continue guaifenesin * Will start prednisone 40 mg daily * Pep therapy and incentive spirometry ordered * Will obtain echocardiogram 05/21 * echocardiogram shown normal LV systolic function with an ejection fraction of 60-65%, abnormal diastolic function, severe aortic valve sclerosis, moderate aortic valve stenosis, mild pulmonary hypertension * continue incentive spirometry and pep therapy * continue Tamiflu * stop prednisone as it is not recommended for influenza patients 05/22 * continue Tamiflu * continue incentive spirometry and pep therapy 05/23 * No change to current treatment plan 05/24 * Finishing Tamiflu tonight 05/25 * Completed Tamiflu * continue incentive spirometry and pep therapy * No breathing issues at present. (2) Abscess: Code(s): L02.91 - Cutaneous abscess, unspecified Status: Acute Assessment and Plan: * Patient had abscess on his back, I&D while in the ED * Wound nurse consult * Bandemia noted * Blood cultures obtained and pending * Patient was not treated with antibiotics while in the ED or when admitted * Will treat with vancomycin for now 05/21 * pack with Hydrofiber with AG rope and cover with Mepilex daily * continue vancomycin for now * blood cultures showing no growth to date on preliminary read 05/22 * vancomycin discontinued * doxycycline oral ordered 05/23 * Continue dressing changes * Continue doxycycline 05/25 * Continue dressing changes * Continue doxycycline * Awaiting placement (3) Dementia: Qualifiers: Dementia type: Alzheimer's Alzheimer's disease onset: late onset Dementia severity: severe Dementia behavioral or psychological symptom: unspecified whether behavioral, psychotic, or mood disturbance or anxiety Qualified Code(s): G30.1 - Alzheimer's disease with late onset; F02.C0 - Dementia in other diseases classified elsewhere, severe, without behavioral disturbance, psychotic disturbance, mood disturbance, and anxiety Code(s): F03.90 - Unspecified dementia, unspecified severity, without behavioral disturbance, psychotic disturbance, mood disturbance, and anxiety Status: Acute Assessment and Plan: * Continue Namenda * Head CT was negative for any acute intracranial hemorrhage or suspicious mass- effect, shown decreased attenuation within periventricular white matter secondary to microvascular ischemic disease 05/21 * no change to current treatment plan 05/23 * Sitter at bedside 05/24 * No sitter available today, restless and trying to get up out of the bed * Keep patient near nurse's station * Utilize bed alarm and chair alarms * Will give Seroquel tonight for sleep/restlessness * Case management working on placement 05/25 * Calm at present * Keep patient near nurse's station * Utilize bed alarm and chair alarms * Continue Seroquel for sleep/restlessness * Case management working on placement (4) Essential (primary) hypertension: Code(s): I10 - Essential (primary) hypertension Status: Acute Assessment and Plan: * Blood pressure ranging today from 109/59 to 130/72. * Continue amlodipine 05/21 * no change to current treatment plan (5) Hypokalemia: Code(s): E87.6 - Hypokalemia Status: Acute Assessment and Plan: * Potassium 3.2. * Potassium Chloride 40 meq PO x1. * Monitor labs. Subjective Date/time seen: 05/25/24 12:34 Interval history: Patient sitting up in chair about to eat lunch. Patient denies chest pain, palpitations, headache, dizziness, nausea, or vomiting. Review of Systems Review of Systems: All systems reviewed & are unremarkable except as noted in HPI and below Exam Const: General: comfortable and no acute distress Resp: Effort & Inspection: normal respiratory effort Auscultation: diminished lung sounds GI: GI Palp: Yes Soft to palpation Auscultation: normal bowel sounds Extrem: General: no pedal edema Psych: Affect: normal affect Other: Alert to self, pleasant, and cooperative. Objective Data Vital Signs Vital Signs: Vital Signs - 24 hr 05/24/24 14:00 05/24/24 22:00 05/25/24 06:00 Temperature 98.6 F 97.7 F 97.2 F L Pulse Rate 58 L 60 61 Respiratory Rate 20 18 18 Blood Pressure 138/75 125/76 130/72 Pulse Oximetry 93 95 96 Intake/Output Intake/Output: Intake & Output 05/22/24 05/23/24 05/24/24 05/25/24 23:59 23:59 23:59 23:59 Intake Total 5129 032 1349 200 Output Total 550 0 Balance 1979 1213 200 Meds/Results Medications: Active Medications Generic Name Dose Route Start Last Admin Trade Name Freq PRN Reason Stop Dose Admin Acetaminophen 650 mg 05/19/24 23:00 05/22/24 23:12 Acetaminophen 325 Mg Tablet PO 650 mg Q4H PRN Administration Mild Pain (1-3) or Fever Amlodipine Besylate 5 mg 05/20/24 11:05 05/25/24 12:04 Amlodipine Besylate 5 Mg Tablet PO 5 mg QAM TOMMY Administration Atorvastatin Calcium 40 mg 05/20/24 21:00 05/24/24 20:10 Atorvastatin 40 Mg Tablet PO 40 mg QHS TOMMY Administration Atropine Sulfate 1 drop 05/20/24 11:05 05/25/24 12:04 Atropine Sulfate 1% Ophth Soln 5 Ml Bottle RIGHT EYE 1 drop Q12HR TOMMY Administration Citalopram Hydrobromide 10 mg 05/20/24 11:05 05/25/24 12:04 Citalopram Hydrobromide 10 Mg Tablet PO 10 mg DAILY TOMMY Administration Divalproex Sodium 125 mg 05/20/24 17:00 05/25/24 12:[address] 125 Mg Tabec PO 125 mg BID TOMMY Administration Divalproex Sodium 250 mg 05/20/24 12:00 05/25/24 12:[address] 250 Mg Tabec PO Not Given DAILY@1200 [facility] Doxycycline Hyclate 100 mg 05/22/24 21:00 05/25/24 12:05 Doxycycline Hyclate 100 Mg Tablet PO 05/25/24 21:01 100 mg Q12HR TOMMY Administration Enoxaparin Sodium 40 mg 05/20/24 09:00 05/25/24 12:05 Enoxaparin 40 Mg/0.4 Ml Syringe SUB-Q 40 mg DAILY TOMMY Administration Guaifenesin 1,200 mg 05/20/24 11:10 05/25/24 12:05 Guaifenesin 12 Hr 600 Mg Tabcr PO 1,200 mg Q12HR TOMMY Administration Latanoprost 1 drop 05/20/24 18:00 05/24/24 16:44 Latanoprost 0.005% Op Soln 2.5 Ml Btl EACH EYE 1 drop QPM TOMMY Administration Losartan Potassium 100 mg 05/20/24 11:05 05/25/24 12:05 Losartan Potassium 100 Mg Tablet PO 100 mg DAILY TOMMY Administration Memantine 10 mg 05/20/24 11:00 05/25/24 12:05 Memantine 10 Mg Tablet PO 10 mg Q12HR TOMMY Administration Multivitamins Therapeutic 1 tablet 05/20/24 11:10 05/25/24 12:05 Multivitamins Therapeutic Tab (*Bkc) PO 1 tablet DAILY TOMMY Administration Ondansetron HCl 4 mg 05/20/24 11:00 Ondansetron Inj 4 Mg/2 Ml Vial IV PUSH Q6H PRN Nausea And Vomiting Quetiapine Fumarate 50 mg 05/24/24 21:00 05/24/24 20:10 Quetiapine Fumarate 25 Mg Tablet PO 50 mg HS TOMMY Administration Tamsulosin HCl 0.4 mg 05/20/24 11:10 05/25/24 12:05 Tamsulosin Hcl 0.4 Mg Capsule PO 0.4 mg DAILY TOMMY Administration Radiology Results: ITS Impressions Head CT 05/19/24 18:03 Impression: No acute intracranial hemorrhage or suspicious mass effect. Chest X-Ray 05/19/24 18:12 IMPRESSION: Mild pulmonary vascular congestion, without focal infiltrate or effusion. Labs Labs: Laboratory Results - last 24 hr 05/25/24 05/25/24 05/25/24 07:59 08:35 11:30 WBC 5.7 RBC 4.16 L Hgb 12.5 L Hct 37.8 L MCV 90.9 MCH 30.0 MCHC 33.1 RDW 12.4 Plt Count 187 MPV 9.4 Immature Gran % (Auto) 0.5 Neut % (Auto) 65.6 Lymph % (Auto) 21.1 [place] % (Auto) 9.9 H Eos % (Auto) 2.4 Baso % (Auto) 0.5 Lymph # (Auto) 1.21 [place] # (Auto) 0.6 Eos # (Auto) 0.1 Baso # (Auto) 0.0 Abs Immat Gran (auto) 0.03 Absolute Neuts (auto) 3.8 Absolute Nucleated RBC 0.000 Nucleated RBC % 0.0 Sodium 141 Potassium 3.2 L Chloride 106 Carbon Dioxide 30 Anion Gap 5 BUN 9 Creatinine 0.79 Estim Creat Clear Calc 64 Estimated GFR > 60 Glucose 78 POC Capillary Glucose 75 71 Calcium 8.5 Magnesium 1.9 Total Bilirubin 0.8 AST 61 H ALT 72 H Alkaline Phosphatase 67 Total Protein 6.0 L Albumin 3.2 L Quality VTE Prophylaxis VTE prophylaxis: pharmacologic ordered (Lovenox 40 mg subQ daily)
[2024-05-25 13:50] VITALS: BP 109/59; PULSE 65; RESP 18; TEMP 36; O2SAT 95
[2024-05-25] MEDS: LATANOPROST 0.005% OP SOLN 2.5 ML BTL 1 DROP EACH EYE (17:10)
[2024-05-25 21:20] VITALS: BP 101/52; PULSE 58; RESP 19; TEMP 36.6; O2SAT 95
[2024-05-25] MEDS: ATORVASTATIN 40 MG TABLET PO (21:24)
[2024-05-25] MEDS: QUEtiapine FUMARATE 25 MG TABLET 50 MG PO (21:24)
[2024-05-26 06:00] VITALS: BP 128/52; PULSE 50; RESP 16; TEMP 36.3; O2SAT 96
[2024-05-26 08:27] LABS: Basophils Absolute Auto 0.1 K/mm3 (0.0-0.1); Basophils Percent Auto 0.8 % (0.2-1.2); Eosinophils Absolute Auto 0.2 K/mm3 (0-0.3); Eosinophils Percent Auto 3.7 % (0-4.4); Hemoglobin 14.1 g/dL (14.0-18.0); Immature Granulocyte Absolute 0.07 K/mm3 (0.00-0.031); Immature Granulocyte Percent A 1.2 % (0-0.5); Lymphocytes Absolute Auto 1.26 K/mm3 (0.9-3.2); Mean Corpuscular HGB Conc 32.8 g/dl (32-36); Mean Corpuscular Hemoglobin 30.1 pg (26-34); Mean Corpuscular Volume 91.7 fl (80-100); Mean Platelet Volume 9.3 fl (7.4-10.4); Monocytes Absolute Auto 0.6 K/mm3 (0.1-0.6); Monocytes Percent Auto 10.2 % (2.6-8.5); Neutrophils Absolute Auto 3.8 K/mm3 (1.3-6.7); Neutrophils Percent Auto 63.1 % (45.5-73.1); Platelet Count Result 204 k/mm3 (150-375); Red Blood Count 4.69 M/mm3 (4.6-6.20); Red Cell Distribution Width 12.7 % (11.5-14.5)
[2024-05-26 08:54] LABS: Alanine Aminotransferase 104 U/L (6-50); Albumin Level 3.7 g/dL (3.5-5.1); Alkaline Phosphatase 72 U/L (38-126); Anion Gap 7 mmol/L (4-12); Aspartate Amino Transferase 81 U/L (17-59); Bilirubin,Total 0.9 mg/dL (0.2-1.3); Blood Urea Nitrogen 12 mg/dL (9-20); Carbon Dioxide 28 mmol/L (22-30); Chloride 106 mmol/L (98-107); Estimated CRCL calculation 56 ml/min; Estimated Glomerular Filt Rate > 60; Glucose 77 mg/dL (65-110); Potassium 3.7 mmol/L (3.4-5.0); Sodium 141 mmol/L (137-145)
[2024-05-26] MEDS: TAMSULOSIN HCL 0.4 MG CAPSULE PO (08:59)
[2024-05-26] MEDS: LOSARTAN POTASSIUM 100 MG TABLET PO (09:00)
[2024-05-26] MEDS: guaiFENesin 12 HR 600 MG TABCR 1200 MG PO (09:00)
[2024-05-26] MEDS: MEMANTINE 10 MG TABLET PO (09:00)
[2024-05-26] MEDS: CITALOPRAM HYDROBROMIDE 10 MG TABLET PO (09:00)
[2024-05-26] MEDS: amLODIPine BESYLATE 5 MG TABLET PO (09:00)
[2024-05-26] MEDS: MULTIVITAMINS THERAPEUTIC TAB (*BKC) 1 TABLET PO (09:00)
[2024-05-26] MEDS: DIVALPROEX SODIUM DR 125 MG TABEC PO (09:00)
[2024-05-26] MEDS: ENOXAPARIN 40 MG/0.4 ML SYRINGE SUB-Q (09:02)
--- NOTE | 2024-05-26 10:49 | PM.DS ---
DS: Admitting Diagnosis Discharge Date 05/26/2024 Admitting Diagnosis Upper respiratory infection DS: Discharge Diagnosis Discharge Diagnosis (1) Influenza A: Code(s): J10.1 - Influenza due to other identified influenza virus with other respiratory manifestations Status: Acute (2) Abscess: Code(s): L02.91 - Cutaneous abscess, unspecified Status: Acute (3) Dementia: Qualifiers: Alzheimer's disease onset: late onset Dementia behavioral or psychological symptom: unspecified whether behavioral, psychotic, or mood disturbance or anxiety Dementia severity: severe Dementia type: Alzheimer's Qualified Code(s): G30.1 - Alzheimer's disease with late onset; F02.C0 - Dementia in other diseases classified elsewhere, severe, without behavioral disturbance, psychotic disturbance, mood disturbance, and anxiety Code(s): F03.90 - Unspecified dementia, unspecified severity, without behavioral disturbance, psychotic disturbance, mood disturbance, and anxiety Status: Acute (4) Hypokalemia: Code(s): E87.6 - Hypokalemia Status: Acute DS: Summary Hospital Course Hospital Course: This is an 83-year-old male with a significant past medical history of dementia, hypertension, glaucoma, hepatic steatosis, who presented to the hospital with in decreased lethargy and increased confusion from his memory care center. Workup in the hospital included a right knee x-ray which did not show any acute osseous findings. Head CT was negative for any acute intracranial hemorrhage or suspicious mass-effect. Chest x-ray showed mild pulmonary vascular congestion without focal infiltrate or effusion. Initial labs showed a white blood cell count of 10.6, band neutrophils 10, anion gap 14, lactic acid 2.6> 0.9. UA was obtained which showed 1+ urine protein, trace urine ketone, 1+ urine blood, 11-20 urine RBC. Urine drug screen was negative. Respiratory panel was positive for influenza A. Blood cultures were obtained. EKG showed sinus rhythm with a right bundle branch block, left anterior fascicular block, with a rate of 70, QTC 425. Patient was given 2.5 L normal saline, Tamiflu and was started on IV fluids at 100 mL/hour while in the ED. Echocardiogram: Summary 1. Complete two-dimensional, color flow and Doppler transthoracic echocardiogram is performed. 2. Left ventricular chamber dimension is normal. 3. Left ventricular systolic function is normal, estimated at 60-65%. 4. The left ventricular diastolic function is abnormal. 5. E/e' 11 is mildly elevated. 6. Left atrial chamber dimension is mildly enlarged. 7. There is severe aortic valve sclerosis. 8. There is moderate aortic valve stenosis with a peak velocity of 311 cm/s, mean gradient of 16 mmHg, and aortic valve area of 1.4 cm2. 9. There is mild aortic valve regurgitation. 10. There is mild mitral valve regurgitation. 11. There is mild to moderate tricuspid valve regurgitation. 12. Mild pulmonary hypertension, estimated pulmonary arterial systolic pressure is 45 mmHg. 13. The aortic root size at the sinus of Valsalva is mildly dilated at 4.2 cm. 14. Dilated inferior vena cava with >50% collapse upon inspiration consistent with elevated right atrial pressure, 10 mmHg. Patient completed Tamiflu and Doxycycline course. Wound care to abscess. HH at discharge. WBC 6.0. Blood cultures no growth. Status at Discharge Functional status at discharge: uses cane/walker Overall status at discharge: patient is not back to baseline Time Spent with Patient Time attestation: Total time spent providing and/or coordinating discharge services: Time spent: Greater than 30 minutes Exam Const: General: comfortable and no acute distress Resp: Effort & Inspection: normal respiratory effort Auscultation: diminished lung sounds Cardio: Rate: regular rate Rhythm: regular rhythm GI: GI Palp: Yes Soft to palpation Auscultation: normal bowel sounds Skin: Other: Abscess wound improving. Allevyn over area. Extrem: General: no pedal edema Psych: Affect: normal affect Other: Alert to self, pleasant, and cooperative. DS: Data Data Completed and Pending Labs on day of discharge: Labs from last 24 hours 05/26/24 05/25/24 08:06 11:30 WBC 6.0 RBC 4.69 Hgb 14.1 Hct 43.0 MCV 91.7 MCH 30.1 MCHC 32.8 RDW 12.7 Plt Count 204 MPV 9.3 Immature Gran % (Auto) 1.2 H Neut % (Auto) 63.1 Lymph % (Auto) 21.0 [place] % (Auto) 10.2 H Eos % (Auto) 3.7 Baso % (Auto) 0.8 Lymph # (Auto) 1.26 [place] # (Auto) 0.6 Eos # (Auto) 0.2 Baso # (Auto) 0.1 Abs Immat Gran (auto) 0.07 H Absolute Neuts (auto) 3.8 Absolute Nucleated RBC 0.000 Nucleated RBC % 0.0 Sodium 141 Potassium 3.7 Chloride 106 Carbon Dioxide 28 Anion Gap 7 BUN 12 Creatinine 0.90 Estim Creat Clear Calc 56 Estimated GFR > 60 Glucose 77 POC Capillary Glucose 71 Calcium 9.0 Total Bilirubin 0.9 AST 81 H ALT 104 H Alkaline Phosphatase 72 Total Protein 7.0 Albumin 3.7 Discharge Plan Discharge Attending physician on discharge: Terrance Coffey Discharging Clinician: Menhaz Mattson Anticipated Discharge Date/Time: 05/23/24 09:05 Patient Disposition: Home Health Service Activity: as tolerated Diet: as tolerated and heart healthy Wound Care Instructions: other - see discharge instructions Discharge Instructions: follow up with primary care doctor in 1 week. For wound care--cleanse wound with wound cleanser, pack wound with hydrofiber Ag (Aquacel Ag) and then cover with foam boarder. Per Care Coordination. Patient to have [facility] for outdoor emergency care technician, PT/OT eval and treat [phone]. They will contact patient to arrange first visit. Patient Instructions: Antibiotic Form, Pain Management in Older Adults (DC), Influenza (DC), Abscess (ED) Patient Language: Sudanese Stand Alone Forms: General Discharge Information, Intermediate Discharge Follow-up/Referrals: Aaron,Mindy Perea MD [Primary Care Provider] - 1 Week Discharge Medications: New guaifenesin [Mucus Relief ER] 600 mg Tablet Extended Release 12hr 1,200 mg PO Q12HR Qty: 20 0RF Continued amlodipine 5 mg tablet 5 mg PO .qam citalopram 10 mg tablet 10 mg PO DAILY divalproex 250 mg tablet,delayed release (DR/EC) 250 mg PO DAILY@1200 multivitamin with folic acid [Tab-A-Luis] 400 mcg tablet 1 tablet PO DAILY divalproex 125 mg tablet,delayed release (DR/EC) 125 mg PO BID memantine 10 mg tablet 10 mg PO .q12hr atorvastatin 40 mg tablet 40 mg PO QHS donepezil [Aricept] 23 mg tablet 23 mg PO QHS ramelteon 8 mg tablet 8 mg PO HS atropine 1 % drops 1 drp RIGHT EYE BID Qty: 15 0RF losartan 100 mg tablet 100 mg PO DAILY Qty: 90 1RF tamsulosin 0.4 mg capsule 0.4 mg PO DAILY Qty: 90 1RF latanoprost 0.005 % drops 1 drp EACH EYE QPM Qty: 7.5 0RF Date of admission: 05/21/24 10:18 Primary Care Provider: Aaron,Mindy Perea Admitting Provider: Cyndee Davis Attending physician on admission: Agatha Gaona Condition: Improved Hospitalist MIPS Heart Failure (Exclusion) Patient has history of Heart Transplant or Left Ventricular Assistive Device?: No IF YES, STOP HERE Heart Failure (Qualifier) Patient has current or prior documentation of LVEF less than or equal to 40%, or mod/servere depressed LVSF?: No IF NO, STOP HERE
[2024-05-26] MEDS: DIVALPROEX SODIUM DR 250 MG TABEC PO (12:59)
[2024-05-26 14:00] VITALS: BP 114/55; PULSE 70; RESP 16; TEMP 36.4; O2SAT 97
== END 2024-05-26 15:55 | disposition home health service (06) | DRG 603 ==
LOC: ANHED 22:19 → ANH3MEDSUR 23:35
PROVIDERS: Nurse Practitioner Acute Care; Admitting Provider Internal Medicine; Emergency Provider Emergency Medicine; PCP Family Medicine; Visit Provider Nurse Practitioner Family
DX: L02.212 Cutaneous abscess of back [any part, except buttock and flank] (principal); J10.1 Influenza due to other identified influenza virus with other respiratory manifestations; E87.6 Hypokalemia; E55.9 Vitamin D deficiency, unspecified; E78.2 Mixed hyperlipidemia; G30.1 Alzheimer's disease with late onset; F02.C0 Dementia in other diseases classified elsewhere, severe, without behavioral disturbance, psychotic disturbance, mood disturbance, and anxiety; H40.9 Unspecified glaucoma; I10 Essential (primary) hypertension; K76.0 Fatty (change of) liver, not elsewhere classified; M19.90 Unspecified osteoarthritis, unspecified site; Z98.41 Cataract extraction status, right eye; Z98.42 Cataract extraction status, left eye; Z96.1 Presence of intraocular lens; Z87.891 Personal history of nicotine dependence; Z20.822 Contact with and (suspected) exposure to COVID-19
CPT/HCPCS: 10060; 36415; 36600; 70450; 71045; 80048; 80053; 80202; 80307; 81001; 82077; 82805; 82948; 83605; 83690; 83735; 84100; 84145; 84443; 85018; 85025; 85610; 85730; 87040; 87637; 93005; 93306; 94667; 96360; 96361; 96365; 96367; 96372; 96375; 97161; 97165; 99285; A9270; G0378; J1650; J3370; J7030; J7512

== ENCOUNTER 2024-05-31 12:29 | Emergency (ER) | payer MEDICARE, SELFPAY ==
[2024-05-31] VITALS (9 sets, daily range): BP systolic 107–115; BP diastolic 65–75; PULSE 61–75; RESP 12–22; TEMP 36.4; O2SAT 96–99
--- NOTE | ~2024-05-31 | XR_ITS ---
EXAMINATION: XR chest 1V portable DATE: 05/31/2024 13:52 INDICATION: Dyspnea. TECHNIQUE: A single frontal view of the chest was obtained. COMPARISON: Chest single view 05/19/2024, chest 2 views 02/15/2016 FINDINGS: The patient is rotated to his left. There is no pneumonia, pleural effusion, or pneumothora x. The heart size is normal. IMPRESSION: 1. No acute cardiopulmonary disease. Reviewed, dictated and finalized at location A. IS THERAPIST
--- NOTE | 2024-05-31 12:35 | ECG_ITS ---
Test Date: 2024-05-31 12:37:29 Measurements Intervals [place] Rate: 70 P: 30 HI: 179 QRS: -72 QRSD: 136 T: -4 QT: 436 QTc: 473 Interpretive Statements SINUS RHYTHM RIGHT BUNDLE BRANCH BLOCK LEFT ANTERIOR FASCICULAR BLOCK BASELINE ARTIFACT- I, II, III, AVR, AVL, AVF, V1-V6 ABNORMAL ECG Compared to ECG 05/19/2024 18:31:29 NO SIGNIFICANT CHANGE Electronically Signed On 06-01-2024 10:38:31 HOURLY CAREGIVER by Adrián Wilson D.O.
--- NOTE | 2024-05-31 12:54 | ED.GENADULT ---
HPI - General Adult General Chief complaint: Shortness of Breath/Dyspnea Stated complaint: dyspnea History of Present Illness HPI narrative: 83-year-old male present to the emergency department for evaluation after reported episode of dyspnea. Patient was recently treated for influenza. Staff states that he had a short episode Dyspnea. Patient does have dementia at baseline and patient does not recall having any shortness of breath. Patient is resting comfortably on room air at time of evaluation and patient denies any complaints. Patient's lungs are clear to auscultation. Related Data Home Medications ?Medication ?Instructions ?Recorded ?Confirmed ?Last Taken ?Type amlodipine 5 mg tablet 5 mg PO .qam 05/20/24 05/20/24 05/19/24 History atorvastatin 40 mg tablet 40 mg PO QHS 05/20/24 05/20/24 05/18/24 21:30 History citalopram 10 mg tablet 10 mg PO DAILY 05/20/24 05/20/24 05/19/24 08:00 History divalproex 125 mg tablet,delayed 125 mg PO BID 05/20/24 05/20/24 05/19/24 History release divalproex 250 mg tablet,delayed 250 mg PO DAILY@1200 05/20/24 05/20/24 05/19/24 12:00 History release donepezil 23 mg tablet (Aricept) 23 mg PO QHS 05/20/24 05/20/24 05/18/24 21:30 History memantine 10 mg tablet 10 mg PO .q12hr 05/20/24 05/20/24 05/19/24 08:00 History multivitamin with folic acid 400 1 tablet PO DAILY 05/20/24 05/20/24 05/19/24 08:00 History mcg tablet (Tab-A-Luis) ramelteon 8 mg tablet 8 mg PO HS 05/20/24 05/20/24 05/18/24 History Allergies Allergy/AdvReac Type Severity Reaction Status Date / Time No Known Allergies Allergy Verified 05/20/24 02:47 Review of Systems Review of Systems: All systems reviewed & are unremarkable except as noted in HPI and below PMFSH Past Medical History Medical History (Updated 05/31/24 @ 14:08 by Yeyo Sims MD) Alcohol abuse Vitamin D deficiency Dementia BPH (benign prostatic hyperplasia) Hepatic steatosis Glaucoma (increased eye pressure) Corneal dystrophy Lead exposure Arthritis Essential (primary) hypertension Mixed hyperlipidemia Surgical History Surgical History (Updated 05/20/24 @ 07:47 by Cyndee Davis DO) Status post cataract extraction of both eyes with insertion of intraocular lens Hx of blepharoplasty History of total knee arthroplasty Family History Family History Father Hypertension Cerebrovascular accident Sibling Patient's sister is in good health Family history of lymphoma Social History Social History (Updated 05/19/24 @ 22:54 by Cyndee Davis DO) Social History: He is and resides at [facility]. Code status: DNR/DNI Healthcare power of attorney recruiter: Kana Sigourney Years smoked: 20 Smoking status: Former smoker Tobacco type: cigarettes Second hand tobacco smoke exposure: No Alcohol intake: never Alcohol use details: Occasionally Substance use: never Substance use type: does not use Do You Feel Safe in your Home?: Yes Lack of Transportation: No Lack of Food: Never True Current Housing: I Have Housing Concerned About Future Housing: No Difficulty Paying Gas/Electric Bills: No Difficulty Paying for Meds: No Currently Unemployed: No Education: Don't Know Difficulty w/ Childcare or Family Care: No Living arrangements: alone Additional living arrangements comments: Occupation/Education: retired Gender identity (if verbalized by the patient): Male Sexual Orientation (if Verbalized by the Patient): Straight or Heterosexual Spiritual care concerns: No Exam Narrative: APPEARANCE: Well appearing, no pain, no distress, well-nourished. HEAD: normocephalic, atraumatic. EYES: PERRLA/EOMI, conjunctivae clear. NOSE: Normal no drainage EARS:TMS clear with good light reflex. THROAT: Pharynx clear, no exudate. NECK: Supple. No adenopathy, no masses. RESPIRATORY: Airway patent, respirations nonlabored. Clear to auscultation bilaterally, no rales, rhonchi, wheezing. CARDIOVASCULAR: Regular rate and rhythm without murmurs rubs or gallops. ABDOMINAL: Soft, nontender, nondistended, normal bowel sounds MUSCULOSKELETAL: Moves all extremities. Strength/ROM intact, No edema, No calf tenderness. NEURO: Alert. Cranial nerves II through XII intact. Good gait. Good coordination SKIN: Warm, dry. Normal Color PSYCHIATRIC: Normal affect/mood. Course Vital Signs Vital signs: Vital Signs Temperature 97.6 F 05/31/24 12:30 Pulse Rate 64 05/31/24 12:30 Respiratory Rate 14 05/31/24 12:30 Blood Pressure 115/75 05/31/24 12:30 Pulse Oximetry 99 05/31/24 12:30 Oxygen Delivery Room Air 05/31/24 12:30 Temperature 97.6 F 05/31/24 12:30 Pulse Rate 61 05/31/24 13:49 Respiratory Rate 15 05/31/24 13:49 Blood Pressure 114/66 05/31/24 13:49 Pulse Oximetry 96 05/31/24 13:49 Oxygen Delivery Room Air 05/31/24 12:38 Medical Decision Making MDM Narrative Medical decision making narrative: 83-year-old male presenting to the emergency department for evaluation after an episode of dyspnea. Patient has dementia at baseline does not recall the episode. Family member was present during the episode and states that was short lasting. Patient is well-appearing now denies any shortness of breath. Patient was able to ambulate it is baseline. Chest x-ray shows no acute cardiopulmonary abnormality. Patient and family are updated the results of the workup. Differential Diagnosis Differential Diagnosis: COVID, RSV, influenza, pneumonia, COPD, wheezing Vital Signs Vital Signs: Vital Signs Temperature 97.6 F 05/31/24 12:30 Pulse Rate 64 05/31/24 12:30 Respiratory Rate 14 05/31/24 12:30 Blood Pressure 115/75 05/31/24 12:30 Pulse Oximetry 99 05/31/24 12:30 Oxygen Delivery Room Air 05/31/24 12:30 Temperature 97.6 F 05/31/24 12:30 Pulse Rate 61 05/31/24 13:49 Respiratory Rate 15 05/31/24 13:49 Blood Pressure 114/66 05/31/24 13:49 Pulse Oximetry 96 05/31/24 13:49 Oxygen Delivery Room Air 05/31/24 12:38 Imaging Data Radiologist's impression: Impressions Chest X-Ray 05/31/24 13:54 IMPRESSION: 1. No acute cardiopulmonary disease. Discharge Plan Discharge Clinical Impression: Acute dyspnea Patient Disposition: NH Nursing Home/Asst Living Condition: Stable Instructions: Antibiotic Form, Wheezing (ED) Additional Instructions: Have close follow-up with your primary care physician Patient Language: Luxembourgish Prescriptions: No Action amlodipine 5 mg tablet 5 mg PO .qam citalopram 10 mg tablet 10 mg PO DAILY divalproex 250 mg tablet,delayed release (DR/EC) 250 mg PO DAILY@1200 multivitamin with folic acid [Tab-A-Luis] 400 mcg tablet 1 tablet PO DAILY divalproex 125 mg tablet,delayed release (DR/EC) 125 mg PO BID memantine 10 mg tablet 10 mg PO .q12hr atorvastatin 40 mg tablet 40 mg PO QHS donepezil [Aricept] 23 mg tablet 23 mg PO QHS ramelteon 8 mg tablet 8 mg PO HS guaifenesin [Mucus Relief ER] 600 mg Tablet Extended Release 12hr 1,200 mg PO Q12HR Qty: 20 0RF atropine 1 % drops 1 drp RIGHT EYE BID Qty: 15 0RF losartan 100 mg tablet 100 mg PO DAILY Qty: 90 1RF tamsulosin 0.4 mg capsule 0.4 mg PO DAILY Qty: 90 1RF latanoprost 0.005 % drops 1 drp EACH EYE QPM Qty: 7.5 0RF Follow-up/Referrals: Aaron,Mindy Perea MD [Primary Care Provider] -
--- OUTSIDE RECORDS SUMMARY | 2024-05-31 15:01 | XMS_ITS | Clinical Summary ---
[place] [facility] [place] [address] Address [address] [place] [address] Care Team Providers Care Human Resources Safety Manager Name Role Phone Mindy Walker MD Primary [...] route every day 0 0 6 Active [id number]-epa -fish oil (OMEGA 3) 350-400 mg capsule [...] on file Legal Sex Male 4:02 PM INDUSTRIAL ENGINEERING ANALYST Gender Identity Not on file Sexual Orientation Not on file Obstetrics History Last Filed Vital Signs Vital Sign Reading Time Taken Comments Blood Pressure 138/81 05/16/2015 2:16 PM INDUSTRIAL ENGINEERING ANALYST Pulse 74 05/16/2015 2:16 PM INDUSTRIAL ENGINEERING ANALYST Temperature - - Respiratory Rate - - Oxygen Saturation - - Inhaled Oxygen Concentration - - Weight 102.1 kg (225 lb) 05/16/2015 2:16 PM INDUSTRIAL ENGINEERING ANALYST Height 175.3 cm (5' 9 ) 05/16/2015 2:16 PM INDUSTRIAL ENGINEERING ANALYST Body Mass Index 33.23 05/16/2015 2:16 PM INDUSTRIAL ENGINEERING ANALYST Plan of Treatment Not on file Insurance MEDICARE [employer] [place] Care Teams Human Resources Safety Manager Relationship Specialty Start Date End Date Mindy Walker MD [address] [place] [address] PCP - General 05/24/15
--- OUTSIDE RECORDS SUMMARY | 2024-05-31 15:01 | XMS_ITS | Referral Summary ---
Author Organization [facility] [place] [address] Address [address] [place] [address] Care Team Providers Care Director Of Business Services Name Role Phone Mindy Walker MD Primary [...] route every day 0 0 6 Active qjeiu-3m-ock-epa -fish oil (OMEGA 3) 350-400 mg capsule [...] on file Legal Sex Male 4:02 PM GROUNDMAN/LINEMAN Gender Identity Not on file Sexual Orientation Not on file Last Filed Vital Signs Vital Sign Reading Time Taken Comments Blood Pressure 138/81 05/16/2015 2:16 PM GROUNDMAN/LINEMAN Pulse 74 05/16/2015 2:16 PM GROUNDMAN/LINEMAN Temperature - - Respiratory Rate - - Oxygen Saturation - - Inhaled Oxygen Concentration - - Weight 102.1 kg (225 lb) 05/16/2015 2:16 PM GROUNDMAN/LINEMAN Height 175.3 cm (5' 9 ) 05/16/2015 2:16 PM GROUNDMAN/LINEMAN Body Mass Index 33.23 05/16/2015 2:16 PM GROUNDMAN/LINEMAN Plan of Treatment [place] [address] MEDICARE [facility] Care Teams Director Of Business Services Relationship Specialty Start Date End Date Mindy Walker MD [address] [place], [place] [id number] PCP - General 05/24/15
== END 2024-05-31 15:53 ==
PROVIDERS: Emergency Provider Emergency Medicine; PCP Family Medicine
DX: R06.00 Dyspnea, unspecified (principal); F03.90 Unspecified dementia, unspecified severity, without behavioral disturbance, psychotic disturbance, mood disturbance, and anxiety; M19.90 Unspecified osteoarthritis, unspecified site; E78.5 Hyperlipidemia, unspecified; I10 Essential (primary) hypertension; K76.0 Fatty (change of) liver, not elsewhere classified; R94.31 Abnormal electrocardiogram [ECG] [EKG]
CPT/HCPCS: 71045; 93005; 99283

== ENCOUNTER 2024-07-13 09:00 | Emergency (ER) | payer MEDICARE, SELFPAY ==
--- NOTE | ~2024-07-13 | XR_ITS ---
EXAMINATION: XR chest 2V 07/13/2024 10:35 INDICATION: Lethargy PROCEDURE: 2 view chest COMPARISON: Comparison to multiple prior studies sequentially, with oldest reviewed study dated 11/2014. FINDINGS: The lungs are clear. The cardiomediastinal silhouette is within normal limits. There are no pleural effusions. There is no pneumothorax suspected. IMPRESSION: 1: NO ACUTE CARDIOPULMONARY DISEASE. Reviewed, dictated and finalized at location A.
--- NOTE | ~2024-07-13 | CT_ITS ---
CT head without contrast Indication: Altered mental status COMPARISON: 05/19/2024 Technique: Serial scans were obtained through the brain without the administration of contrast. Dose reduction technique was used on this scan by utilizing automated exposure control and iterative recon struction technique. The dose-length product (DLP) was 605.33 mGy-cm. Findings: There is no evidence of intracranial hemorrhage, mass lesion, or acute infarct. The ventri cles and subarachnoid spaces are dilated, consistent with mild to moderate atrophy. Low attenuation regions are seen within the periventricular white matter bilaterally, likely representing changes fro m chronic microvascular ischemic disease. There is no evidence of edema, mass effect or midline shif t. The visualized paranasal sinuses and mastoid air cells are clear. Impression: No intracranial hemorrhage, mass, or acute infarct. Atrophy and chronic white matter changes, as above. Reviewed, dictated and finalized at location . Impression: No intracranial hemorrhage, mass, or acute infarct. Atrophy and chronic white matter changes, as above.
[2024-07-13 09:02] VITALS: BP 152/81; PULSE 57; RESP 16; TEMP 36.5; O2SAT 100
--- NOTE | 2024-07-13 09:05 | ECG_ITS ---
Test Date: 2024-07-13 09:06:41 Measurements Intervals [place] Rate: 50 P: 18 [place]: 187 QRS: -50 QRSD: 145 T: 2 QT: 453 QTc: 415 Interpretive Statements SINUS BRADYCARDIA RIGHT BUNDLE BRANCH BLOCK LEFT ANTERIOR FASCICULAR BLOCK BASELINE ARTIFACT- I, III, AVR, AVL, AVF, V1-V6 ABNORMAL ECG Compared to ECG 05/31/2024 12:37:29 HEART RATE HAS DECREASED Electronically Signed On 07-13-2024 12:27:46 CDT by Adrián Wilson D.O.
--- NOTE | 2024-07-13 09:08 | ED_ITS ---
HPI - Weakness General Chief complaint: Weakness Stated complaint: lethargic Source: patient and old records reviewed Mode of arrival: EMS Limitations: dementia History of Present Illness HPI Narrative: Patient is an 83 y/o male, with PMH of dementia, who presents to the ED via EMS with c/o lethargy. Patient is a resident of [facility]. Typically A&O X1 at baseline, A&OX3 upon my evaluation. Staff reported that patient was increasingly lethargic this morning, did not want to get out of bed for breakfast. Typically more active/talkative. Sent here for further evaluation. Patient admits that he did not sleep well last night. He denies any acute complaints. Does not know why he is in the hospital. Denies pain. Denies chest pain, shortness breath, nausea, dizziness. Related Data Home Medications ?Medication ?Instructions ?Recorded ?Confirmed ?Last Taken ?Type amlodipine 5 mg tablet 5 mg PO .qam 05/20/24 05/20/24 05/19/24 History atorvastatin 40 mg tablet 40 mg PO QHS 05/20/24 05/20/24 05/18/24 21:30 History citalopram 10 mg tablet 10 mg PO DAILY 05/20/24 05/20/24 05/19/24 08:00 History divalproex 125 mg tablet,delayed 125 mg PO BID 05/20/24 05/20/24 05/19/24 History release divalproex 250 mg tablet,delayed 250 mg PO DAILY@1200 05/20/24 05/20/24 05/19/24 12:00 History release donepezil 23 mg tablet (Aricept) 23 mg PO QHS 05/20/24 05/20/24 05/18/24 21:30 History memantine 10 mg tablet 10 mg PO .q12hr 05/20/24 05/20/24 05/19/24 08:00 History multivitamin with folic acid 400 1 tablet PO DAILY 05/20/24 05/20/24 05/19/24 08:00 History mcg tablet (Tab-A-Luis) ramelteon 8 mg tablet 8 mg PO HS 05/20/24 05/20/24 05/18/24 History Allergies Allergy/AdvReac Type Severity Reaction Status Date / Time No Known Allergies Allergy Verified 07/13/24 09:09 Review of Systems 2 Review of Systems: All systems reviewed & are unremarkable except as noted in HPI. All systems reviewed & are unremarkable except as noted in HPI and below PMFSH Past Medical History Medical History Alcohol abuse Vitamin D deficiency Dementia BPH (benign prostatic hyperplasia) Hepatic steatosis Glaucoma (increased eye pressure) Corneal dystrophy Lead exposure Arthritis Essential (primary) hypertension Mixed hyperlipidemia Surgical History Surgical History Status post cataract extraction of both eyes with insertion of intraocular lens Hx of blepharoplasty History of total knee arthroplasty Family History Family History Father Hypertension Cerebrovascular accident Sibling Patient's sister is in good health Family history of lymphoma Social History Social History Social History: He is and resides at [facility]. Code status: DNR/DNI Healthcare power of title attorney: Kana Grimes Years smoked: 20 Smoking status: Former smoker Tobacco type: cigarettes Second hand tobacco smoke exposure: No Alcohol intake: never Alcohol use details: Occasionally Substance use: never Substance use type: does not use Do You Feel Safe in your Home?: Yes Lack of Transportation: No Lack of Food: Never True Current Housing: I Have Housing Concerned About Future Housing: No Difficulty Paying Gas/Electric Bills: No Difficulty Paying for Meds: No Currently Unemployed: No Education: Don't Know Difficulty w/ Childcare or Family Care: No Living arrangements: alone Additional living arrangements comments: Occupation/Education: retired Gender identity (if verbalized by the patient): Male Sexual Orientation (if Verbalized by the Patient): Straight or Heterosexual Spiritual care concerns: No Exam 2 Narrative: GENERAL: Elderly, well-nourished, non-toxic, in no acute distress. HEAD: Normocephalic, atraumatic. EYES: PERRL/EOMI, conjunctivae clear bilaterally. No nystagmus. NECK: Supple. No meningeal signs. RESPIRATORY: Airway patent, respirations nonlabored. Clear to auscultation bilaterally, no rales, rhonchi, wheezing. No significant focal lung sounds. CARDIOVASCULAR: Bradycardic with regular rhythm without murmurs, rubs, or gallops. Radial pulses 2+ and equal bilaterally. ABDOMINAL: Soft, nontender, nondistended. Normoactive BS. MUSCULOSKELETAL: Moves all extremities. No gross deformities. SKIN: Warm, dry, normal color. No rashes. NEURO: A&O X2-3. Speech clear. Follows commands. CN II-XII grossly intact. Sensation grossly intact. Steady gait. No ataxic movements. Strength 5/5 in upper and lower extremities bilaterally. No pronator drift. Equal cement sprayer helper strength bilaterally. PSYCHIATRIC: Appropriate mood and affect. Normal interaction. Course Vital Signs Vital signs: Vital Signs Temperature 97.7 F 07/13/24 09:02 Pulse Rate 57 L 07/13/24 09:02 Respiratory Rate 16 07/13/24 09:02 Blood Pressure 152/81 H 07/13/24 09:02 Pulse Oximetry 100 07/13/24 09:02 Oxygen Delivery Room Air 07/13/24 09:02 Temperature 97.9 F 07/13/24 12:42 Pulse Rate 61 07/13/24 12:42 Respiratory Rate 18 07/13/24 12:42 Blood Pressure 140/80 07/13/24 12:42 Pulse Oximetry 98 07/13/24 12:42 Oxygen Delivery Room Air 07/13/24 09:02 MDM - Weakness MDM Narrative Medical decision making narrative: Patient presented to ED from local [facility] with report of lethargy. Vital signs are stable upon arrival. Patient is slightly bradycardic. This appears chronic for him, consistent with previous records/ER visits. EKG without concerning ischemic changes. Patient has no acute complaints. Denying any pain. Neurologically intact. No appreciable focal deficits. Will obtain workup to rule out metabolic causes. CT brain negative, no acute findings. Chest x-ray is clear. Laboratory studies are unremarkable. No leukocytosis or anemia. Stable electrolytes. Stable kidney function. Lactic acid within normal range. UA without signs of infection. Viral swabs are negative. Overall workup non revealing. Patient has remained stable throughout ED stay, continues to deny any concerns. Will be discharged back to the facility. Patient and family in agreement with this plan. Discussed return precautions. Discharged in stable condition. Medical Records Attestation: I reviewed the patient's medical records. Lab Data Attestation: I reviewed the patient's lab results. 07/13/24 09:50 07/13/24 09:50 Labs: Lab Results 07/13/24 07/13/24 Range/Units 09:50 10:02 WBC 6.0 (4.5-10.0) K/mm3 RBC 4.99 (4.6-6.20) M/mm3 Hgb 15.2 (14.0-18.0) g/dL Hct 45.8 (42.0-52.0) % MCV 91.8 (80-100) fl MCH 30.5 (26-34) pg MCHC 33.2 (32-36) g/dl RDW 13.2 (11.5-14.5) % Plt Count 174 (150-375) k/mm3 MPV 9.7 (7.4-10.4) fl Immature Gran % (Auto) 0.3 (0-0.5) % Neut % (Auto) 68.3 (45.5-73.1) % Lymph % (Auto) 19.6 (18.3-44.2) % Bowman % (Auto) 7.3 (2.6-8.5) % Eos % (Auto) 3.2 (0-4.4) % Baso % (Auto) 1.3 H (0.2-1.2) % Lymph # (Auto) 1.18 (0.9-3.2) K/mm3 Bowman # (Auto) 0.4 (0.1-0.6) K/mm3 Eos # (Auto) 0.2 (0-0.3) K/mm3 Baso # (Auto) 0.1 (0.0-0.1) K/mm3 Abs Immat Gran (auto) 0.02 (0.00-0.031) K/mm3 Absolute Neuts (auto) 4.1 (1.3-6.7) K/mm3 Absolute Nucleated RBC 0.000 (0.0-0.012) K/mm3 Nucleated RBC % 0.0 (0.0-0.2) % PT 13.6 (11.1-14.7) Seconds INR 1.0 APTT 28.4 (22.3-36.8) Seconds Sodium 140 (137-145) mmol/L Potassium 4.5 (3.4-5.0) mmol/L Chloride 104 (98-107) mmol/L Carbon Dioxide 26 (22-30) mmol/L Anion Gap 10 (4-12) mmol/L BUN 14 (9-20) mg/dL Creatinine 0.88 (0.7-1.3) mg/dL Estim Creat Clear Calc 58 ml/min Estimated GFR > 60 (59 - ) Glucose 89 (65-110) mg/dL Lactic Acid 1.8 (0.7-2.0) mmol/L Calcium 9.6 (8.4-10.2) mg/dL Magnesium 2.2 (1.6-2.3) mg/dL Total Bilirubin 1.3 (0.2-1.3) mg/dL AST 39 (17-59) U/L ALT 63 H (6-50) U/L Alkaline Phosphatase 77 (38-126) U/L Total Protein 8.0 (6.3-8.2) g/dL Albumin 4.4 (3.5-5.1) g/dL Urine Color Yellow (Yellow) Urine Appearance Clear (Clear) Urine pH 7.5 (5.0-9.0) Ur Specific [place] 1.017 (1.001-1.035) Urine Protein Negative (Negative) mg/dL Urine Glucose (UA) Negative (Negative) mg/dL Urine Ketones Trace H (Negative) mg/dL Ur Blood (Man) Negative (Negative) Urine Nitrate Negative (Negative) Urine Bilirubin Negative (Negative) Urine Urobilinogen 0.2 (<2.0) mg/dL Leukocyte Esterase Rfl Negative (Negative) NIR/UL Influenza A (RT-PCR) Negative (Negative) Influenza B (RT-PCR) Negative (Negative) RSV (RT-PCR) Negative (Negative) SARS-CoV-2 RNA (RT-PCR) Negative (Negative) Imaging Data Attestation: I personally reviewed and interpreted this imaging study as follows: Radiologist's impression: ITS Impressions Head CT 07/13/24 10:35 Impression: No intracranial hemorrhage, mass, or acute infarct. Atrophy and chronic white matter changes, as above. Chest X-Ray 07/13/24 10:40 IMPRESSION: 1: NO ACUTE CARDIOPULMONARY DISEASE. ECG Data EKG #1: Attestation: I personally reviewed and interpreted this ECG as follows: ECG completion date: 07/13/24 ECG completion time: 09:06 EKG Interpretation: bradycardia (50), sinus rhythm, non-specific ST changes and RBBB Discharge Plan Discharge Clinical Impression: Fatigue Qualifiers: Fatigue type: unspecified Qualified Code(s): R53.83 - Other fatigue Patient Disposition: [facility] Long Term/Asst Living Condition: Stable Instructions: Antibiotic Form, Weakness (ED), Fatigue (ED) Additional Instructions: Patient's workup here was reassuring. Follow-up closely with primary care doctor for further evaluation. Return patient to the ED if you experiences worsening or severe weakness, passing out, severe dizziness or lightheadedness, unable to keep down food or drink, chest pain, difficulty breathing, or any other symptoms of concern. Patient Language: Togolese Prescriptions: No Action amlodipine 5 mg tablet 5 mg PO .qam citalopram 10 mg tablet 10 mg PO DAILY divalproex 250 mg tablet,delayed release (DR/EC) 250 mg PO DAILY@1200 multivitamin with folic acid [Tab-A-Luis] 400 mcg tablet 1 tablet PO DAILY divalproex 125 mg tablet,delayed release (DR/EC) 125 mg PO BID memantine 10 mg tablet 10 mg PO .q12hr atorvastatin 40 mg tablet 40 mg PO QHS donepezil [Aricept] 23 mg tablet 23 mg PO QHS ramelteon 8 mg tablet 8 mg PO HS guaifenesin [Mucus Relief ER] 600 mg Tablet Extended Release 12hr 1,200 mg PO Q12HR Qty: 20 0RF atropine 1 % drops 1 drp RIGHT EYE BID Qty: 15 0RF losartan 100 mg tablet 100 mg PO DAILY Qty: 90 1RF tamsulosin 0.4 mg capsule 0.4 mg PO DAILY Qty: 90 1RF latanoprost 0.005 % drops 1 drp EACH EYE QPM Qty: 7.5 0RF Follow-up/Referrals: Aaron,Mindy Perea MD [Primary Care Provider] - Time of Disposition: 11:44
[2024-07-13 09:13] VITALS: PULSE 50
--- OUTSIDE RECORDS SUMMARY | 2024-07-13 09:42 | XMS_ITS | Continuity of Care Document ---
Author Organization [facility] Address [id number] [place] [address] [address] Phone Care Team Providers Care Food Server Name Role Phone [facility] Unavailable Unavail able Sickage, Cassie Unavailable Unavailable [...] Diagnoses Date Provider Providers Copied on Encounter [facility], [address] [place] [address] [address], [place], [place], [id number], tel:[phone] [facility] No Information Jan- 9-201 0 [facility] . [address] [facility], [facility] [address], [place], [place], [id number], . tel:[phone] Referring Provider: Jennifer Cochran, [address], [place], [address]. tel:[phone] Provider: Cassie Ayala, [address] [place], [address]. tel:[phone] [facility], [address] [place] [address] [address], [place], [place], [address], [place] tel:[phone] [facility] No Information Jan-1 2-201 0 Gris Mcintyre [address] [facility] , [address], [place], [address], [place]. tel:[phone] Referring Provider: Jennifer Cochran, [address], [place], [address]. tel:[phone] [facility], [address] [place] [address] [address], [place], [place], [address], [place] tel:[phone] [facility] No Information Shamir-0 8-201 0 Gris Mcintyre [address] , [address], [place], [place], [facility], [place]. tel:[phone] Referring Provider: Jennifer Cochran, [address], [place], [facility]. tel:[phone] [facility], [address] [place] [address] [address], [place], [place], [address], [place] tel:[phone] [facility] No Information Shamir-0 7-201 0 Gris Rodriguez. [address] , [address], [place], [facility], [place]. tel:[phone] Referring Provider: Jennifer Cochran, [address], [place], [facility]. tel:[phone] Office/outpat ient Visit, [facility], [address] [facility] [address], [place], [place], [address], [place] tel:[phone] [facility] No Information 2 6-201 0 Gris Rodriguez. [address] , [address], [place], [facility], [place]. tel:[phone] Office/outpat ient Visit, [facility], [address], [place], [place], [address], [place] tel:[phone] [facility] No Information Dec-2 2-200 9 Gris Rodriguez. [address] , [address], [place], [facility], [place]. tel:[phone] [facility], [address], [place], [place], [address], [place] tel:[phone] [facility] No Information August-1 9-200 9 Gris Rodriguez. [address] , [address], [place], [facility], [place]. tel:[phone] Referring Provider: Jennifer Cochran, [address], [place], [facility]. tel:[phone] [facility], [address], [place], [place], [address], [place] tel:[phone] [facility] No Information 8-200 9 Gris Rodriguez. [address] , [address], [place], [facility], [place]. tel:[phone] Referring Provider: Jennifer Cochran, [address], [place], [facility]. tel:[phone] Office/outpat ient Visit, [facility], [address], [place], [place], [address], [place] tel:[phone] [facility] No Information 0200 9 Gris Rodriguez. [address] , [address], [place], [facility], [place]. tel:[phone] Office/outpat ient Visit, [facility], [address], [place], [place], [address], [place] tel:[phone] [facility] No Information 6200 8 Gris Rodriguez. [address] , [address], [place], [facility], [place]. tel:[phone] Referring Provider: Jennifer Cochran, [address], [place], [facility]. tel:[phone] [facility], [address], [place], [place], [address], [place] tel:[phone] [facility] No Information 0200 8 Gris Rodriguez. [address] , [address], [place], [facility], [place]. tel:[phone] Referring Provider: Jennifer Cochran, [address], [place], [facility]. tel:[phone] Office/outpat ient Visit, Est [facility], [address], [place], [place], [address], [place] tel:[phone] [facility] No Information 2 8 Gris Rodriguez. [address] , [address], [place], [facility], [place]. tel:[phone] [facility], [address], [place], [place], [address], [place] tel:[phone] [facility] No Information 7 [facility] . [address] [facility], [address], [place], [place], [address], [place]. tel:[phone] Referring Provider: Jennifer Cochran, [address], [place], [facility]. tel:[phone] sulting Provider: Cassie Ayala, [address] [place] [address], [facility]. tel:[phone] [facility], [address], [place], [place], [address], [place] tel:[phone] [facility] No Information 7 Gris Rodriguez. [address] , [address], [place], [facility], [place]. tel:[phone] Referring Provider: Jennifer Cochran, [address], [place], [facility]. tel:[phone] [facility], [address], [place], [place], [address], [place] tel:[phone] [facility] No Information 7 Gris Rodriguez. [address] , [address], [place], [facility], [place]. tel:[phone] Referring Provider: Jennifer Cochran, [address], [place], [address]. tel:[phone] Office/outpat ient Visit, [facility], [address], [place], [place], [address], [place] tel:[phone] [facility] No Information Mar-2 0-200 7 Landry Jennifer. [address] , [address], [place], [address], [place]. tel:[phone] Family History Family Member Type Diagnosis Age At Onset No Information Payers Payer name Insurance type Covered constitution party ID Authoriza tion(s) No Information Social [...]
--- OUTSIDE RECORDS SUMMARY | 2024-07-13 09:42 | XMS_ITS | Referral Summary ---
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 Gender Identity Not on file Sexual Orientation Not on file Last Filed Vital Signs Vital Sign Reading Time Taken Comments Blood Pressure 138/81 05/16/2015 2:16 PM LEAD MASSAGE THERAPIST Pulse 74 05/16/2015 2:16 PM LEAD MASSAGE THERAPIST Temperature - - Respiratory Rate - - Oxygen Saturation - - Inhaled Oxygen Concentration - - Weight 102.1 kg (225 lb) 05/16/2015 2:16 PM LEAD MASSAGE THERAPIST Height 175.3 cm (5' 9 ) 05/16/2015 2:16 PM LEAD MASSAGE THERAPIST Body Mass Index 33.23 05/16/2015 2:16 PM LEAD MASSAGE THERAPIST Plan of Treatment [place] [address] MEDICARE [facility] Care Teams Youth Career Specialist Relationship Specialty Start Date End Date Mindy Walker MD [address] [place], [place] [id number] PCP - General 05/24/15
--- OUTSIDE RECORDS SUMMARY | 2024-07-13 09:42 | XMS_ITS | Clinical Summary ---
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 Gender Identity Not on file Sexual Orientation Not on file Obstetrics History Last Filed Vital Signs Vital Sign Reading Time Taken Comments Blood Pressure 138/81 05/16/2015 2:16 PM MUSEUM PREPARATOR Pulse 74 05/16/2015 2:16 PM MUSEUM PREPARATOR Temperature - - Respiratory Rate - - Oxygen Saturation - - Inhaled Oxygen Concentration - - Weight 102.1 kg (225 lb) 05/16/2015 2:16 PM MUSEUM PREPARATOR Height 175.3 cm (5' 9 ) 05/16/2015 2:16 PM MUSEUM PREPARATOR Body Mass Index 33.23 05/16/2015 2:16 PM MUSEUM PREPARATOR Plan of Treatment Not on file Insurance MEDICARE [employer] [place] [place] Care Teams Oral Surgery Assistant Relationship Specialty Start Date End Date Mindy Walker MD [address] [facility] [address] [place] [address] PCP - General 05/24/15
[2024-07-13 10:10] LABS: Basophils Absolute Auto 0.1 K/mm3 (0.0-0.1); Basophils Percent Auto 1.3 % (0.2-1.2); Eosinophils Absolute Auto 0.2 K/mm3 (0-0.3); Eosinophils Percent Auto 3.2 % (0-4.4); Hematocrit 45.8 % (42.0-52.0); Hemoglobin 15.2 g/dL (14.0-18.0); Immature Granulocyte Absolute 0.02 K/mm3 (0.00-0.031); Immature Granulocyte Percent A 0.3 % (0-0.5); Lymphocytes Absolute Auto 1.18 K/mm3 (0.9-3.2); Lymphocytes Percent Auto 19.6 % (18.3-44.2); Mean Corpuscular HGB Conc 33.2 g/dl (32-36); Mean Corpuscular Hemoglobin 30.5 pg (26-34); Mean Corpuscular Volume 91.8 fl (80-100); Mean Platelet Volume 9.7 fl (7.4-10.4); Monocytes Absolute Auto 0.4 K/mm3 (0.1-0.6); Monocytes Percent Auto 7.3 % (2.6-8.5); Neutrophils Absolute Auto 4.1 K/mm3 (1.3-6.7); Neutrophils Percent Auto 68.3 % (45.5-73.1); Platelet Count Result 174 k/mm3 (150-375); Red Blood Count 4.99 M/mm3 (4.6-6.20); Red Cell Distribution Width 13.2 % (11.5-14.5)
[2024-07-13 10:16] LABS: Add Urine Microscopic? NO; Appearance Urine Clear (Clear); Bilirubin Urine Negative (Negative); Blood Urine Negative (Negative); Color Urine Yellow (Yellow); Glucose Urine UA Negative (Negative); Ketones Urine Trace mg/dL (Negative); Leukocyte Esterase Ur Negative LEU/UL (Negative); Nitrate Urine Negative (Negative); Protein Urine Negative (Negative); Specific Grav Ur 1.017 (1.001-1.035); Urobilinogen Urine 0.2 mg/dL (<2.0); pH Urine 7.5 (5.0-9.0)
[2024-07-13 10:21] LABS: Lactic Acid Reflex 1.8 mmol/L (0.7-2.0)
[2024-07-13 10:22] LABS: Alanine Aminotransferase 63 U/L (6-50); Albumin Level 4.4 g/dL (3.5-5.1); Alkaline Phosphatase 77 U/L (38-126); Anion Gap 10 mmol/L (4-12); Aspartate Amino Transferase 39 U/L (17-59); Bilirubin,Total 1.3 mg/dL (0.2-1.3); Blood Urea Nitrogen 14 mg/dL (9-20); Calcium 9.6 mg/dL (8.4-10.2); Carbon Dioxide 26 mmol/L (22-30); Chloride 104 mmol/L (98-107); Estimated CRCL calculation 58 ml/min; Estimated Glomerular Filt Rate > 60; Glucose 89 mg/dL (65-110); Magnesium 2.2 mg/dL (1.6-2.3); Potassium 4.5 mmol/L (3.4-5.0); Sodium 140 mmol/L (137-145)
[2024-07-13 10:33] LABS: Prothrombin Time 13.6 Seconds (11.1-14.7)
[2024-07-13 10:34] LABS: Partial Thromboplastin Time 28.4 Seconds (22.3-36.8)
[2024-07-13 10:41] VITALS: BP 147/76; PULSE 50; RESP 18; O2SAT 99
[2024-07-13 10:49] LABS: Influenza A QL RT-PCR Negative (Negative); Influenza B QL RT-PCR Negative (Negative); RSV RNA, RT-PCR Negative (Negative); SARS-CoV-2 RNA PCR Negative (Negative)
[2024-07-13 11:00] VITALS: BP 142/83; PULSE 60; RESP 18; TEMP 36.6; O2SAT 98
[2024-07-13 12:42] VITALS: BP 140/80; PULSE 61; RESP 18; TEMP 36.6; O2SAT 98
== END 2024-07-13 12:42 ==
PROVIDERS: Emergency Provider Physician Assistant; PCP Family Medicine
DX: R53.83 Other fatigue (principal); R00.1 Bradycardia, unspecified; Z20.822 Contact with and (suspected) exposure to COVID-19; F03.90 Unspecified dementia, unspecified severity, without behavioral disturbance, psychotic disturbance, mood disturbance, and anxiety; N40.0 Benign prostatic hyperplasia without lower urinary tract symptoms; K76.0 Fatty (change of) liver, not elsewhere classified; M19.90 Unspecified osteoarthritis, unspecified site; I10 Essential (primary) hypertension; E78.5 Hyperlipidemia, unspecified
CPT/HCPCS: 36415; 70450; 71046; 80053; 81003; 83605; 83735; 85025; 85610; 85730; 87637; 93005; 99284